=== PATIENT | male | born 1960 | race Caucasian/White ===

== ENCOUNTER 2018-06-18 23:26 | Inpatient (IN) ==
[2018-06-19] MEDS ORDERED: Naloxone 0.4 MG/ML INJ IVP PRN ×2 (02:25→03:54)
[2018-06-19] MEDS ORDERED: traZODone 50 MG TABLET PO PRN (02:30)
--- NOTE | 2018-06-19 02:48 | Internal Med History&Physical ---
Date of Encounter: 06/19/18 Time of Encounter: 01:46 Internal Medicine - H&P: HPI Admitted From: Emergency Dept ([facility]) Plans for Post Hospital Care: Home History of present illness: Mr. Cruz is a 58 year old male who was initially seen at [facility] ED after becoming lightheaded and falling off a stool while drinking at a bar. Patient admits he was diaphoretic before and after falling; he reports nausea and one episode of non-bloody emesis after falling. He denies associated headache, chest pain, palpitations, dyspnea, loss of speech, slurred speech, confusion, extremity weakness. He also denies fevers, chills, night sweats. Patient denies any recent med changes or h/o OK. Admits to having a heart cath 5 years ago ([place]) while being worked up for TIA, work up also included carotid ultrasound and cardiac echo. States his heart cath showed 50% blockage of the small arteries and we was placed on aspirin and hypertension medications. During transfer to [facility], EMS noted pt was significantly hypotensive at 62/ 43 and his BP improved slightly (80's systolic) in [facility] ED. Imaging done in [facility] included a CT head which was negative for acute intracranial hemorrhage, but showed an area suggestive of an acute infarct. Per ED report, Dr. Coon of neurology was consulted regarding possible acute infarct on CT and feels it is most likely due to artifact. Lab work obtained in [facility] showed leukocytosis, negative troponin, and grossly normal metabolic panel. Urine drug screen was negative and alcohol level was <10. Patient transferred to [facility] for further care and workup of his hypotensive episode. Past Med Surg Social Fam HX - Past Medical History Medical history: arthritis, COPD, coronary artery disease, hypertension Psychiatric history: anxiety, depression - Past Surgical History Surgical History: hip replacement, knee replacement, orthopedic, other Additional surgical history: back surgery, colonoscopy - Social History Smoking Status: Current every day smoker Packs per day: .5 Smokeless Tobacco Status: No Alcohol use: occasionally Drug use: none Internal Medicine - H&P: Meds Aspirin [Lo-Dose Aspirin EC] 81 mg PO DAILY 01/30/18 [History] Lisinopril-HCTZ 10-12.5 [Prinzide 10-12.5] 1 each PO DAILY 01/30/18 [History] Trazodone HCl 300 mg PO HS PRN 01/30/18 [History] Tiotropium [Spiriva] 18 mcg IH DAILY 02/06/18 [History] 3 Allergy/AdvReac Type Severity Reaction Status Date / Time No Known Allergies Allergy Verified 07/09/17 14:07 All Systems PM: A 10-system review of systems was performed and is negative for pertinent findings except as documented above in the HPI. - Constitutional Constitutional: as per HPI, no anorexia, no fatigue, no weakness - EENT Eyes: no change in vision - Cardiovascular Cardiovascular ROS IM: as per HPI, diaphoresis, lightheadedness, no chest pain, no dyspnea, no edema, no irregular heart rhythm, no palpitations - Respiratory Respiratory: cough (chronic, unchanged from baseline), no dyspnea, no wheezing - Gastrointestinal Gastrointestinal: constipation, no abdominal pain, no coffee ground emesis, no diarrhea, no hematochezia, no melena - Genitourinary Genitourinary ROS male: no difficulty urinating, no dysuria, no hematuria - Musculoskeletal Musculoskeletal ROS IM: no numbness, no tingling - Neurological Neurological ROS: no abnormal speech, no confusion, no numbness, no paresthesias - Constitutional Vitals: Temp Pulse Resp BP Pulse Ox 98.1 F 85 16 110/72 96 06/19/18 01:10 06/19/18 01:10 06/19/18 01:10 06/19/18 01:10 06/19/18 01:10 Exam: General: vitals noted, AAO x3, no acute distress, answers questions appropriately HEENT: Normocephalic, head atraumatic, EOMI, PERRL Neck: trachea midline, supple Cardiovascular: RRR, no murmurs, no peripheral edema, peripheral pulses 2+ Respiratory: No wheezes/rhonchi/rales, no respiratory distress, CTAB Abdomen: Soft, nontender, normal bowel sounds present, non-distended, no rebound /rigidity/guarding MSK: RLE ROM limited by pain, all other extremities show good ROM Ext: no edema, no cyanosis, no clubbing Neuro: Alert, oriented x3, no focal deficits, no speech deficits, no facial droop, mentation intact, spontaneously moves all four extremities (RLE movement limited d/t pain), motor strength 5/5 all extremities, sensation grossly intact Psych: normal mood, normal affect, cooperative with exam Internal Med - H&P Results - Labs CBC & Chem 7: 06/19/18 03:44 06/19/18 03:44 - Assessment and plan (1) Episode of syncope Current Visit: Yes Status: Acute Assessment and plan: Etiology unclear--cannot exclude ACS Electrolytes grossly normal Hypovolemia less likely--denies diarrhea, bloody bowel movements, hematemesis, eating and drinking normally Anemia less likely given appropriate hgb and hct Cardiac monitoring Trend troponins Repeat EKG Echocardiogram Cardiology consult Carotid duplex bilateral Neurology consult Qualifiers: Syncope type: unspecified Qualified Code(s): R55 - Syncope and collapse (2) TIA (transient ischemic attack) Current Visit: Yes Status: Suspected Assessment and plan: Head CT negative for intracranial hemorrhage, but possible acute infarct in posterior left temporal lobe Pt reports h/o mini-strokes One-time dose 80 mg atorvastatin Neurology consulted (3) Hypotension Current Visit: No Status: Resolved Assessment and plan: On scene, EMS measured BP 62/43--SBP improved to 80 on arrival to [facility] Currently stable at 116/76 Hold home lisinopril-HCTZ IV NS @ 100 cc/hr Qualifiers: Hypotension type: unspecified hypotension type Qualified Code(s): I95.9 - Hypotension, unspecified (4) CAD (coronary artery disease) Current Visit: Yes Status: Chronic Assessment and plan: Pt reports h/o LHC in [place] 5 years ago that showed 50% blockage of small arteries Not currently on statin therapy Continue ASA 81 mg Check lipid panel Qualifiers: Coronary Disease-Associated Artery/Lesion type: unspecified vessel or lesion type [place] vs. transplanted heart: [place] heart Associated angina: angina presence unspecified Qualified Code(s): I25.10 - Atherosclerotic heart disease of [place] coronary artery without angina pectoris (5) Leukocytosis Current Visit: Yes Status: Acute Assessment and plan: WBC 15 Etiology unclear--possibly acute stress reaction; pt afebrile and no infectious source identified Recheck CBC Qualifiers: Leukocytosis type: unspecified Qualified Code(s): D72.829 - Elevated white blood cell count, unspecified (6) Hypertension Current Visit: No Status: Chronic Assessment and plan: Hold home med for now, last BP 110/72 Qualifiers: Hypertension type: unspecified Qualified Code(s): I10 - Essential (primary ) hypertension (7) COPD (chronic obstructive pulmonary disease) Current Visit: Yes Status: Chronic Assessment and plan: Continue Spiriva inhaler Albuterol neb PRN Qualifiers: COPD type: unspecified COPD Qualified Code(s): J44.9 - Chronic obstructive pulmonary disease, unspecified (8) DVT prophylaxis Current Visit: Yes Status: Acute Assessment and plan: 5,000 units SQ Heparin Q12H - Time Spent With Patient Total time spent is greater than 50% in coordination of care (as documented) at patient's floor/unit and/or counseling patient:
[2018-06-19] MEDS ORDERED: 0.9 % Sodium Chloride 1,000 ML IVC SCH (03:45)
[2018-06-19] MEDS ORDERED: Albuterol 2.5 MG/3 ML NEBULIZER IH PRN (03:48)
[2018-06-19 04:12] LABS: Basophils # 0.1 K/mcL (0.0-0.2); Basophils % 0.4 %; Eosinophils # 0.2 K/mcL (0.0-0.6); Eosinophils % 1.1 %; Hematocrit 37.9 % (37.5-50.1); Hemoglobin 12.9 g/dL (12.9-16.9); Immature Granulocytes % 0.7 % (0-4); Lymphocytes # 3.7 K/mcL (0.6-4.6); Lymphocytes % 20.9 %; Mean Corpuscular Hemoglobin 29.9 pg (28.0-33.3); Mean Corpuscular Volume 87.7 fL (83.0-100.0); Mean Platelet Volume 9.6 fL (9.4-12.4); Monocytes % 5.3 %; Neutrophils # 12.7 K/mcL (1.6-8.9); Platelet Count 257 K/mcL (140-400); Red Blood Count 4.32 M/mcL (4.19-5.50); Red Cell Distribution Width 14.3 % (11.5-14.5); Segmented Neutrophils % 71.6 %
[2018-06-19 04:35] LABS: Chol/HDL Ratio 3.1 (0-4.9); Cholesterol 127 mg/dL (< 200); HDL Cholesterol 41 mg/dL (40-59); LDL Cholesterol,Calculated 73 mg/dL (0-99); Triglycerides 66 mg/dL (< 150)
[2018-06-19 04:36] LABS: Troponin I < 0.03 ng/mL (< 0.04)
[2018-06-19 04:37] LABS: Alanine Aminotransferase 13 Units/L (7-52); Albumin 3.7 g/dL (3.5-5.7); Albumin/Globulin Ratio 2.2 (1.1-2.2); Alkaline Phosphatase 79 Units/L (34-104); Aspartate Amino Transferase 13 Units/L (13-39); BUN/Creatinine Ratio 22 (6-26); Bilirubin,Total 0.6 mg/dL (0.3-1.0); Blood Urea Nitrogen 16 mg/dL (8-23); Calcium 8.8 mg/dL (8.6-10.3); Carbon Dioxide 21 mEq/L (23-29); Chloride 104 mEq/L (98-107); Globulin 1.7 g/dL (2.4-3.5); Glucose 101 mg/dL (70-105); Osmolality,Calculated 275 (280-300); Potassium 3.5 mEq/L (3.5-5.1); Sodium 132 mEq/L (136-145); Total Protein 5.4 g/dL (6.4-8.9); eGFR For Non-African Americans > 60 (> 60)
[2018-06-19 04:50] LABS: Thyroid Stimulating Hormone 0.458 mcIU/mL (0.340-5.600)
[2018-06-19] MEDS: *HR* Heparin 5,000 UNIT/ML VIAL SQ SCH ×2 (05:45→20:43)
--- NOTE | 2018-06-19 07:35 | Event Note ---
Date of Encounter: 06/19/18 Time of Encounter: 03:00 Patient seen and examined. Case discussed with resident. Please see H&P for further details. In short, Patient is a 58-year-old male with a past medical history of COPD and reported TIAs in the past who initially presented to [facility] after patient had fallen from a bar stool earlier that evening. EMS arrived and found patient to be hypotensive with a blood pressure of 60/40. Patient responded to fluid resuscitation. CT of the head revealed what appeared to be an acute infarct in the left posterior temporal lobe. Neurology was consulted who looked at the CAT scan and felt findings to be an artifact. Patient was subsequently transferred to [place] for further evaluation of presyncopal episode associated with hypotension. Laboratory results notable for only for a mild leukocytosis of 15. EKG was unremarkable. Negative troponins. Toxicology screen unremarkable. No focal findings on physical examination or evidence of infection. Leukocytosis possibly stress-induced. Patient does have a history of ulcerative colitis but reports no recent diarrhea , in fact patient states he has been constipated. Patient currently hemodynamically stable status post 2 L of fluid boluses. Patient received loading dose of aspirin. We will continue maintenance fluids; telemetry. Trend troponin. Presyncope/TIA workup: Echocardiogram and bilateral carotid duplex. Neuro checks. Neurology and cardiology consult.
--- NOTE | 2018-06-19 10:14 | Internal Med Progress Note ---
<VicentematiasNilay - Last Filed: 06/19/18 11:40> Hospitalist Progress Note - Encounter Date of Encounter: 06/19/18 Time of Encounter: 10:10 - Subjective Interval History: Patient reports doing well this morning. Reviewed through hpi with patient and patient did not pass out, had no symptoms prior to knee giving way and falling, did not hit head. Patient has history of htn, but no history of arrhythmias or low bp in the past. Reports having some right sided groin pain after the fall yesterday. Denies fevers, chills, sweats, nausea, vomiting, headaches, lightheadedness, dizziness, changes in vision or hearing, chest pain, palpitations, shortness of breath, cough, abdominal pain, changes in bowels or bladder, weakness, loss of sensation, or rash. - Exam Vitals: Temp Pulse Resp BP Pulse Ox 98.6 F 70 18 108/70 98 06/19/18 07:04 06/19/18 07:04 06/19/18 07:04 06/19/18 07:04 06/19/18 07:04 Exam: General: Awake, alert and oriented x 4, no acute distress, answer questions appropriately HEENT: moist mucus membranes, EOMI, PERRLA, no carotid bruits Neck: no adenopathy CV: RRR, no murmurs, no carotid bruit Lungs: CTAB, no wheezes, rhonchi, or rales Abd: Soft, nontender, normal bowels sounds MSK: 5/5 strenght bilaterally Ext: no edema, cyanosis, or clubbing Neuro: CN 2-12 grossly intact, no focal deficits, moves all extremities spontaneously, limited RLE due to pain, 5/5 strenght bilaterally, sensation intact. - Assessment and Plan (1) Pre-syncope Current Visit: Yes Status: Acute Assessment and Plan: Etiology unclear, but most likely related to hypotension of uncertain etiology. No loss of consciousness, no head injury. Due to abnormal CT Head considering neuro vs cardiac Troponin 0.03, 0.03, 0.03 Carotid duplex with critical Left proximal carotid disease EKG with normal sinus rhythm Echo completed: EF 60-65%, normal LV function and structure, normal RV function and structure, no PFO, no valvular dysfunction. Orthostatic vitals unremarkable UDS negative -Cardiology consulted -Neurology consulted -Continue monitoring vitals. -Fall precautions (2) Abnormal CT of the head Current Visit: Yes Status: Acute Assessment and Plan: CT Head revealed no acute intracranial hemorrhage, mild cerebral atrophy, and small focal area of cortical effacement in left lob posterior temporal lobe suggestive of possible acute infarct. Patient has otherwise not had any neurological deficits on history of clinically. Neurology reviewed images and findings likely artifact. Neurology note reviewed, will order MRI without contrast to confirm diagnosis as patient had hypotension, elevated WBC, and newly found left carotid arter stenosis. -Continue with statin, aspirin at this time. Cholesterol levels no significantly elevated. -MRI ordered per Neuro, will likely not be completed today unless ordered stat as MRI is down. (3) Hypotension Current Visit: No Status: Resolved Assessment and Plan: Upon EMS arrival, patient had bp in 60/40s, continued low bp in [facility] ED which responded to 2L normal saline. Bp otherwise stable during and upon hospital arrival. -Cardiology consulted (4) Hypertension Current Visit: No Status: Chronic Assessment and Plan: Known history of htn on lisinopril-hctz at home for > 6 months without recent changes in dose. Holding home med at this time due to hypotensive on presentation to [facility] ED. (5) Carotid stenosis, left Current Visit: Yes Status: Acute Assessment and Plan: Prelim Cartoid duplex: Left proximal ICA critical stenosis 80-99%, Right proximal ICA nonstenotic plaque. -CT angio neck -Consult Vascular surgery. (6) CAD (coronary artery disease) Current Visit: No Status: Chronic Assessment and Plan: History of CAD per patient, cath revealed 50% blockages, no PCI or stents. (7) Leukocytosis Current Visit: Yes Status: Acute Assessment and Plan: Elevated WBC on repeat. 15.0 and 17.8, historically was normal. CXR unremarkable UA negative Patient otherwise asymptomatic. Likely reactive. Uncertain etiology, may consider blood smear if still unable to determine a source. Continue monitoring. (8) DVT prophylaxis Current Visit: Yes Status: Acute Assessment and Plan: heparin sq DVT Prophylaxis: heparin sq - Time Spent with Patient Total time spent is greater than 50% in coordination of care (as documented) at patient's floor/unit and/or counseling patient: Internal Medicine: Result - Labs CBC & Chem 7: 06/19/18 03:44 06/19/18 03:44 Labs: Short CBC 06/19/18 Range/Units 03:44 WBC 17.8 H (4.3-11.1) K/mcL Hgb 12.9 (12.9-16.9) g/dL Hct 37.9 (37.5-50.1) % Plt Count 257 (140-400) K/mcL Neutrophils # 12.7 H (1.6-8.9) K/mcL BMP 06/19/18 03:44 Sodium 132 L Potassium 3.5 Chloride 104 Carbon Dioxide 21 L BUN 16 Creatinine 0.73 Glucose 101 Calcium 8.8 Cardiac Enzymes 06/19/18 Range/Units 03:44 Troponin I < 0.03 (< 0.04) ng/mL Liver Function 06/19/18 Range/Units 03:44 Total Bilirubin 0.6 (0.3-1.0) mg/dL AST 13 (13-39) Units/L ALT 13 (7-52) Units/L Alkaline Phosphatase 79 (34-104) Units/L Albumin 3.7 (3.5-5.7) g/dL Consult Discharge Plan - Plan Referrals: [facility] [Primary Care Provider] - (Your appointment has been webrequested. Our offices will contact you with an appointment time and date. If you do not hear from us, feel free to call and schedule an appointment.) <Alla Haley - Last Filed: 06/19/18 13:12> Hospitalist Progress Note - Encounter Date of Encounter: 06/19/18 - Exam Vitals: Temp Pulse Resp BP Pulse Ox 98.1 F 73 18 107/70 97 06/19/18 10:22 06/19/18 10:22 06/19/18 10:22 06/19/18 10:22 06/19/18 10:22 - Assessment and Plan (1) Hypotension Current Visit: No Status: Resolved (2) Episode of syncope Current Visit: Yes Status: Acute (3) TIA (transient ischemic attack) Current Visit: Yes Status: Suspected (4) Hypertension Current Visit: No Status: Chronic (5) COPD (chronic obstructive pulmonary disease) Current Visit: Yes Status: Chronic (6) CAD (coronary artery disease) Current Visit: No Status: Chronic (7) DVT prophylaxis Current Visit: Yes Status: Acute (8) Leukocytosis Current Visit: Yes Status: Acute - Time Spent with Patient Total time spent is greater than 50% in coordination of care (as documented) at patient's floor/unit and/or counseling patient: Internal Medicine: Result - Labs CBC & Chem 7: 06/19/18 03:44 06/19/18 03:44 Labs: Short CBC 06/19/18 Range/Units 03:44 WBC 17.8 H (4.3-11.1) K/mcL Hgb 12.9 (12.9-16.9) g/dL Hct 37.9 (37.5-50.1) % Plt Count 257 (140-400) K/mcL Neutrophils # 12.7 H (1.6-8.9) K/mcL BMP 06/19/18 03:44 Sodium 132 L Potassium 3.5 Chloride 104 Carbon Dioxide 21 L BUN 16 Creatinine 0.73 Glucose 101 Calcium 8.8 Cardiac Enzymes 06/19/18 06/19/18 Range/Units 03:44 09:51 Troponin I < 0.03 < 0.03 (< 0.04) ng/mL Liver Function 06/19/18 Range/Units 03:44 Total Bilirubin 0.6 (0.3-1.0) mg/dL AST 13 (13-39) Units/L ALT 13 (7-52) Units/L Alkaline Phosphatase 79 (34-104) Units/L Albumin 3.7 (3.5-5.7) g/dL - Impressions Impressions Echocardiogram 06/19/18 02:43 Impressions: LVEF 60-65%. Normal LV chamber size, wall thickness and function. Normal left ventricular diastolic function. Normal right ventricular structure and function. No evidence of PFO by color Doppler. No significant valvular dysfunction. Unable to estimate RVSP due to lack of TR jet. Left Ventricular Wall Motion: Rest Echo Findings All wall segments showed normal motion. Findings: Study Quality * Technically adequate exam. ECG Findings * Normal sinus rhythm. Left Ventricle * LVEF 60-65%. * Normal LV chamber size, wall thickness and function. * Normal left ventricular diastolic function. Right Ventricle * Normal right ventricular structure and function. Left Atrium * Normal left atrial size. Right Atrium * Normal right atrial size. Interatrial Septum * No evidence of PFO by color Doppler. Aortic Valve * Trileaflet aortic valve. * Normal aortic valve structure. * No aortic regurgitation. * No aortic stenosis. Mitral Valve * Normal mitral valve structure. * No mitral regurgitation. * No mitral stenosis. Tricuspid Valve * Normal tricuspid valve structure. * No tricuspid regurgitation. * No tricuspid stenosis. * Unable to estimate RVSP due to lack of TR jet. Pulmonic Valve * Normal pulmonic valve structure. * No pulmonic regurgitation. Aorta * Normally sized aortic root. Pericardium * The pericardium appears normal. IVC * Normal IVC dimensions and inspiratory collapse. Pulmonary Artery * Normal visualized portions of the main pulmonary artery. Neck CTA 06/19/18 10:23 IMPRESSION: Critical stenosis at the proximal aspect of the left internal carotid artery (95% stenosis) secondary to heavy soft plaques. The remainder of the major arteries of the neck are within normal limits. D/ / Rubens Mcqueen MD / Rubens Mcqueen MD Interpreting Provider: Rubens Mcqueen MD - Attending Attestation I have seen and examined this pt independently. I have discussed with resident physician Dr Root regarding the management plan. Agree with the documentation. <Nilay Root - Last Filed: 06/19/18 11:40> (3) Hypotension Qualifiers: Hypotension type: unspecified hypotension type Qualified Code(s): I95.9 - Hypotension, unspecified (4) Hypertension Qualifiers: Hypertension type: essential hypertension Qualified Code(s): I10 - Essential (primary) hypertension (6) CAD (coronary artery disease) Qualifiers: Coronary Disease-Associated Artery/Lesion type: unspecified vessel or lesion type [place] vs. transplanted heart: [place] heart Associated angina: angina presence unspecified Qualified Code(s): I25.10 - Atherosclerotic heart disease of [place] coronary artery without angina pectoris (7) Leukocytosis Qualifiers: Leukocytosis type: unspecified Qualified Code(s): D72.829 - Elevated white blood cell count, unspecified <Alla Haley - Last Filed: 06/19/18 13:12> (1) Hypotension Qualifiers: Hypotension type: unspecified hypotension type Qualified Code(s): I95.9 - Hypotension, unspecified (2) Episode of syncope Qualifiers: Syncope type: unspecified Qualified Code(s): R55 - Syncope and collapse (4) Hypertension Qualifiers: Hypertension type: essential hypertension Qualified Code(s): I10 - Essential (primary) hypertension (5) COPD (chronic obstructive pulmonary disease) Qualifiers: COPD type: unspecified COPD Qualified Code(s): J44.9 - Chronic obstructive pulmonary disease, unspecified (6) CAD (coronary artery disease) Qualifiers: Coronary Disease-Associated Artery/Lesion type: unspecified vessel or lesion type [place] vs. transplanted heart: [place] heart Associated angina: angina presence unspecified Qualified Code(s): I25.10 - Atherosclerotic heart disease of [place] coronary artery without angina pectoris (8) Leukocytosis Qualifiers: Leukocytosis type: unspecified Qualified Code(s): D72.829 - Elevated white blood cell count, unspecified
[2018-06-19] MEDS ORDERED: Isovue-370 500 ML INFUS..BTL IV ONE (10:23)
--- NOTE | 2018-06-19 10:28 | Neurology - Consult Note ---
Date of Encounter: 06/19/18 Time of Encounter: 10:19 Assessment and Plan (1) Abnormal CT of the head Current Visit: Yes Status: Acute As mentioned above, the CT of head findings of focal hypointensity at the left parietal region is likely an artefact. It is on on one slice and there is no clinical correlate. However, He does have clinical symptoms of hypotension, elevated WBC and now left carotid artery stenosis so do need MRI of brain without contrast to confirm the diagnosis. WIll also obtain CTA of neck and brain to evaluate left ICA stenosis. Please continue medical and supportive care History of Present Illness Chief complaint: Fall, weakness, nausea and abnormal CT of head HPI: Mr. Cruz is a 58 year old male with PMH significant for HTN, depression, insomnia, chronic back pain, right hip replacement who developed fall, weakness and nausea. Patient was drinking in a bar and he developed weakness, diaphoresis , and fall after going to bathroom. After the fall he developed nausea and vomiting. He was brought to ER at [facility] where CT of head showed acute to subacute infarct at the left parietal region. He was given IV fluid and his BP improved and he has no focal neurological deficits. No headaches and no speech difficulty. He drinks three beers every other day he says. Currently he feels much better back to his baseline. CT of head was reviewed and not convinced that this was an acute infarct. However, recommended MRI of brain without contrast to confirm the diagnosis. Carotid artery duplex also shows left ICA stenosis therefore will obtain CTA of neck and brain Past Med Surg Social Fam HX - Past Medical History Medical history: arthritis, COPD, coronary artery disease, hypertension Psychiatric history: anxiety, depression - Past Surgical History Surgical History: hip replacement, knee replacement, orthopedic, other Additional surgical history: back surgery, colonoscopy - Social History Smoking Status: Current every day smoker Packs per day: .5 Smokeless Tobacco Status: No Alcohol use: occasionally Drug use: none Medications and Allergies Aspirin [Lo-Dose Aspirin EC] 81 mg PO DAILY 01/30/18 [History] Lisinopril-HCTZ 10-12.5 [Prinzide 10-12.5] 1 each PO DAILY 01/30/18 [History] Trazodone HCl 300 mg PO HS PRN 01/30/18 [History] Fluticasone Propionate Nasal [Flonase] 2 spr NS DAILY 06/19/18 [History] Mesalamine [Lialda] 1.2 gm PO Q8H 06/19/18 [History] Sertraline [Zoloft] 100 mg PO DAILY 06/19/18 [History] 3 Allergy/AdvReac Type Severity Reaction Status Date / Time No Known Allergies Allergy Verified 07/09/17 14:07 All Systems: The remainder of the systems were reviewed and are negative Physical Examination - Vital Signs Vital Signs: Initial Vital Signs Temp Pulse Resp BP Pulse Ox 98.1 F 85 16 110/72 96 06/19/18 01:10 06/19/18 01:10 06/19/18 01:10 06/19/18 01:10 06/19/18 01:10 - Constitutional General appearance: comfortable - Neurologic Detailed motor examination: full strength in all major muscle groups Motor examination - right side: 5/5: deltoids, biceps, triceps, wrist flexion, wrist extension, loader malt house, hip flexors, tibialis Anterior, quadriceps, toe extension (EHL), plantarflexion Motor examination - left side: 5/5: deltoids, biceps, triceps, wrist flexion, wrist extension, hip flexors, loader malt house, quadriceps, tibialis Anterior, toe extension (EHL), plantarflexion Detailed sensory examination: intact Posture: other (Nne) Reflex and gait examination: intact Reflexes: Biceps: 2+, Triceps: 2+, Brachioradialis: 2+, Patella: 2+, Achilles: 2 + Mental Status Examination: awake, alert, oriented to person, oriented to place, oriented to time, follows commands appropriately, answers questions appropriately, no agnosia, no aphasia, no aproxia Cranial nerve examination: PERRL, EOMI, visual dover intact, corneal reflexes brisk symmetrically, sensory to face intact, mastication intact, no facial asymmetry is present, no dysarthria, hearing is intact symmetrically, soft palate elevates bilaterally upon phonation, gag reflex intact, flexes SCM and trapezius muscles symmetrically with full power, tongue protrudes midline, no atrophy or facial fasiculations present Cerebellar examination: no dysmetria, performs finger to nose and heel to allen symmetrically without ataxia, no gait ataxia, no truncal ataxia, no difficulty with rapid alternating movements Results - Laboratory Findings CBC and BMP: 06/19/18 03:44 06/19/18 03:44 Abnormal lab findings: Abnormal lab results WBC 17.8 K/mcL (4.3-11.1) H 06/19/18 03:44 Neutrophils # 12.7 K/mcL (1.6-8.9) H 06/19/18 03:44 Sodium 132 mEq/L (136-145) L 06/19/18 03:44 Carbon Dioxide 21 mEq/L (23-29) L 06/19/18 03:44 Calculated Osmolality 275 (280-300) L 06/19/18 03:44 Serum Total Protein 5.4 g/dL (6.4-8.9) L 06/19/18 03:44 Globulin 1.7 g/dL (2.4-3.5) L 06/19/18 03:44 Consult Discharge Plan - Plan Referrals: Naomi Lay, HOT BILLET SHEAR OPERATOR [Primary Care Provider] - (Your appointment has been webrequested. Our offices will contact you with an appointment time and date. If you do not hear from us, feel free to call and schedule an appointment.)
[2018-06-19] MEDS: Aspirin Enteric Coated 81 MG Tablet PO SCH (11:00)
[2018-06-19] MEDS: Tiotropium 18 MCG inhalation IH SCH (11:02)
--- NOTE | 2018-06-19 11:09 | Cardiology Consult Note ---
<Emelia Blake - Last Filed: 06/19/18 13:15> Date of Encounter: 06/19/18 Time of Encounter: 10:00 Assessment and Plan (1) Fall Current Visit: Yes Status: Chronic Patient presented to the ED yesterday via EMS after fall at local bar. He reports his right leg gave out while standing. No loss of consciousness reported. Patient reports may have felt dizzy; however felt to happen often. Hypotension upon arrival to ED, improved with IVF resuscitation. Found to have critical LICA stenosis on neck CTA--Vascular surgery consulted. TTE showed normal LVEF, normal wall motion, no significant valvular dysfunction. No further recommendations as inpatient from Cardiology. Recommend close outpatient follow-up with PCP. Qualifiers: Encounter type: initial encounter Qualified Code(s): W19.XXXA - Unspecified fall, initial encounter (2) Carotid stenosis, left Current Visit: Yes Status: Acute Critical LICA stenosis, 95% Vascular surgery consulted Discussion w patient/family: The assessment and plan as outlined above was discussed with the patient and/or family members who expressed understanding and agreement. All questions were answered. Thank you for involving us in the care of your patient. Please call with any questions. The patient will be discussed and reviewed with Dr. Mary; changes to be made accordingly. History of Present Illness Consult date: 06/19/18 Requesting physician: Nilay Root Consult reason: Syncope Chief complaint: Fall History of present illness: Mr. Cruz is a 58 year old male with PMHx significant of HTN, prior TIA's who presented as a transfer from [place] ED d/t reported syncopal episode with fall off a barstool yesterday. he was found to be hypotensive upon arrival to [place] and then transferred to [facility] for further evaluation. Patient reports sitting at bar yesterday, had 2 beers when he went to stand up and his right leg suddenly gave out and he fell to the ground, the senior water/wastewater engineer then called EMS. Patient denies loss of consciousness or any other pre-syncopal symptoms. No chest pain or shortness of breath. He reports drinks at least 3 beers every other day. Past Med Surg Social Fam HX - Past Medical History Attestation: Yes The following information was validated with the patient. Medical history: arthritis, COPD, hypertension Psychiatric history: anxiety, depression - Past Surgical History Surgical History: hip replacement, knee replacement, orthopedic, other Additional surgical history: back surgery, colonoscopy - Social History Smoking Status: Current some day smoker Packs per day: .5 Smokeless Tobacco Status: No Alcohol use: occasionally Drug use: none - Family History Mother Living Status: Still Living Hx Family Cardiac Disorders: Yes (HTN) Father History Unknown: Yes Living Status: Medications and Allergies Aspirin [Lo-Dose Aspirin EC] 81 mg PO DAILY 01/30/18 [History] Lisinopril-HCTZ 10-12.5 [Prinzide 10-12.5] 1 each PO DAILY 01/30/18 [History] Trazodone HCl 300 mg PO HS PRN 01/30/18 [History] Fluticasone Propionate Nasal [Flonase] 2 spr NS DAILY 06/19/18 [History] Mesalamine [Lialda] 1.2 gm PO Q8H 06/19/18 [History] Sertraline [Zoloft] 100 mg PO DAILY 06/19/18 [History] 3 Allergy/AdvReac Type Severity Reaction Status Date / Time No Known Allergies Allergy Verified 07/09/17 14:07 All Systems Review: The remainder of the systems were reviewed and are negative - Cardiovascular Cardiovascular: as per HPI Physical Examination Vital Signs, Last 4 Hours Temp Pulse Pulse Pulse Pulse Resp BP 06/19/18 10:22 98.1 F 73 73 74 89 18 107/70 BP BP BP Pulse Ox 06/19/18 10:22 107/70 104/49 106/78 97 General: Conversant HEENT: Atraumatic, Normocephaly Cardiac: Reg Rate and Rhythm, Normal S1 and S2 Lungs: Normal Breath Sounds Neuro: Alert and responsive Abdomen: Soft Skin: No rashes noted on visualized skin Musculoskeletal: No Chest Wall Tenderness Extremities: No Edema, Normal Pulses Results 06/19/18 03:44 06/19/18 03:44 Lab Results 06/19/18 06/19/18 06/19/18 03:44 03:44 03:44 WBC 17.8 H Hgb 12.9 Hct 37.9 Plt Count 257 Sodium 132 L Potassium 3.5 Chloride 104 Carbon Dioxide 21 L BUN 16 Creatinine 0.73 Glucose 101 Calcium 8.8 Total Bilirubin 0.6 AST 13 ALT 13 Alkaline Phosphatase 79 Troponin I < 0.03 TSH 0.458 06/19/18 09:51 WBC Hgb Hct Plt Count Sodium Potassium Chloride Carbon Dioxide BUN Creatinine Glucose Calcium Total Bilirubin AST ALT Alkaline Phosphatase Troponin I < 0.03 TSH Active Medications Albuterol Sulfate (Proventil Neb) 2.5 mg IH [id number] PRN; Protocol PRN Reason: Shortness Of Breath/Wheezing Stop: 12/19/18 03:49 Aspirin (Aspirin Ec) 81 mg PO DAILY MICHAEL Stop: 12/19/18 09:01 Last Admin: 06/19/18 11:00 Dose: 81 mg Atorvastatin Calcium (Lipitor) 80 mg PO HS MICHAEL Stop: 12/19/18 21:01 Heparin Sodium (Porcine) (Heparin) 5,000 unit SQ Q12HCO MICHAEL Stop: 12/19/18 06:01 Last Admin: 06/19/18 05:45 Dose: Not Given Sodium Chloride (0.9 % Sodium Chloride) 1,000 mls @ 100 mls/hr IVC .Q10H [facility] Stop: 06/19/18 13:44 Last Admin: 06/19/18 04:33 Dose: 100 mls/hr Naloxone HCl (Narcan) 0.4 mg IVP Q2MIN PRN PRN Reason: SEE COMMENTS Stop: 12/19/18 02:26 Naloxone HCl (Narcan) 0.4 mg IVP Q2MIN PRN PRN Reason: SEE COMMENTS Stop: 12/19/18 03:55 Tiotropium Fonda (Spiriva) 18 mcg IH DAILY [facility] Stop: 12/19/18 09:01 Last Admin: 06/19/18 11:02 Dose: 18 mcg Trazodone HCl (Trazodone) 300 mg PO HS PRN PRN Reason: Sleep - Imaging and Cardiology Echo: report reviewed Other Results: 12 hour tele: avg HR=68 SR. No events noted. - EKG Interpretation EKG results cardiology: personally reviewed Consult Discharge Plan - Plan Referrals: Naomi Lay, MICROSOFT EXCHANGE ARCHITECT [Primary Care Provider] - (Your appointment has been webrequested. Our offices will contact you with an appointment time and date. If you do not hear from us, feel free to call and schedule an appointment.) <Zandra Mary - Last Filed: 06/19/18 17:11> Date of Encounter: 06/19/18 - Attending Attestation Patient was seen and evaluated independently by me. Findings, assessment and plan were discussed at length with patient, questions answered. Agree with nurse practitioner's documentation. Addition as follows, 58 yoCM ho TIA HTN, LBP. P/w a fall from leg weakness and dizziness on standing after EtOH. Short-lived hypotension. Found to have severe L-ICA stenosis. Asymptomatic from CV stand of point and no ho of syncope, arrhythmia, CHF or CAD. VSS, physical exam unrevealing. ECG/Tele and Echo unremarkable. A: mechanical fall w/o LOC, possible orthostatic episode on EtOH; critical L- ICA stenosis. P: avoid dehydration and risk drinking f/u vascular surgery f/u PCP Zandra Mary MD, PhD Assessment and Plan Discussion w patient/family: The assessment and plan as outlined above was discussed with the patient and/or family members who expressed understanding and agreement. All questions were answered. Thank you for involving us in the care of your patient. Please call with any questions. History of Present Illness History of present illness: Mr. Cruz is a 58 year old male All Systems Review: The remainder of the systems were reviewed and are negative Physical Examination Vital Signs, Last 4 Hours Temp Pulse Resp BP Pulse Ox 06/19/18 16:20 97.7 F 71 18 105/72 98 Results 06/19/18 03:44 06/19/18 03:44 Lab Results 06/19/18 06/19/18 06/19/18 03:44 03:44 03:44 WBC 17.8 H Hgb 12.9 Hct 37.9 Plt Count 257 Sodium 132 L Potassium 3.5 Chloride 104 Carbon Dioxide 21 L BUN 16 Creatinine 0.73 Glucose 101 Calcium 8.8 Total Bilirubin 0.6 AST 13 ALT 13 Alkaline Phosphatase 79 Troponin I < 0.03 TSH 0.458 06/19/18 09:51 WBC Hgb Hct Plt Count Sodium Potassium Chloride Carbon Dioxide BUN Creatinine Glucose Calcium Total Bilirubin AST ALT Alkaline Phosphatase Troponin I < 0.03 TSH
--- NOTE | 2018-06-19 18:25 | Vascular/Endovasc Consult Note ---
Date of Encounter: 06/19/18 Time of Encounter: 17:45 Assessment and Plan (1) COPD (chronic obstructive pulmonary disease) Current Visit: Yes Status: Chronic Patient has history of chronic tobacco use and he has been smoking since age 16. Qualifiers: COPD type: unspecified COPD Qualified Code(s): J44.9 - Chronic obstructive pulmonary disease, unspecified (2) CAD (coronary artery disease) Current Visit: No Status: Chronic Patient is status post a previous cardiac catheterization performed in [place]. Qualifiers: Coronary Disease-Associated Artery/Lesion type: unspecified vessel or lesion type [place] vs. transplanted heart: [place] heart Associated angina: angina presence unspecified Qualified Code(s): I25.10 - Atherosclerotic heart disease of [place] coronary artery without angina pectoris (3) Carotid stenosis, left Current Visit: Yes Status: Acute Duplex scan and CT angiogram of the neck are consistent with a critical high- grade lesion. Due to the severity of the stenosis I recommended that the patient undergo urgent left carotid endarterectomy. The patient has already eaten today. Therefore I recommended that he be made nothing by mouth and we performed a left carotid surgery tomorrow. The potential risks and benefits as well as complications and alternatives were reviewed with the patient. The potential risk of stroke was also highlighted. I did call the patient's mother by telephone as well and discussed these issues. The patient wishes to proceed. We will make the necessary arrangements for surgery for tomorrow. (4) Fall Current Visit: Yes Status: Chronic Patient had fall yesterday while sitting on a stool at a tavern in [place]. Qualifiers: Encounter type: initial encounter Qualified Code(s): W19.XXXA - Unspecified fall, initial encounter - History of Present Illness Consult date: 06/19/18 Consult reason: Carotid artery stenosis Chief complaint: Patient fell yesterday History of present illness: Mr. Cruz is a 58 year old male Who states he was at a tavern drinking beer yesterday sitting on a stool when his right leg gave out and he fell onto the floor. He injured his right knee and back. He denies loss of consciousness or seizures. He has not had any previous symptoms of this nature. He denies any neurologic symptoms now or right lower extremity weakness. He has not had any previous strokes that he is aware of and there is no family history of strokes. The patient does have a history of tobacco abuse. He also has a history of alcohol abuse. The patient was originally taken to [facility] and then was transferred to [facility] for further evaluation as he did have an episode of hypotension. A number of examinations were performed including a carotid duplex scan, CT angiogram of the neck, CT scan of the brain, and MRI of the brain. I reviewed these images. They demonstrated an 80-99% left internal carotid artery stenosis. CTA shows a 95 or greater percent stenosis of the proximal left internal carotid artery. MRI demonstrates multiple previous old strokes. The patient lives with his mother in [place]. The mother has power of ip technology transactions attorney for financial and medical affairs. The patient is no longer employed and is on disability due to spine issues. Past Med Surg Social Fam HX - Past Medical History Medical history: arthritis, COPD, hypertension Psychiatric history: anxiety, depression - Past Surgical History Surgical History: hip replacement, knee replacement, orthopedic, other Additional surgical history: back surgery, colonoscopy - Social History Smoking Status: Current some day smoker Packs per day: .5 Smokeless Tobacco Status: No Alcohol use: occasionally Drug use: none - Family History Mother Living Status: Still Living Hx Family Cardiac Disorders: Yes (HTN) Father History Unknown: Yes Living Status: Medications and Allergies Aspirin [Lo-Dose Aspirin EC] 81 mg PO DAILY 01/30/18 [History] Lisinopril-HCTZ 10-12.5 [Prinzide 10-12.5] 1 each PO DAILY 01/30/18 [History] Trazodone HCl 300 mg PO HS PRN 01/30/18 [History] Fluticasone Propionate Nasal [Flonase] 2 spr NS DAILY 06/19/18 [History] Mesalamine [Lialda] 1.2 gm PO Q8H 06/19/18 [History] Sertraline [Zoloft] 100 mg PO DAILY 06/19/18 [History] 3 Allergy/AdvReac Type Severity Reaction Status Date / Time No Known Allergies Allergy Verified 07/09/17 14:07 All Systems Review: The remainder of the systems were reviewed and are negative Exam Vital Signs, Last 4 Hours Temp Pulse Resp BP Pulse Ox 06/19/18 16:20 97.7 F 71 18 105/72 98 General: Present: Conversant, No Apparent Distress, Well developed, Well nourished HEENT: Present: Atraumatic, Normocephaly, Trachea midline Neck: Absent: JVD, Left Carotid bruit, Right Carotid bruit, Midline deformity, Tracheal deviation Cardiac: Present: Reg Rate and Rhythm, Normal S1 and S2, No Murmur Lungs: Present: Normal Breath Sounds, No Wheeze, Rales, Rhonchi Neuro: Present: Alert and responsive, No focal deficits noted, Cranial nerves grossly intact Abdomen: Present: Soft, Non-tender, Other (No abdominal bruits. Patient has a tattoo across the epigastrium) Skin: Present: No rashes noted on visualized skin Consult Discharge Plan - Plan Referrals: Naoim Lay, PETROGRAPHER [Primary Care Provider] - (Your appointment has been webrequested. Our offices will contact you with an appointment time and date. If you do not hear from us, feel free to call and schedule an appointment.)
--- NOTE | 2018-06-20 01:18 | Anesthesia Evaluation PreOp ---
<Julissa Burgos - Last Filed: 06/20/18 01:16> Date of Encounter: 06/20/18 Time of Encounter: 01:16 - Past History Planned Operation: L-CEA Cardiac History: HTN, Other (CAD) Pulmonary History: Former smoker (quit 09/2016), Smoker (<1ppd), COPD ROLL CONTOUR GRINDER History: Syncope (evaluated for TIA/CVA after sustaining fall while drinking EtOH at bar), Other (Anxiety/Depression) Anesthesia History: Past Anesthesia (Hip replacement, Knee replacement,) Alcohol Use: occasionally Drug use: none Medications and Allergies Aspirin [Lo-Dose Aspirin EC] 81 mg PO DAILY 01/30/18 [History] Lisinopril-HCTZ 10-12.5 [Prinzide 10-12.5] 1 each PO DAILY 01/30/18 [History] Trazodone HCl 300 mg PO HS PRN 01/30/18 [History] Fluticasone Propionate Nasal [Flonase] 2 spr NS DAILY 06/19/18 [History] Mesalamine [Lialda] 1.2 gm PO Q8H 06/19/18 [History] Sertraline [Zoloft] 100 mg PO DAILY 06/19/18 [History] 3 Allergy/AdvReac Type Severity Reaction Status Date / Time No Known Allergies Allergy Verified 07/09/17 14:07 - Meds/Allergy Pre-op Review Medications Reviewed: Yes Allergies Reviewed: Yes Beta Blockers on Current Med List: No Anesthesia Results - Labs 06/19/18 03:44 06/19/18 03:44 Laboratory Results Impressions ADDENDUM: 06/19/18 1804 Impressions: LVEF 60-65%. Normal LV chamber size, wall thickness and function. Normal left ventricular diastolic function. Normal right ventricular structure and function. No evidence of PFO by color Doppler. No significant valvular dysfunction. Unable to estimate RVSP due to lack of TR jet. Left Ventricular Wall Motion: Rest Echo Findings All wall segments showed normal motion. Brain MRI 06/19/18 08:38 IMPRESSION: Multiple old infarcts with associated gliosis Patchy small vessel ischemic changes bilaterally No acute infarct. D/ / Abhi Gaytan / Abhi Gaytan Interpreting Provider: Abhi Gaytan Neck CTA 06/19/18 10:23 IMPRESSION: Critical stenosis at the proximal aspect of the left internal carotid artery (95% stenosis) secondary to heavy soft plaques. The remainder of the major arteries of the neck are within normal limits. D/ / Rubens Mcqueen MD / Rubens Mcqueen MD Interpreting Provider: Rubens Mcqueen MD Anesthesia Exam Vital Signs Temp Pulse Pulse Pulse Pulse Resp BP 06/19/18 22:55 97.9 F 47 16 92/60 06/19/18 18:55 98.5 F 71 17 108/73 06/19/18 16:20 97.7 F 71 18 105/72 06/19/18 11:02 18 06/19/18 10:22 98.1 F 73 73 74 89 18 107/70 06/19/18 07:04 98.6 F 70 18 108/70 06/19/18 03:47 98.1 F 71 16 116/76 BP BP BP Pulse Ox 06/19/18 22:55 95 06/19/18 18:55 97 06/19/18 16:20 98 06/19/18 11:02 100 06/19/18 10:22 107/70 104/49 106/78 97 06/19/18 07:04 98 06/19/18 03:47 99 Height: 6' Weight: 219# BMI = 27 NPO (# of Hours): MNoc - HEENT Pupil (Motor): Pupils equal, EOMI Mallampati: II Teeth: Normal Oral Opening: Greater than 3 - ROLL CONTOUR GRINDER LOC: Oriented ROLL CONTOUR GRINDER Motor: Normal RUE, Normal LUE, Normal RLE, Normal LLE, Normal Face - Cardiac Rhythm: Regular Murmur: None - Pulmonary Breath Sounds: bilateral Clear Respiratory Effort: Symmetrical Anesthesia Assess/Plan ASA Score: 3 Modified [place] Scale for Level of Consciousness: Cooperative, oriented, and tranquil Anesthetic Plan: General Monitoring Plan: Standard Monitors Recovery Plan: PACU <Curt Cloud - Last Filed: 06/20/18 15:30> Date of Encounter: 06/20/18 - Past History Cardiac History: HTN, Other Pulmonary History: Former smoker, Smoker, COPD ROLL CONTOUR GRINDER History: Syncope, Other Other Medical History: Denies Any Significant HX Anesthesia History: Past Anesthesia Alcohol Use: occasionally Drug use: none - Meds/Allergy Pre-op Review Medications Reviewed: Yes Allergies Reviewed: Yes Beta Blockers on Current Med List: No Anesthesia Results - Labs 06/20/18 03:17 06/20/18 03:17 - Imaging EKG: report reviewed (SR) Anesthesia Exam - HEENT Pupil (Motor): Pupils equal, EOMI Mallampati: II Teeth: Normal Oral Opening: Less than or equal to 3 - ROLL CONTOUR GRINDER LOC: Oriented ROLL CONTOUR GRINDER Motor: Normal RUE, Normal LUE, Normal RLE, Normal LLE, Normal Face ROLL CONTOUR GRINDER Sensory: Normal: RUE, LUE, RLE, LLE, Face - Cardiac Rhythm: Regular Murmur: None JVD: No Carotid Bruit: No - Pulmonary Breath Sounds: bilateral Clear Respiratory Effort: Symmetrical Anesthesia Assess/Plan ASA Score: 3 Modified [place] Scale for Level of Consciousness: Cooperative, oriented, and tranquil Anesthetic Plan: General Monitoring Plan: Standard Monitors, A-Line Recovery Plan: PACU (Discussed GA, A-line, agrees to proceed)
[2018-06-20 04:26] LABS: Basophils # 0.1 K/mcL (0.0-0.2); Basophils % 0.5 %; Eosinophils # 0.4 K/mcL (0.0-0.6); Eosinophils % 3.2 %; Hemoglobin 13.6 g/dL (12.9-16.9); Immature Granulocytes % 0.4 % (0-4); Lymphocytes # 3.8 K/mcL (0.6-4.6); Lymphocytes % 32.9 %; Mean Corpuscular HGB Conc 33.2 g/dL (31.6-35.5); Mean Corpuscular Hemoglobin 29.6 pg (28.0-33.3); Mean Corpuscular Volume 89.1 fL (83.0-100.0); Mean Platelet Volume 10.1 fL (9.4-12.4); Monocytes # 0.6 K/mcL (0.0-1.3); Monocytes % 5.4 %; Neutrophils # 6.6 K/mcL (1.6-8.9); Platelet Count 250 K/mcL (140-400); Red Cell Distribution Width 14.5 % (11.5-14.5); Segmented Neutrophils % 57.6 %
[2018-06-20 04:47] LABS: BUN/Creatinine Ratio 14 (6-26); Blood Urea Nitrogen 9 mg/dL (8-23); Calcium 9.2 mg/dL (8.6-10.3); Carbon Dioxide 26 mEq/L (23-29); Chloride 106 mEq/L (98-107); Glucose 99 mg/dL (70-105); Osmolality,Calculated 283 (280-300); Potassium 3.9 mEq/L (3.5-5.1); Sodium 137 mEq/L (136-145); eGFR For Non-African Americans > 60 (> 60)
[2018-06-20] MEDS: *HR* Heparin 5,000 UNIT/ML VIAL SQ SCH (05:56)
[2018-06-20] MEDS: Tiotropium 18 MCG inhalation IH SCH (08:24)
[2018-06-20] MEDS: Aspirin Enteric Coated 81 MG Tablet PO SCH (08:29)
[2018-06-20] MEDS ORDERED: traMADol 50 MG TABLET PO PRN ×2 (08:35→21:28)
--- NOTE | 2018-06-20 08:35 | Internal Med Progress Note ---
<IvettAriannaNilay Pj - Last Filed: 06/20/18 11:14> Hospitalist Progress Note - Encounter Date of Encounter: 06/20/18 Time of Encounter: 08:35 - Subjective Interval History: Patient reports doing well this morning. Discussed results of testing and answered all questions with patient this morning. Patient has some right knee pain and chronic low back pain this morning. Patient has no pain meds scheduled and reports being on tramadol at home prn. Patient denies symptoms overnight. Denies fevers, chills, sweats, nausea, vomiting, changes in vision or hearing, dizziness, lightheadedness, neck pain, chest pain, palpitations, shortness of breath, cough, abdominal pain, changes in bowels or bladder, weakness, loss of sensation, or rash. - Exam Vitals: Temp Pulse Resp BP Pulse Ox 97.9 F 55 17 113/76 98 06/20/18 07:58 06/20/18 07:58 06/20/18 07:58 06/20/18 07:58 06/20/18 07:58 Exam: General: Awake, alert and oriented x 4, no acute distress, answer questions appropriately HEENT: moist mucus membranes, EOMI, PERRLA, no carotid bruits Neck: no adenopathy CV: RRR, no murmurs, no carotid bruit Lungs: CTAB, no wheezes, rhonchi, or rales Abd: Soft, nontender, normal bowels sounds MSK: 5/5 strength bilaterally Ext: no edema, cyanosis, or clubbing, right knee pain Spine: mild low spinal tenderness Neuro: CN 2-12 grossly intact, no focal deficits, moves all extremities spontaneously, limited RLE due to pain, 5/5 strenght bilaterally, sensation intact. - Assessment and Plan (1) Pre-syncope Current Visit: Yes Status: Acute Assessment and Plan: Etiology unclear, but most likely related to hypotension of uncertain etiology. No loss of consciousness, no head injury. Bp has been stable since admission, Cardio evaluated patient and note reviewed. Troponin 0.03, 0.03, 0.03 Carotid duplex with critical Left proximal carotid disease CT angio Neck revealed 95% stenosis L ICA. EKG with normal sinus rhythm Echo completed: EF 60-65%, normal LV function and structure, normal RV function and structure, no PFO, no valvular dysfunction. Orthostatic vitals unremarkable UDS negative -Neurology on board -Continue monitoring vitals. -Fall precautions (2) Abnormal CT of the head Current Visit: Yes Status: Acute Assessment and Plan: CT Head revealed no acute intracranial hemorrhage, mild cerebral atrophy, and small focal area of cortical effacement in left lob posterior temporal lobe suggestive of possible acute infarct. Patient has otherwise not had any neurological deficits on history of clinically. Neurology reviewed images and findings likely artifact. Neurology note reviewed, will order MRI without contrast to confirm diagnosis as patient had hypotension, elevated WBC, and newly found left carotid arter stenosis. MRI Brain revealed multiple old infarcts withh associated gliosis, patchy small vessel ischemic changes, no acute infarct. -Due to hx of infarcts and carotid artery disease, will continue daily statin and aspirin. No need for DAPT as no acute infarct, not technically a TIA without neurological symptoms. -Neurology on board. (3) Hypotension Current Visit: No Status: Inactive Assessment and Plan: Upon EMS arrival, patient had bp in 60/40s, continued low bp in [facility] [facility] which responded to 2L normal saline. Bp otherwise continues to be stable during hospitalization and upon arrival. Echo as noted in assessment above. Cardio note reviewed, no additional workup. Continue to monitor. (4) Hypertension Current Visit: No Status: Chronic Assessment and Plan: Known history of htn on lisinopril-hctz at home for > 6 months without recent changes in dose. Holding home med at this time due to hypotensive on presentation to [facility] ED. However, bp stable on own without home bp med since admission. -Continue monitoring (5) Carotid stenosis, left Current Visit: Yes Status: Acute Assessment and Plan: Cartoid duplex: Left proximal ICA critical stenosis 80-99%, Right proximal ICA nonstenotic plaque. CT angio neck revealed 95% stenosis of Left ICA -Vascular on board, interventional surgery later today. -Continue with daily statin and aspirin. (6) CAD (coronary artery disease) Current Visit: No Status: Chronic Assessment and Plan: History of CAD per patient, cath revealed 50% blockages, no PCI or stents. (7) Leukocytosis Current Visit: Yes Status: Acute Assessment and Plan: Elevated WBCon admission. 17.8, 15.0, this morning 11.4. CXR unremarkable UA negative Patient otherwise asymptomatic. Likely reactive. Continue monitoring. (8) Right knee pain Current Visit: Yes Status: Acute Assessment and Plan: History of R knee arthroplasty and chronic back and knee pain. Acute on chronic R knee pain. XR knee without acute findings. -Continue home med, Tramadol q6h prn for pain. (9) DVT prophylaxis Current Visit: Yes Status: Acute Assessment and Plan: heparin sq DVT Prophylaxis: heparin sq - Time Spent with Patient Total time spent is greater than 50% in coordination of care (as documented) at patient's floor/unit and/or counseling patient: Internal Medicine: Result - Labs CBC & Chem 7: 06/20/18 03:17 06/20/18 03:17 Labs: Short CBC 06/20/18 Range/Units 03:17 WBC 11.4 H (4.3-11.1) K/mcL Hgb 13.6 (12.9-16.9) g/dL Hct 41.0 (37.5-50.1) % Plt Count 250 (140-400) K/mcL Neutrophils # 6.6 (1.6-8.9) K/mcL BMP 06/20/18 03:17 Sodium 137 Potassium 3.9 Chloride 106 Carbon Dioxide 26 BUN 9 Creatinine 0.66 L Glucose 99 Calcium 9.2 Cardiac Enzymes 06/19/18 Range/Units 09:51 Troponin I < 0.03 (< 0.04) ng/mL - Impressions Impressions Echocardiogram 06/19/18 02:43 Impressions: LVEF 60-65%. Normal LV chamber size, wall thickness and function. Normal left ventricular diastolic function. Normal right ventricular structure and function. No evidence of PFO by color Doppler. No significant valvular dysfunction. Unable to estimate RVSP due to lack of TR jet. Left Ventricular Wall Motion: Rest Echo Findings All wall segments showed normal motion. Findings: Study Quality * Technically adequate exam. ECG Findings * Normal sinus rhythm. Left Ventricle * LVEF 60-65%. * Normal LV chamber size, wall thickness and function. * Normal left ventricular diastolic function. Right Ventricle * Normal right ventricular structure and function. Left Atrium * Normal left atrial size. Right Atrium * Normal right atrial size. Interatrial Septum * No evidence of PFO by color Doppler. Aortic Valve * Trileaflet aortic valve. * Normal aortic valve structure. * No aortic regurgitation. * No aortic stenosis. Mitral Valve * Normal mitral valve structure. * No mitral regurgitation. * No mitral stenosis. Tricuspid Valve * Normal tricuspid valve structure. * No tricuspid regurgitation. * No tricuspid stenosis. * Unable to estimate RVSP due to lack of TR jet. Pulmonic Valve * Normal pulmonic valve structure. * No pulmonic regurgitation. Aorta * Normally sized aortic root. Pericardium * The pericardium appears normal. IVC * Normal IVC dimensions and inspiratory collapse. Pulmonary Artery * Normal visualized portions of the main pulmonary artery. ADDENDUM: 06/19/18 1804 Impressions: LVEF 60-65%. Normal LV chamber size, wall thickness and function. Normal left ventricular diastolic function. Normal right ventricular structure and function. No evidence of PFO by color Doppler. No significant valvular dysfunction. Unable to estimate RVSP due to lack of TR jet. Left Ventricular Wall Motion: Rest Echo Findings All wall segments showed normal motion. Findings: Study Quality * Technically adequate exam. ECG Findings * Normal sinus rhythm. Left Ventricle * LVEF 60-65%. * Normal LV chamber size, wall thickness and function. * Normal left ventricular diastolic function. Right Ventricle * Normal right ventricular structure and function. Left Atrium * Normal left atrial size. Right Atrium * Normal right atrial size. Interatrial Septum * No evidence of PFO by color Doppler. Aortic Valve * Trileaflet aortic valve. * Normal aortic valve structure. * No aortic regurgitation. * No aortic stenosis. Mitral Valve * Normal mitral valve structure. * No mitral regurgitation. * No mitral stenosis. Tricuspid Valve * Normal tricuspid valve structure. * No tricuspid regurgitation. * No tricuspid stenosis. * Unable to estimate RVSP due to lack of TR jet. Pulmonic Valve * Normal pulmonic valve structure. * No pulmonic regurgitation. Aorta * Normally sized aortic root. Pericardium * The pericardium appears normal. IVC * Normal IVC dimensions and inspiratory collapse. Pulmonary Artery * Normal visualized portions of the main pulmonary artery. Brain MRI 06/19/18 08:38 IMPRESSION: Multiple old infarcts with associated gliosis Patchy small vessel ischemic changes bilaterally No acute infarct. D/ / Abhi Gaytan / Abhi Gaytan Interpreting Provider: Abhi Gaytan Neck CTA 06/19/18 10:23 IMPRESSION: Critical stenosis at the proximal aspect of the left internal carotid artery (95% stenosis) secondary to heavy soft plaques. The remainder of the major arteries of the neck are within normal limits. D/ / Rubens Mcqueen MD / Rubens Mcqueen MD Interpreting Provider: Rubens Mcqueen MD Consult Discharge Plan - Plan Referrals: Naomi Lay CNP [Primary Care Provider] - 06/25/18 3:00 pm () Blane Garrido MD [Partnered Physician] - 07/07/18 10:30 am (This appointment is in [facility]) <Alla Haley - Last Filed: 06/20/18 14:15> Hospitalist Progress Note - Encounter Date of Encounter: 06/20/18 - Exam Vitals: Temp Pulse Resp BP Pulse Ox 98.5 F 58 14 122/82 98 06/20/18 11:58 06/20/18 11:58 06/20/18 11:58 06/20/18 11:58 06/20/18 11:58 - Assessment and Plan (1) Hypotension Current Visit: No Status: Inactive (2) Episode of syncope Current Visit: Yes Status: Acute (3) TIA (transient ischemic attack) Current Visit: Yes Status: Suspected (4) Hypertension Current Visit: No Status: Chronic (5) COPD (chronic obstructive pulmonary disease) Current Visit: Yes Status: Chronic (6) CAD (coronary artery disease) Current Visit: No Status: Chronic (7) DVT prophylaxis Current Visit: Yes Status: Acute (8) Leukocytosis Current Visit: Yes Status: Acute - Time Spent with Patient Total time spent is greater than 50% in coordination of care (as documented) at patient's floor/unit and/or counseling patient: Internal Medicine: Result - Labs CBC & Chem 7: 06/20/18 03:17 06/20/18 03:17 Labs: Short CBC 06/20/18 Range/Units 03:17 WBC 11.4 H (4.3-11.1) K/mcL Hgb 13.6 (12.9-16.9) g/dL Hct 41.0 (37.5-50.1) % Plt Count 250 (140-400) K/mcL Neutrophils # 6.6 (1.6-8.9) K/mcL BMP 06/20/18 03:17 Sodium 137 Potassium 3.9 Chloride 106 Carbon Dioxide 26 BUN 9 Creatinine 0.66 L Glucose 99 Calcium 9.2 - Impressions Impressions Echocardiogram 06/19/18 02:43 Impressions: LVEF 60-65%. Normal LV chamber size, wall thickness and function. Normal left ventricular diastolic function. Normal right ventricular structure and function. No evidence of PFO by color Doppler. No significant valvular dysfunction. Unable to estimate RVSP due to lack of TR jet. Left Ventricular Wall Motion: Rest Echo Findings All wall segments showed normal motion. Findings: Study Quality * Technically adequate exam. ECG Findings * Normal sinus rhythm. Left Ventricle * LVEF 60-65%. * Normal LV chamber size, wall thickness and function. * Normal left ventricular diastolic function. Right Ventricle * Normal right ventricular structure and function. Left Atrium * Normal left atrial size. Right Atrium * Normal right atrial size. Interatrial Septum * No evidence of PFO by color Doppler. Aortic Valve * Trileaflet aortic valve. * Normal aortic valve structure. * No aortic regurgitation. * No aortic stenosis. Mitral Valve * Normal mitral valve structure. * No mitral regurgitation. * No mitral stenosis. Tricuspid Valve * Normal tricuspid valve structure. * No tricuspid regurgitation. * No tricuspid stenosis. * Unable to estimate RVSP due to lack of TR jet. Pulmonic Valve * Normal pulmonic valve structure. * No pulmonic regurgitation. Aorta * Normally sized aortic root. Pericardium * The pericardium appears normal. IVC * Normal IVC dimensions and inspiratory collapse. Pulmonary Artery * Normal visualized portions of the main pulmonary artery. ADDENDUM: 06/19/18 1804 Impressions: LVEF 60-65%. Normal LV chamber size, wall thickness and function. Normal left ventricular diastolic function. Normal right ventricular structure and function. No evidence of PFO by color Doppler. No significant valvular dysfunction. Unable to estimate RVSP due to lack of TR jet. Left Ventricular Wall Motion: Rest Echo Findings All wall segments showed normal motion. Findings: Study Quality * Technically adequate exam. ECG Findings * Normal sinus rhythm. Left Ventricle * LVEF 60-65%. * Normal LV chamber size, wall thickness and function. * Normal left ventricular diastolic function. Right Ventricle * Normal right ventricular structure and function. Left Atrium * Normal left atrial size. Right Atrium * Normal right atrial size. Interatrial Septum * No evidence of PFO by color Doppler. Aortic Valve * Trileaflet aortic valve. * Normal aortic valve structure. * No aortic regurgitation. * No aortic stenosis. Mitral Valve * Normal mitral valve structure. * No mitral regurgitation. * No mitral stenosis. Tricuspid Valve * Normal tricuspid valve structure. * No tricuspid regurgitation. * No tricuspid stenosis. * Unable to estimate RVSP due to lack of TR jet. Pulmonic Valve * Normal pulmonic valve structure. * No pulmonic regurgitation. Aorta * Normally sized aortic root. Pericardium * The pericardium appears normal. IVC * Normal IVC dimensions and inspiratory collapse. Pulmonary Artery * Normal visualized portions of the main pulmonary artery. Brain MRI 06/19/18 08:38 IMPRESSION: Multiple old infarcts with associated gliosis Patchy small vessel ischemic changes bilaterally No acute infarct. D/ / Abhi Gaytan / Abhi Gaytan Interpreting Provider: Abhi Gaytan - Attending Attestation I have seen and examined this pt independently. I have discussed with resident physician Dr Root regarding the management plan. Agree with the documentation. <Nilay Root - Last Filed: 06/20/18 11:14> (3) Hypotension Qualifiers: Hypotension type: unspecified hypotension type Qualified Code(s): I95.9 - Hypotension, unspecified (4) Hypertension Qualifiers: Hypertension type: essential hypertension Qualified Code(s): I10 - Essential (primary) hypertension (6) CAD (coronary artery disease) Qualifiers: Coronary Disease-Associated Artery/Lesion type: unspecified vessel or lesion type [place] vs. transplanted heart: [place] heart Associated angina: angina presence unspecified Qualified Code(s): I25.10 - Atherosclerotic heart disease of [place] coronary artery without angina pectoris (7) Leukocytosis Qualifiers: Leukocytosis type: unspecified Qualified Code(s): D72.829 - Elevated white blood cell count, unspecified (8) Right knee pain Qualifiers: Chronicity: chronic Qualified Code(s): M25.561 - Pain in right knee; G89.29 - Other chronic pain <Alla Haley - Last Filed: 06/20/18 14:15> (1) Hypotension Qualifiers: Hypotension type: unspecified hypotension type Qualified Code(s): I95.9 - Hypotension, unspecified (2) Episode of syncope Qualifiers: Syncope type: unspecified Qualified Code(s): R55 - Syncope and collapse (4) Hypertension Qualifiers: Hypertension type: essential hypertension Qualified Code(s): I10 - Essential (primary) hypertension (5) COPD (chronic obstructive pulmonary disease) Qualifiers: COPD type: unspecified COPD Qualified Code(s): J44.9 - Chronic obstructive pulmonary disease, unspecified (6) CAD (coronary artery disease) Qualifiers: Coronary Disease-Associated Artery/Lesion type: unspecified vessel or lesion type [place] vs. transplanted heart: [place] heart Associated angina: angina presence unspecified Qualified Code(s): I25.10 - Atherosclerotic heart disease of [place] coronary artery without angina pectoris (8) Leukocytosis Qualifiers: Leukocytosis type: unspecified Qualified Code(s): D72.829 - Elevated white blood cell count, unspecified
--- NOTE | 2018-06-20 12:42 | Neurology Progress Note ---
Date of Encounter: 06/20/18 Time of Encounter: 12:40 Assessment and Plan (1) Abnormal CT of the head Current Visit: Yes Status: Acute This turned out to be artefactual as MRI of brain showed no evidence of acute infarct. The fall and weakness likely related to hypotension and his neurological status is intact. He was found to have critical left ICA stenosis and i agree with surgical intervention in the form of carotid endarterectomy recommended by vascular surgery. Will sign off at this time. Please call if any questions Subjective Principal diagnosis: Abnormal CT of head, carotid artery stenosis Interval history: Patient seen and examined. He feels fine and denies significant discomforts. MRI of brain as expected showed no acute intracranial abnormality. However, CT angio of neck showed 90% ICA stenosis on the left side. Vascular surgery is recommending carotid endarterectomy. I agree with the plan Objective - Constitutional Vitals: Temp Pulse Resp BP Pulse Ox 98.5 F 58 14 122/82 98 06/20/18 11:58 06/20/18 11:58 06/20/18 11:58 06/20/18 11:58 06/20/18 11:58 - Neurological Exam Sensorimotor examination: Present: intact Motor Examination: Present: full strength in all major muscle groups Motor examination - right side: 5/5: deltoids, biceps, triceps, wrist flexion, wrist extension, ramp agent, hip flexors, tibialis Anterior, quadriceps, toe extension (EHL), plantarflexion Motor examination - left side: 5/5: deltoids, biceps, triceps, wrist flexion, wrist extension, hip flexors, ramp agent, quadriceps, tibialis Anterior, toe extension (EHL), plantarflexion Sensation intact: Present: intact Posture: Present: other (N[place]) Reflex and gait examination: intact Reflexes: Biceps: 2+, Triceps: 2+, Brachioradialis: 2+, Patella: 2+, Achilles: 2 + Mental Status Examination: Present: awake, alert, oriented to person, oriented to place, oriented to time, follows commands appropriately, answers questions appropriately, no agnosia, no aphasia, no aproxia Cranial nerve examination: Present: PERRL, EOMI, visual dover intact, corneal reflexes brisk symmetrically, sensory to face intact, mastication intact, no facial asymmetry is present, no dysarthria, hearing is intact symmetrically, soft palate elevates bilaterally upon phonation, gag reflex intact, flexes SCM and trapezius muscles symmetrically with full power, tongue protrudes midline, no atrophy or facial fasiculations present Cerebellar examination: Present: no dysmetria, performs finger to nose and heel to allen symmetrically without ataxia, no gait ataxia, no truncal ataxia, no difficulty with rapid alternating movements Results - Laboratory Findings CBC and BMP: 06/20/18 03:17 06/20/18 03:17 Abnormal lab findings: Abnormal lab results WBC 11.4 K/mcL (4.3-11.1) H 06/20/18 03:17 Creatinine 0.66 mg/dL (0.70-1.30) L 06/20/18 03:17 Serum Total Protein 5.4 g/dL (6.4-8.9) L 06/19/18 03:44 Globulin 1.7 g/dL (2.4-3.5) L 06/19/18 03:44 Consult Discharge Plan - Plan Referrals: Naomi Lay CNP [Primary Care Provider] - 06/25/18 3:00 pm () Blane Garrido MD [Partnered Physician] - 07/07/18 10:30 am (This appointment is in [place])
[2018-06-20] MEDS ORDERED: Heparin 1,000 UNITS/500 mL 500 ML ONE (14:42)
[2018-06-20] MEDS ORDERED: Albuterol 2.5 MG/3 ML NEBULIZER IH ONE (15:25)
[2018-06-20] MEDS ORDERED: Ringers Solution, Lactated 1,000 ML IVC SCH (15:30)
[2018-06-20] MEDS ORDERED: Acetaminophen IV 1,000 MG/100 ML INFUS..BTL ONE ×2 (15:37→16:02)
[2018-06-20] MEDS ORDERED: Famotidine 20 MG/2 ML VIAL ONE (15:37)
[2018-06-20] MEDS ORDERED: *HR* Propofol 200 MG/20 ML VIAL IVP ONE (15:47)
[2018-06-20] MEDS ORDERED: *HR* Remifentanil 1 MG VIAL IVP ONE ×2 (15:47→15:48)
[2018-06-20] MEDS ORDERED: *HR* FentaNYL (PF) 100 MCG/2 ML VIAL ONE (15:47)
[2018-06-20] MEDS ORDERED: *HR* Succinylcholine 200 MG/10 ML VIAL IVP ONE (15:50)
[2018-06-20] MEDS ORDERED: *HR* Rocuronium Bromide 50 MG/5 ML VIAL ONE (15:50)
[2018-06-20] MEDS ORDERED: Lidocaine -MPF 4% 5 ML AMPUL ONE (15:50)
[2018-06-20] MEDS ORDERED: Lidocaine -MPF 2% 2 ML VIAL ONE ×2 (15:50→16:00)
[2018-06-20] MEDS ORDERED: *HR* Midazolam HCl 2 MG/2 ML VIAL ONE (15:56)
[2018-06-20] MEDS ORDERED: Heparin 1,000 UNITS/500 mL 1,000 ML ONE (16:02)
[2018-06-20] MEDS ORDERED: Ondansetron 4 MG/2 ML VIAL ONE (16:41)
[2018-06-20] MEDS ORDERED: Dexamethasone 4 MG/ML VIAL ONE (16:41)
--- NOTE | 2018-06-20 16:50 | Operative Note ---
Date of procedure: 06/20/18 Pre-op diagnosis: carotid stenosis-left Procedure: left carotid endarterectomy with 8Fr shunt and bovine patch angioplasty Anesthesia: GETA Surgeon: Blane Garrido Was there an assistant designer present: No Estimated blood loss (cc): 250 Specimen: 0 Condition: stable Disposition: PACU
[2018-06-20] MEDS ORDERED: *HR* Phenylephrine 10 MG/ML VIAL ONE (16:53)
[2018-06-20] MEDS ORDERED: *HR* HYDROmorphone (PF) 1 MG/ML SYRINGE IVP PRN (17:18)
[2018-06-20] MEDS ORDERED: *HR* OxyCODONE Immed Rel 5 MG TABLET PO PRN (17:18)
[2018-06-20] MEDS ORDERED: *HR* Promethazine 25 MG/ML VIAL IVP PRN (17:18)
[2018-06-20] MEDS ORDERED: ceFAZolin 2,000 MG in Water for inj. (sterile) 20 ML 10 ML IVP ONE (17:20)
[2018-06-20] MEDS ORDERED: CeFAZolin Syr 2,000MG/20 ML 2,000 MG/20 ML SYRINGE IVPB ONE (17:45)
--- NOTE | 2018-06-20 19:17 | Anesthesia Procedures ---
Date of Encounter: 06/20/18 Time of Encounter: 16:00 Procedures: Anesthesia - Arterial Line Consent obtained: written consent Time out performed: Yes Sedation: Versed (mg): 2 Supplemental Oxygen via Nasal Cannula (L/min): 2 Local Anesthetic: Lidocaine 1% Size (Gauge): 20 Length (inches): 1 3/4 Technique Used: sterile prep, guide wire technique, direct puncture technique Post-Procedure: line taped into place Patient tolerated procedure: no complications Complications: none Site: Radial R
[2018-06-20] MEDS ORDERED: Bupivacaine-MPF 0.25% 10 ML VIAL ONE (19:33)
[2018-06-20] MEDS ORDERED: Neostigmine Methylsulfate 3 MG/3 ML SYRINGE ONE (20:00)
[2018-06-20] MEDS: *HR* Labetalol 20 MG/4 ML SYRINGE IVP PRN ×2 (20:24→20:41)
--- NOTE | 2018-06-20 20:46 | Operative Note ---
Date of procedure: 06/20/18 Pre-op diagnosis: Left carotid stenosis with history of old strokes Post-op diagnosis: same Procedure: Left carotid endarterectomy with 8 [place] shunt and bovine patch angioplasty Complications: None Anesthesia: GETA Surgeon: Blane Garrido Was there an molding line assistant present: No Estimated blood loss (cc): 250 Specimen: None Condition: stable Disposition: PACU Procedure in Detail: History Jose Cruz is a 58-year-old white female who was admitted via the emergency room because of a neurologic event. Workup ensued that included a CT angiogram of the neck as well as ultrasound. These tests demonstrated a high- grade lesion of greater than 95% of the left internal carotid artery. MRI demonstrated old strokes. Patient was recommended to undergo urgent surgery now comes to the operating room. Procedure After informed consent was obtained the patient was taken the operating room. General endotracheal anesthesia was established under arterial line pressure monitoring. The left neck was sterilely prepped and draped. A timeout protocol was observed. An oblique incision was made parallel to the anterior border of the sternocleidomastoid muscle. Dissection was carried down to reveal the carotid sheath. Upon dissection of the carotid artery there was marked inflammation surrounding the internal carotid artery and bulbar area. This led to a more tedious and meticulous dissection. Also the bifurcation was high in the neck limiting distal exposure. The nervous structures were identified and preserved. Control was ultimately obtained. 5000 units of heparin were administered intravenously. After 3 minutes later the vessels were clamped with heel internal carotid artery clamped first. Using an 11 blade knife and Levine scissors the artery was opened. An 8 [place] shunt was inserted atraumatically. Patency of the shunt was confirmed by the use of intraoperative Doppler. Evaluation of the plaque revealed a very critical and heterogeneous plaque in the proximal aspect of the internal carotid artery. The degree of stenosis was greater than 95%. The endarterectomy was then begun at the distal common carotid artery. After a dissection plane was established the plaque was divided. The external carotid and superior thyroid artery were endarterectomized. The endpoint on the internal carotid artery was smooth. No tacking sutures were necessary though the plaque did extend high into the neck. The bed of the vessels and inspected for any residual debris. A bovine pericardial patch was then sewn into position using 2 6-0 Prolene sutures. Leaving a small space open on the suture line the shunt was clamped divided and removed. The final few sutures were placed. The internal was allowed to back flushed and reclamped. Then the external and common were opened and then finally the internal was reopened. The patient tolerated this well and had no hemodynamic distress. The wound was then irrigated and hemostasis achieved. A superficial cervical block using quarter percent Marcaine was performed. The wound was then closed in layers using absorbable suture. A dry sterile dressing was applied. No drains were placed. There were no intraoperative complications. The patient awoke from anesthesia and was neurologically intact. He was then transported from the operating room to the recovery room in stable condition.
[2018-06-20] MEDS ORDERED: Albuterol 2.5 MG/3 ML NEBULIZER IH PRN (21:28)
[2018-06-20] MEDS ORDERED: *HR* Labetalol 20 MG/4 ML SYRINGE IVP PRN (21:28)
[2018-06-20] MEDS ORDERED: Naloxone 0.4 MG/ML INJ IVP PRN ×3 (21:28)
[2018-06-20] MEDS ORDERED: Ondansetron 4 MG/2 ML VIAL IVP PRN (21:28)
[2018-06-20] MEDS: traZODone 50 MG TABLET PO PRN (22:12)
[2018-06-20] MEDS: Ringers Solution, Lactated 1,000 ML IVC SCH (22:18)
[2018-06-20] MEDS ORDERED: Acetaminophen 325 MG TABLET PO PRN (23:08)
[2018-06-20] MEDS: *HR* OxyCODONE Immed Rel 5 MG TABLET PO PRN (23:22)
--- NOTE | 2018-06-20 23:33 | Anesthesia Evaluation Post Op ---
Date of Encounter: 06/20/18 Time of Encounter: 21:00 - Vital Signs Vital Signs: Vital Signs Temp Pulse Resp BP Pulse Ox 06/20/18 20:53 98.2 F 60 14 157/96 99 06/20/18 20:43 98.2 F 63 12 162/100 99 06/20/18 20:33 61 12 165/97 99 06/20/18 20:23 63 14 159/105 100 06/20/18 20:13 99 F 80 16 173/108 100 06/20/18 11:58 98.5 F 58 14 122/82 98 06/20/18 08:24 16 97 06/20/18 07:58 97.9 F 55 17 113/76 98 06/20/18 05:04 97.8 F 55 17 110/74 97 06/20/18 02:52 98.1 F 54 18 102/70 98 Intake and Output Patient Weight 06/20/18 23:59 Weight 87.2 kg - Lungs Lungs: Clear Ascult./Percussion - Airway Airway: Non-obstructed - Cardiovascular Regular Rate - Mental Status Mental Status: Alert & Oriented, Answers Appropriately - Pain Pain Scale: 0 Pain Scale used: Numeric (1 - 10) - Nausea Vomiting Nausea Vomiting: Not Present - Hydration Hydration: Ice chips, Rosales catheter - Discharge PostOp Status: Transfer Patient to floor Anes Supervising Prov Stmt: Pt seen/evaluated, VSS and has met criteria for discharge to floor. - MD Nereyda
[2018-06-21 05:03] LABS: Basophils % 0.1 %; Eosinophils % 0.1 %; Hematocrit 36.4 % (37.5-50.1); Hemoglobin 12.4 g/dL (12.9-16.9); Immature Granulocytes % 0.5 % (0-4); Lymphocytes # 1.3 K/mcL (0.6-4.6); Lymphocytes % 8.7 %; Mean Corpuscular HGB Conc 34.1 g/dL (31.6-35.5); Mean Corpuscular Hemoglobin 29.7 pg (28.0-33.3); Mean Corpuscular Volume 87.3 fL (83.0-100.0); Mean Platelet Volume 9.6 fL (9.4-12.4); Monocytes # 0.5 K/mcL (0.0-1.3); Neutrophils # 13.2 K/mcL (1.6-8.9); Platelet Count 246 K/mcL (140-400); Red Blood Count 4.17 M/mcL (4.19-5.50); Red Cell Distribution Width 14.3 % (11.5-14.5); Segmented Neutrophils % 87.6 %
[2018-06-21 05:26] LABS: BUN/Creatinine Ratio 13 (6-26); Blood Urea Nitrogen 9 mg/dL (8-23); Calcium 8.9 mg/dL (8.6-10.3); Carbon Dioxide 24 mEq/L (23-29); Chloride 106 mEq/L (98-107); Glucose 124 mg/dL (70-105); Osmolality,Calculated 284 (280-300); Potassium 4.2 mEq/L (3.5-5.1); Sodium 137 mEq/L (136-145); eGFR For Non-African Americans > 60 (> 60)
[2018-06-21] MEDS: *HR* Heparin 5,000 UNIT/ML VIAL SQ SCH ×2 (06:01→15:55)
--- NOTE | 2018-06-21 07:19 | Discharge Summary ---
<Nilay Root - Last Filed: 06/23/18 16:33> - NOTES TO OUTPATIENT PROVIDER Notes to Outpatient Provider: Patient is a 58 year old male who presented via transfer from [place] [facility] after falling off a bar stool prior to arrival and determined to have bp in 60/40s and abnormal CT Head concerning for possible infarct. Bp responded well to fluids and patient's bp has been stable throughout admission, but has been off of his home lisinopril-hctz. Echo normal. CT Head with small focal area of cortical effacement in left lobe posterior temporal lobe concerning for infarct. Orthostatics normal. 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 U/s and neck CT angio revealed critical stenosis of L ICA and therefore patient underwent L endarterectomy 06/20/18. Due to patient's hx of infarcts, patient discharged with daily lipitor and to continue daily asa. Follow up with PCP in 3-5 days. Orders not resulted at time of discharge: Pending orders 06/19/18 03:29 EKG [ECG 12 lead ECG] [ECG] Routine Date of Encounter: 06/23/18 Time of Encounter: 07:19 - Discharge Diagnosis (1) Pre-syncope Priority: Primary Status: Acute (2) Abnormal CT of the head Priority: Primary Status: Acute (3) Hypertension Priority: Secondary Status: Chronic Qualifiers: Hypertension type: essential hypertension Qualified Code(s): I10 - Essential (primary) hypertension (4) Carotid stenosis, left Priority: Primary Status: Chronic (5) CAD (coronary artery disease) Priority: Secondary Status: Chronic Qualifiers: Coronary Disease-Associated Artery/Lesion type: unspecified vessel or lesion type [place] vs. transplanted heart: [place] heart Associated angina: angina presence unspecified Qualified Code(s): I25.10 - Atherosclerotic heart disease of [place] coronary artery without angina pectoris (6) Leukocytosis Priority: Primary Status: Acute Qualifiers: Leukocytosis type: unspecified Qualified Code(s): D72.829 - Elevated white blood cell count, unspecified (7) Right knee pain Priority: Secondary Status: Acute Qualifiers: Chronicity: chronic Qualified Code(s): M25.561 - Pain in right knee; G89.29 - Other chronic pain Hospital course: Mr. Cruz is a 58 year old male with history of CAD, htn, COPD, and arthritis who presented to [place] ED on 06/19/18 via EMS after falling off a bar stool while drinking. [facility] arrival patient was noted to be hypotensive at 62/43 which responded to fluids. Patient did not lose consciousness and had no additional symptoms. CT Head was completed and revealed no acute intracranial hemorrhage, mild cerebral atrophy, and small focal area of cortical effacement in left lobe posterior temporal lobe concerning for possible infarct. UDS negative. Labs with elevated WBC at 17.8. CXR negative. Troponin negative and EKG nsr. U/S neck revealed a critical stenosis of L ICA and CT angio neck confirmed. MRI revealed no acute infarct, multiple old infarcts. Neuro evaluated and Cardio evaluated. Vascular consuled. Echo normal. Patient underwent L carotid endarterectomy successfully. Patient had normal vitals during hospitalization, no additional hypotensive episodes. Discharged with daily 80mg atorvastatin given history of multiple old infarcts, continue aspirin, and discontinued lisinopril- hctz as patient's bp was well controlled off medication during hospitalization. Discharge home, PCP follow up in 3-5 days. Denies fevers, chills, sweats, headache, changs in vision or hearing, nausea, vomiting, chest pain, shortness of breath, abdominal pain, changes in bowels or bladder, weakness, loss of sensation, or rash. Discharge discussed with: patient - Time Spent with Patient Total time spent providing and/or coordinating discharge services: - Discharge Medications Prescriptions: Atorvastatin [Lipitor] 80 mg PO HS #30 tablet Home Medications: Aspirin [Lo-Dose Aspirin EC] 81 mg PO DAILY 01/30/18 [History] Trazodone HCl 300 mg PO HS PRN 01/30/18 [History] Fluticasone Propionate Nasal [Flonase] 2 spr NS DAILY 06/19/18 [History] Mesalamine [Lialda] 1.2 gm PO Q8H 06/19/18 [History] Sertraline [Zoloft] 100 mg PO DAILY 06/19/18 [History] Atorvastatin [Lipitor] 80 mg PO HS #30 tablet 06/21/18 [Rx] Allergies/Adverse Reactions: 3 Allergy/AdvReac Type Severity Reaction Status Date / Time No Known Allergies Allergy Verified 07/09/17 14:07 Date of admission: 06/20/18 07:56 Primary care physician: Naomi Lay CNP Consults: 06/19/18 03:35 Consult to Cardiology [CONS] Routine Comment: Consulting Provider: [facility] [place] Reason for Consult: possible TIA Call Completed: No Consult to Neurology [CONS] Routine Consulting Provider: [facility] Reason for Consult: possible infarct on head CT Call Completed: No [facility] [place] Anticipated date of discharge: 06/23/18 - Constitutional Vitals: Temp Pulse Resp BP Pulse Ox 97.7 F 55 18 108/70 97 06/21/18 03:14 06/21/18 05:00 06/21/18 03:14 06/21/18 05:00 06/21/18 03:14 General appearance: Present: cooperative, A&O X 3, pleasant, no acute distress, answers questions appropriately Exam: General: Awake, alert and oriented x 4, no acute distress, answer questions appropriately HEENT: moist mucus membranes, EOMI, PERRLA, Left clean dry intact dressing over neck CV: RRR, no murmurs Lungs: CTAB, no wheezes, rhonchi, or rales Abd: Soft, nontender, normal bowels sounds MSK: 5/5 strength bilaterally Ext: no edema, cyanosis, or clubbing, right knee pain Spine: mild low spinal tenderness Neuro: CN 2-12 grossly intact, no focal deficits, moves all extremities spontaneously, 5/5 strength bilaterally, sensation intact. Psych: alert and oriented x 4, no acute distress, answers questions appropriately, normal mood and affect congruent, no si/hi, no delusions, no hallucinations. - Patient Status Disposition: Home, Self-Care Condition: Good Functional capacity at discharge: independent ambulation Overall status at discharge: patient is progressing back to baseline - Discharge Instructions Instructions: Atorvastatin (By mouth), Carotid Endarterectomy (DC) Follow Up With: Naomi Lay CNP [Primary Care Provider] - 06/25/18 3:00 pm () Blane Garrido MD [Partnered Physician] - 07/07/18 10:30 am (This appointment is in [place]) Additional Instructions: May shower 06/22/2018. Wash wound gently and pat to dry. No driving for 7 days. - Diet and Activity Activity: as per physical therapy, increase activity as tolerated Diet: low fat, low cholesterol, low salt diet <Alla Haley - Last Filed: 06/23/18 16:44> Date of Encounter: 06/21/18 - Discharge Diagnosis (1) Hypotension Status: Inactive Qualifiers: Hypotension type: unspecified hypotension type Qualified Code(s): I95.9 - Hypotension, unspecified (2) Episode of syncope Status: Acute Qualifiers: Syncope type: unspecified Qualified Code(s): R55 - Syncope and collapse (3) TIA (transient ischemic attack) Status: Suspected (4) Hypertension Status: Chronic Qualifiers: Hypertension type: essential hypertension Qualified Code(s): I10 - Essential (primary) hypertension (5) COPD (chronic obstructive pulmonary disease) Status: Chronic Qualifiers: COPD type: unspecified COPD Qualified Code(s): J44.9 - Chronic obstructive pulmonary disease, unspecified (6) CAD (coronary artery disease) Status: Chronic Qualifiers: Coronary Disease-Associated Artery/Lesion type: unspecified vessel or lesion type [place] vs. transplanted heart: [place] heart Associated angina: angina presence unspecified Qualified Code(s): I25.10 - Atherosclerotic heart disease of [place] coronary artery without angina pectoris (7) DVT prophylaxis Status: Acute (8) Leukocytosis Status: Acute Qualifiers: Leukocytosis type: unspecified Qualified Code(s): D72.829 - Elevated white blood cell count, unspecified Hospital course: Mr. Cruz is a 58 year old male - Time Spent with Patient Total time spent providing and/or coordinating discharge services: Date of admission: 06/20/18 07:56 Primary care physician: Naomi Lay CNP Consults: 06/19/18 03:35 Consult to Cardiology [CONS] Routine Comment: Consulting Provider: Card[facility] Reason for Consult: possible TIA Call Completed: No Consult to Neurology [CONS] Routine Consulting Provider: [facility] Reason for Consult: possible infarct on head CT Call Completed: No 06/21/18 08:41 Consult to Retail Sales Specialist [CONS] Routine Reason for SW Consult: Mother doesn't want patient to return home, determine placement? patient may be service connected. - Constitutional Vitals: Temp Pulse Resp BP Pulse Ox 97.8 F 52 16 119/83 94 06/22/18 06:55 06/22/18 06:55 06/22/18 07:49 06/22/18 07:49 06/22/18 07:49 - Attending Attestation I have seen and examined this pt independently. I have discussed with resident physician Dr Root regarding the management plan. Agree with the documentation.
[2018-06-21] MEDS: Aspirin Enteric Coated 81 MG Tablet PO SCH (07:36)
[2018-06-21] MEDS: Tiotropium 18 MCG inhalation IH SCH (07:40)
--- NOTE | 2018-06-21 07:49 | Internal Med Progress Note ---
<VicentematiasNilay - Last Filed: 06/21/18 08:42> Hospitalist Progress Note - Encounter Date of Encounter: 06/21/18 Time of Encounter: 07:48 - Subjective Interval History: Patient reports doing well this morning. Discussed results of testing and answered all questions with patient this morning. Patient has some right knee pain and chronic low back pain this morning. Patient has no pain meds scheduled and reports being on tramadol at home prn. Patient denies symptoms overnight. Denies fevers, chills, sweats, nausea, vomiting, changes in vision or hearing, dizziness, lightheadedness, neck pain, chest pain, palpitations, shortness of breath, cough, abdominal pain, changes in bowels or bladder, weakness, loss of sensation, or rash. - Exam Vitals: Temp Pulse Resp BP Pulse Ox 98.4 F 57 18 123/72 97 06/21/18 07:17 06/21/18 07:17 06/21/18 07:17 06/21/18 07:17 06/21/18 07:17 Exam: General: Awake, alert and oriented x 4, no acute distress, answer questions appropriately HEENT: moist mucus membranes, EOMI, PERRLA, Left clean dry intact dressing over neck CV: RRR, no murmurs Lungs: CTAB, no wheezes, rhonchi, or rales Abd: Soft, nontender, normal bowels sounds MSK: 5/5 strength bilaterally Ext: no edema, cyanosis, or clubbing, right knee pain Spine: mild low spinal tenderness Neuro: CN 2-12 grossly intact, no focal deficits, moves all extremities spontaneously, limited RLE due to pain, 5/5 strength bilaterally, sensation intact. Psych: alert and oriented x 4, no acute distress, answers questions appropriately, normal mood and affect congruent, no si/hi, no delusions, no hallucinations. - Assessment and Plan (1) Pre-syncope Current Visit: Yes Status: Acute Assessment and Plan: Etiology unclear, but most likely related to hypotension of uncertain etiology. No loss of consciousness, no head injury. Bp has been stable since admission, Cardio evaluated patient and note reviewed. Troponin 0.03, 0.03, 0.03 Carotid duplex with critical Left proximal carotid disease CT angio Neck revealed 95% stenosis L ICA, s/p Left carotid endarterectomy. EKG with normal sinus rhythm Echo completed: EF 60-65%, normal LV function and structure, normal RV function and structure, no PFO, no valvular dysfunction. Orthostatic vitals unremarkable UDS negative -Continue monitoring vitals. -Fall precautions -Social work consulted for placement, patient may be service connected. Mother refuses patient to go back home, unable to take care of patient, but patient seems to be medically appropriate and able to take care of self. No Psych consult during visit as not appropriate, patient seems to have appropriate medical decision making capacity throughout this visit. (2) Abnormal CT of the head Current Visit: Yes Status: Acute Assessment and Plan: CT Head revealed no acute intracranial hemorrhage, mild cerebral atrophy, and small focal area of cortical effacement in left lob posterior temporal lobe suggestive of possible acute infarct. Patient has otherwise not had any neurological deficits on history of clinically. Neurology reviewed images and findings likely artifact. Neurology note reviewed, will order MRI without contrast to confirm diagnosis as patient had hypotension, elevated WBC, and newly found left carotid arter stenosis. MRI Brain revealed multiple old infarcts withh associated gliosis, patchy small vessel ischemic changes, no acute infarct. -Due to hx of infarcts and carotid artery disease, will continue daily statin and aspirin. No need for DAPT as no acute infarct, not technically a TIA without neurological symptoms. (3) Hypertension Current Visit: No Status: Chronic Assessment and Plan: Upon EMS arrival, patient had bp in 60/40s, continued low bp in [place] ED which responded to 2L normal saline. Bp otherwise continues to be stable during hospitalization and upon arrival. Echo as noted in assessment above. Cardio note reviewed, no additional workup. Continue to monitor. (4) Carotid stenosis, left Current Visit: Yes Status: Acute Assessment and Plan: Cartoid duplex: Left proximal ICA critical stenosis 80-99%, Right proximal ICA nonstenotic plaque. POD 1 s/p L carotid endarterectomy CT angio neck revealed 95% stenosis of Left ICA -pending final recommendations -Continue with daily statin and aspirin. (5) CAD (coronary artery disease) Current Visit: No Status: Chronic Assessment and Plan: History of CAD per patient, cath revealed 50% blockages, no PCI or stents. (6) Leukocytosis Current Visit: Yes Status: Acute Assessment and Plan: Elevated WBCon admission. 17.8, 15.0, 11.4, 15.1 this morning CXR unremarkable UA negative Patient otherwise asymptomatic. Likely reactive. Continue monitoring. (7) Right knee pain Current Visit: Yes Status: Acute Assessment and Plan: History of R knee arthroplasty and chronic back and knee pain. Acute on chronic R knee pain. XR knee without acute findings. -Continue home med, Tramadol q6h prn for pain. (8) DVT prophylaxis Current Visit: Yes Status: Acute Assessment and Plan: heparin sq DVT Prophylaxis: heparin sq - Time Spent with Patient Total time spent is greater than 50% in coordination of care (as documented) at patient's floor/unit and/or counseling patient: Internal Medicine: Result - Labs CBC & Chem 7: 06/21/18 04:45 06/21/18 04:45 Labs: Short CBC 06/21/18 Range/Units 04:45 WBC 15.1 H (4.3-11.1) K/mcL Hgb 12.4 L (12.9-16.9) g/dL Hct 36.4 L (37.5-50.1) % Plt Count 246 (140-400) K/mcL Neutrophils # 13.2 H (1.6-8.9) K/mcL BMP 06/21/18 04:45 Sodium 137 Potassium 4.2 Chloride 106 Carbon Dioxide 24 BUN 9 Creatinine 0.67 L Glucose 124 H Calcium 8.9 Consult Discharge Plan - Plan Referrals: Naomi Lay CNP [Primary Care Provider] - 06/25/18 3:00 pm () Blane Garrido MD [Partnered Physician] - 07/07/18 10:30 am (This appointment is in [place]) Prescriptions: Atorvastatin [Lipitor] 80 mg PO HS #30 tablet <Alla Haley - Last Filed: 06/21/18 13:22> Hospitalist Progress Note - Encounter Date of Encounter: 06/21/18 - Exam Vitals: Temp Pulse Resp BP Pulse Ox 98.1 F 59 16 99/73 96 06/21/18 11:47 06/21/18 11:47 06/21/18 11:47 06/21/18 11:47 06/21/18 11:47 - Assessment and Plan (1) Hypotension Current Visit: No Status: Inactive (2) Episode of syncope Current Visit: Yes Status: Acute (3) TIA (transient ischemic attack) Current Visit: Yes Status: Suspected (4) Hypertension Current Visit: No Status: Chronic (5) COPD (chronic obstructive pulmonary disease) Current Visit: Yes Status: Chronic (6) CAD (coronary artery disease) Current Visit: No Status: Chronic (7) DVT prophylaxis Current Visit: Yes Status: Acute (8) Leukocytosis Current Visit: Yes Status: Acute - Time Spent with Patient Total time spent is greater than 50% in coordination of care (as documented) at patient's floor/unit and/or counseling patient: Internal Medicine: Result - Labs CBC & Chem 7: 06/21/18 04:45 06/21/18 04:45 Labs: Short CBC 06/21/18 Range/Units 04:45 WBC 15.1 H (4.3-11.1) K/mcL Hgb 12.4 L (12.9-16.9) g/dL Hct 36.4 L (37.5-50.1) % Plt Count 246 (140-400) K/mcL Neutrophils # 13.2 H (1.6-8.9) K/mcL BMP 06/21/18 04:45 Sodium 137 Potassium 4.2 Chloride 106 Carbon Dioxide 24 BUN 9 Creatinine 0.67 L Glucose 124 H Calcium 8.9 - Attending Attestation I have seen and examined this pt. I have discussed with resident physician Ivett Mendoza regarding the management plan. Agree with the documentation. <Nilay Root - Last Filed: 06/21/18 08:42> (3) Hypertension Qualifiers: Hypertension type: essential hypertension Qualified Code(s): I10 - Essential (primary) hypertension (5) CAD (coronary artery disease) Qualifiers: Coronary Disease-Associated Artery/Lesion type: unspecified vessel or lesion type [place] vs. transplanted heart: [place] heart Associated angina: angina presence unspecified Qualified Code(s): I25.10 - Atherosclerotic heart disease of [place] coronary artery without angina pectoris (6) Leukocytosis Qualifiers: Leukocytosis type: unspecified Qualified Code(s): D72.829 - Elevated white blood cell count, unspecified (7) Right knee pain Qualifiers: Chronicity: chronic Qualified Code(s): M25.561 - Pain in right knee; G89.29 - Other chronic pain <Alla Haley - Last Filed: 06/21/18 13:22> (1) Hypotension Qualifiers: Hypotension type: unspecified hypotension type Qualified Code(s): I95.9 - Hypotension, unspecified (2) Episode of syncope Qualifiers: Syncope type: unspecified Qualified Code(s): R55 - Syncope and collapse (4) Hypertension Qualifiers: Hypertension type: essential hypertension Qualified Code(s): I10 - Essential (primary) hypertension (5) COPD (chronic obstructive pulmonary disease) Qualifiers: COPD type: unspecified COPD Qualified Code(s): J44.9 - Chronic obstructive pulmonary disease, unspecified (6) CAD (coronary artery disease) Qualifiers: Coronary Disease-Associated Artery/Lesion type: unspecified vessel or lesion type [place] vs. transplanted heart: [place] heart Associated angina: angina presence unspecified Qualified Code(s): I25.10 - Atherosclerotic heart disease of [place] coronary artery without angina pectoris (8) Leukocytosis Qualifiers: Leukocytosis type: unspecified Qualified Code(s): D72.829 - Elevated white blood cell count, unspecified
--- NOTE | 2018-06-21 16:47 | Vascular/[facility] Progress Note ---
Date of Encounter: 06/21/18 Time of Encounter: 15:35 - Assessment and plan (1) Carotid stenosis, left Current Visit: Yes Status: Chronic The patient is postoperative day #1 after a left carotid endarterectomy. He appears to be healing well. He has no focal neurologic deficits. He may be discharged from a vascular perspective. He will follow-up in vascular clinic with Dr. Garrido on 07/07/2018 at 10:30 AM. - Subjective Interval history: The patient is alert and oriented. He reports that he is comfortable. He denies any significant pain. He denies any chest pain or shortness of breath. Vital Signs, Last 4 Hours Temp Pulse Resp BP Pulse Ox 06/21/18 15:43 98.1 F 65 18 102/68 97 - Physical Examination General: Present: Conversant, No Apparent Distress Neck: Present: Other (Incision clean, dry and intact without erythema or drainage, no pulsatile mass, no fluctuance, expected postoperative ecchymosis at the incision) Cardiac: Present: Reg Rate and Rhythm Lungs: Present: Normal Breath Sounds Neuro: Present: Alert and responsive, Motor nerves grossly intact, Sensory nerves grossly intact Vascular: Present: Normal capillary refill. Absent: Cyanosis, Edema Abdomen: Present: Soft Skin: Present: No rashes noted on visualized skin Results 06/21/18 04:45 06/21/18 04:45 Lab Results, Last 24 hours 06/21/18 06/21/18 04:45 04:45 WBC 15.1 H Hgb 12.4 L Hct 36.4 L Plt Count 246 Sodium 137 Potassium 4.2 Chloride 106 Carbon Dioxide 24 BUN 9 Creatinine 0.67 L Glucose 124 H Calcium 8.9 Consult Discharge Plan - Plan Additional Instructions: May shower 06/22/2018. Wash wound gently and pat to dry. No driving for 7 days. Referrals: Naomi Lay CNP [Primary Care Provider] - 06/25/18 3:00 pm () Blane Garrido MD [Partnered Physician] - 07/07/18 10:30 am (This appointment is in [place]) Prescriptions: Atorvastatin [Lipitor] 80 mg PO HS #30 tablet
[2018-06-21] MEDS: traZODone 50 MG TABLET PO PRN (20:37)
[2018-06-21] MEDS: Ringers Solution, Lactated 1,000 ML IVC SCH (20:38)
[2018-06-21] MEDS: *HR* OxyCODONE Immed Rel 5 MG TABLET PO PRN (23:21)
[2018-06-22] MEDS: *HR* Heparin 5,000 UNIT/ML VIAL SQ SCH (05:35)
[2018-06-22 06:58] VITALS: BP 119/83
[2018-06-22] MEDS: Tiotropium 18 MCG inhalation IH SCH (07:49)
[2018-06-22] MEDS: Aspirin Enteric Coated 81 MG Tablet PO SCH (08:19)
--- NOTE | 2018-06-22 10:28 | Discharge Summary ---
<Nilay Root - Last Filed: 06/22/18 10:36> - NOTES TO OUTPATIENT PROVIDER Notes to Outpatient Provider: Mr. Cruz is a 58 year old male with history of htn who was transferred to [facility] with fall and abnormal CT Head findings. 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 Patient was determined on workup to have a critical L ICA stenosis on ultrasound and CTA neck. Underwent Left carotid endarterectomy on 06/20/18 successfully. Patient ready for discharge home with follow up with PCP within 7 days and follow up with Vascular surgery as scheduled. Will contiue to hold home bp meds as bp has been stable during this admission. Continue with daily statin as has history and findings of old infarcts. ELevated WBC during admission, likely reactive. Repeat CBC in 5-7 days. Orders not resulted at time of discharge: Pending orders 06/19/18 03:29 EKG [ECG 12 lead ECG] [ECG] Routine Date of Encounter: 06/22/18 Time of Encounter: 10:24 - Discharge Diagnosis (1) Pre-syncope Priority: Primary Status: Acute Assessment and Plan: Etiology unclear, but most likely related to hypotension of uncertain etiology. No loss of consciousness, no head injury. Bp has been stable since admission, Cardio evaluated patient and note reviewed. Troponin 0.03, 0.03, 0.03 Carotid duplex with critical Left proximal carotid disease CT angio Neck revealed 95% stenosis L ICA, s/p Left carotid endarterectomy. EKG with normal sinus rhythm Echo completed: EF 60-65%, normal LV function and structure, normal RV function and structure, no PFO, no valvular dysfunction. Orthostatic vitals unremarkable UDS negative -Continue monitoring vitals. -Fall precautions (2) Abnormal CT of the head Priority: Primary Status: Acute Assessment and Plan: CT Head revealed no acute intracranial hemorrhage, mild cerebral atrophy, and small focal area of cortical effacement in left lob posterior temporal lobe suggestive of possible acute infarct. Patient has otherwise not had any neurological deficits on history of clinically. Neurology reviewed images and findings likely artifact. Neurology note reviewed, will order MRI without contrast to confirm diagnosis as patient had hypotension, elevated WBC, and newly found left carotid arter stenosis. MRI Brain revealed multiple old infarcts withh associated gliosis, patchy small vessel ischemic changes, no acute infarct. -Due to hx of infarcts and carotid artery disease, will continue daily statin and aspirin. No need for DAPT as no acute infarct, not technically a TIA without neurological symptoms. (3) Hypertension Priority: Secondary Status: Chronic Assessment and Plan: Upon EMS arrival, patient had bp in 60/40s, continued low bp in [place] ED which responded to 2L normal saline. Bp otherwise continues to be stable during hospitalization and upon arrival. Echo as noted in assessment above. Cardio note reviewed, no additional workup. Continue to monitor. Qualifiers: Hypertension type: essential hypertension Qualified Code(s): I10 - Essential (primary) hypertension (4) Carotid stenosis, left Priority: Primary Status: Chronic Assessment and Plan: Cartoid duplex: Left proximal ICA critical stenosis 80-99%, Right proximal ICA nonstenotic plaque. POD 2 s/p L carotid endarterectomy CT angio neck revealed 95% stenosis of Left ICA -Continue with daily statin and aspirin. (5) CAD (coronary artery disease) Priority: Secondary Status: Chronic Assessment and Plan: History of CAD per patient, cath revealed 50% blockages, no PCI or stents. Qualifiers: Coronary Disease-Associated Artery/Lesion type: unspecified vessel or lesion type [place] vs. transplanted heart: [place] heart Associated angina: angina presence unspecified Qualified Code(s): I25.10 - Atherosclerotic heart disease of [place] coronary artery without angina pectoris (6) Leukocytosis Priority: Primary Status: Acute Assessment and Plan: Elevated WBC on admission. 17.8, 15.0, 11.4, 15.1 CXR unremarkable UA negative Patient otherwise asymptomatic. Likely reactive. Continue monitoring. Qualifiers: Leukocytosis type: unspecified Qualified Code(s): D72.829 - Elevated white blood cell count, unspecified (7) Right knee pain Priority: Primary Status: Acute Assessment and Plan: History of R knee arthroplasty and chronic back and knee pain. Acute on chronic R knee pain. XR knee without acute findings. -Continue home med, Tramadol q6h prn for pain. Qualifiers: Chronicity: chronic Qualified Code(s): M25.561 - Pain in right knee; G89.29 - Other chronic pain Hospital course: Mr. Cruz is a 58 year old male with history of htn who was transferred to [facility] with fall and abnormal CT Head findings. 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 Patient was determined on workup to have a critical L ICA stenosis on ultrasound and CTA neck. Underwent Left carotid endarterectomy on 06/20/18 successfully. Patient ready for discharge home with follow up with PCP within 7 days and follow up with Vascular surgery as scheduled. Will contiue to hold home bp meds as bp has been stable during this admission. Continue with daily statin as has history and findings of old infarcts. On day of discharge patient was doing well with no new complaints. Denies fevers, chills, sweats, nausea, vomiting, chest pain, shortness of breath, abdomianl pain, changes in bowels or bladder, weakness, loss of sensation, or rash. Reports some pain of left neck where surgery. Spoke with patient's mother in the room. No medical indication for needing home health based on PT/OT notes and we do not feel Psych consult necessary at this time as we believe patient has medical decision capacity. Follow up with PCP in 7 days. Repeat CBC 5-7 days due to elevated WBC. Discharge discussed with: patient, family - Time Spent with Patient Total time spent providing and/or coordinating discharge services: - Discharge Medications Prescriptions: Atorvastatin [Lipitor] 80 mg PO HS #30 tablet Home Medications: Aspirin [Lo-Dose Aspirin EC] 81 mg PO DAILY 01/30/18 [History] Trazodone HCl 300 mg PO HS PRN 01/30/18 [History] Fluticasone Propionate Nasal [Flonase] 2 spr NS DAILY 06/19/18 [History] Mesalamine [Lialda] 1.2 gm PO Q8H 06/19/18 [History] Sertraline [Zoloft] 100 mg PO DAILY 06/19/18 [History] Atorvastatin [Lipitor] 80 mg PO HS #30 tablet 06/21/18 [Rx] Allergies/Adverse Reactions: 3 Allergy/AdvReac Type Severity Reaction Status Date / Time No Known Allergies Allergy Verified 07/09/17 14:07 Date of admission: 06/20/18 07:56 Primary care physician: Naomi Lay CNP Consults: 06/19/18 03:35 Consult to Cardiology [CONS] Routine Comment: Consulting Provider: [facility] [place] Reason for Consult: possible TIA Call Completed: No Consult to Neurology [CONS] Routine Consulting Provider: [facility] Reason for Consult: possible infarct on head CT Call Completed: No 06/21/18 08:41 Consult to Quality Control Scientist [CONS] Routine Reason for SW Consult: Mother doesn't want patient to return home, determine placement? patient may be service connected. - Constitutional Vitals: Temp Pulse Resp BP Pulse Ox 97.8 F 52 16 119/83 94 06/22/18 06:55 06/22/18 06:55 06/22/18 07:49 06/22/18 07:49 06/22/18 07:49 General appearance: Present: cooperative, A&O X 3, pleasant, no acute distress, answers questions appropriately Exam: General: Awake, alert and oriented x 4, no acute distress, answer questions appropriately HEENT: moist mucus membranes, EOMI, PERRLA, Left neck surgical wound healing and dry non erythematous CV: RRR, no murmurs Lungs: CTAB, no wheezes, rhonchi, or rales Abd: Soft, nontender, normal bowels sounds MSK: 5/5 strength bilaterally Ext: no edema, cyanosis, or clubbing, right knee pain Spine: mild low spinal tenderness Neuro: CN 2-12 grossly intact, no focal deficits, moves all extremities spontaneously, 5/5 strength bilaterally, sensation intact. Psych: alert and oriented x 4, no acute distress, answers questions appropriately, normal mood and affect congruent, no si/hi, no delusions, no hallucinations. - Patient Status Disposition: Home, Self-Care Condition: Good Functional capacity at discharge: independent ambulation Overall status at discharge: patient is back to baseline - Discharge Instructions Instructions: Atorvastatin (By mouth), Carotid Endarterectomy (DC) Follow Up With: Naomi Lay CNP [Primary Care Provider] - 06/25/18 3:00 pm () Blane Garrido MD [Partnered Physician] - 07/07/18 10:30 am (This appointment is in [place]) Additional Instructions: May shower 06/22/2018. Wash wound gently and pat to dry. No driving for 7 days. - Diet and Activity Activity: increase activity as tolerated Diet: low fat, low cholesterol <Alla Haley - Last Filed: 06/22/18 11:39> - NOTES TO OUTPATIENT PROVIDER Notes to Outpatient Provider: Pt present with presycope and BP low at ER (60/40) . His HTN meds is on hold. Plz f/u BP as OP and adjust meds accordingly. Orders not resulted at time of discharge: Pending orders 06/19/18 03:29 EKG [ECG 12 lead ECG] [ECG] Routine Date of Encounter: 06/22/18 - Discharge Diagnosis (1) Hypotension Status: Inactive Qualifiers: Hypotension type: unspecified hypotension type Qualified Code(s): I95.9 - Hypotension, unspecified (2) Episode of syncope Status: Acute Qualifiers: Syncope type: unspecified Qualified Code(s): R55 - Syncope and collapse (3) TIA (transient ischemic attack) Status: Suspected (4) Hypertension Status: Chronic Qualifiers: Hypertension type: essential hypertension Qualified Code(s): I10 - Essential (primary) hypertension (5) COPD (chronic obstructive pulmonary disease) Status: Chronic Qualifiers: COPD type: unspecified COPD Qualified Code(s): J44.9 - Chronic obstructive pulmonary disease, unspecified (6) CAD (coronary artery disease) Status: Chronic Qualifiers: Coronary Disease-Associated Artery/Lesion type: unspecified vessel or lesion type [place] vs. transplanted heart: [place] heart Associated angina: angina presence unspecified Qualified Code(s): I25.10 - Atherosclerotic heart disease of [place] coronary artery without angina pectoris (7) DVT prophylaxis Status: Acute (8) Leukocytosis Status: Acute Qualifiers: Leukocytosis type: unspecified Qualified Code(s): D72.829 - Elevated white blood cell count, unspecified Hospital course: Mr. Cruz is a 58 year old male - Time Spent with Patient Total time spent providing and/or coordinating discharge services: Date of admission: 06/20/18 07:56 Primary care physician: Naomi Lay CNP Consults: 06/19/18 03:35 Consult to Cardiology [CONS] Routine Comment: Consulting Provider: [facility] Reason for Consult: possible TIA Call Completed: No Consult to Neurology [CONS] Routine Consulting Provider: [facility] Reason for Consult: possible infarct on head CT Call Completed: No 06/21/18 08:41 Consult to Quality Control Scientist [CONS] Routine Reason for SW Consult: Mother doesn't want patient to return home, determine placement? patient may be service connected. Discharging clinician: Alla Haley Anticipated date of discharge: 06/22/18 - Constitutional Vitals: Temp Pulse Resp BP Pulse Ox 97.8 F 52 16 119/83 94 06/22/18 06:55 06/22/18 06:55 06/22/18 07:49 06/22/18 07:49 06/22/18 07:49 - Patient Status Functional capacity at discharge: independent ambulation Overall status at discharge: patient is back to baseline - Diet and Activity Activity: increase activity as tolerated Diet: low fat, low cholesterol - Attending Attestation I have seen and examined this pt independently. I have discussed with resident physician Dr Root regarding the discharge and follow up plan. Agree with the documentation.
== END 2018-06-22 11:35 | disposition home or self-care (01) | DRG 39 ==
LOC: 3BNU → SUATTDRO 06-19 00:56 → 2NNU 06-20 15:08
PROVIDERS: ADMIT Internal Medicine; ATTEND Internal Medicine

== ENCOUNTER 2018-10-29 06:04 | Inpatient (IN) ==
[2018-10-29] MEDS ORDERED: CeFAZolin Syr 2,000MG/20 ML 2,000 MG/20 ML SYRINGE IVPB ONE (06:23)
[2018-10-29] MEDS ORDERED: Albuterol 2.5 MG/3 ML NEBULIZER IH ONE (06:23)
[2018-10-29] MEDS ORDERED: Ringers Solution, Lactated 1,000 ML IVC SCH (06:30)
[2018-10-29] MEDS ORDERED: Lidocaine -MPF 2% 2 ML VIAL ONE (06:58)
[2018-10-29] MEDS ORDERED: Ondansetron 4 MG/2 ML VIAL ONE (06:58)
[2018-10-29] MEDS ORDERED: *HR* Succinylcholine 200 MG/10 ML VIAL IVP ONE (06:58)
[2018-10-29] MEDS ORDERED: Lidocaine -MPF 4% 5 ML AMPUL ONE (06:58)
[2018-10-29] MEDS ORDERED: Dexamethasone 4 MG/ML VIAL ONE (06:58)
[2018-10-29] MEDS ORDERED: *HR* Propofol 200 MG/20 ML VIAL IVP ONE (07:00)
[2018-10-29] MEDS ORDERED: *HR* Midazolam HCl 2 MG/2 ML VIAL ONE (07:00)
[2018-10-29] MEDS ORDERED: *HR* FentaNYL (PF) 100 MCG/2 ML VIAL ONE ×2 (07:00→11:42)
[2018-10-29] MEDS ORDERED: KETAMINE HCL 50 MG/ML SYRINGE IV ONE (07:06)
[2018-10-29] MEDS ORDERED: *HR* Phenylephrine 10 MG/ML VIAL ONE ×2 (07:07→10:25)
[2018-10-29] MEDS ORDERED: Famotidine 20 MG/2 ML VIAL IVP ONE (07:08)
[2018-10-29] MEDS ORDERED: Acetaminophen IV 1,000 MG/100 ML INFUS..BTL IVPB ONE (07:09)
[2018-10-29] MEDS ORDERED: Pregabalin 75 MG CAPSULE PO ONE (07:09)
--- NOTE | 2018-10-29 07:12 | Anesthesia Evaluation PreOp ---
Date of Encounter: 10/29/18 Time of Encounter: 07:10 - Past History Planned Operation: L2 Kyphoplasty, L3-5 PLIF Cardiac History: HTN, Hyperlipidemia Pulmonary History: Former smoker (2019), COPD WINDOW GLAZIER History: Other (Anxiety/depression) Other Medical History: Denies Any Significant HX Anesthesia History: No Prior Anesthetic Complications, Past Anesthesia (oBack surgery 4 2009, B-TKR, R-THR, L-CEA 05/2018) Alcohol Use: heavy Drug use: none Medications and Allergies Aspirin [Lo-Dose Aspirin EC] 81 mg PO DAILY 01/30/18 [History] Trazodone HCl 300 mg PO HS PRN 01/30/18 [History] Fluticasone Propionate Nasal [Flonase] 2 spr NS DAILY 06/19/18 [History] Mesalamine [Lialda] 1.2 gm PO Q8H 06/19/18 [History] Sertraline [Zoloft] 100 mg PO DAILY 06/19/18 [History] Atorvastatin [Lipitor] 80 mg PO HS #30 tablet 06/21/18 [Rx] Allergy/AdvReac Type Severity Reaction Status Date / Time No Known Allergies Allergy Verified 10/21/18 13:13 - Meds/Allergy Pre-op Review Medications Reviewed: Yes Allergies Reviewed: Yes Beta Blockers on Current Med List: No Anesthesia Results - Labs Laboratory Tests 10/21/18 10/21/18 10/21/18 13:58 13:58 13:58 WBC 13.2 H Hgb 14.2 Hct 44.0 Plt Count 268 PT 11.2 APTT 30.1 Sodium 139 Potassium 3.8 Chloride 106 Carbon Dioxide 26 BUN 12 Creatinine 0.80 Est GFR (Non-Af Amer) > 60 - Imaging Additional studies: ECHO 05/2018 EV/EV echo with saline Impressions: LVEF 60-65%. Normal LV chamber size, wall thickness and function. Normal left ventricular diastolic function. Normal right ventricular structure and function. No evidence of PFO by color Doppler. No significant valvular dysfunction. Unable to estimate RVSP due to lack of TR jet. Left Ventricular Wall Motion: Rest Echo Findings All wall segments showed normal motion. Anesthesia Exam O2 Sat Height 1.83 m Weight 88.451 kg O2 Sat by Pulse Oximetry 94 O2 Sat by Pulse Oximetry 94 Vital Signs Temp Pulse Resp BP Pulse Ox 98.6 F 76 18 128/80 94 10/29/18 06:44 10/29/18 06:44 10/29/18 06:44 10/29/18 06:44 10/29/18 06:44 - HEENT Pupil (Motor): Pupils equal, EOMI Mallampati: II Teeth: Normal Oral Opening: Greater than 3 - W[place]OW G[place]ZIER LOC: Oriented [place]OW [place] Motor: Normal RUE, Normal LUE, Normal RLE, Normal LLE, Normal Face [place] Sensory: Normal: RUE, LUE, RLE, LLE, Face - Cardiac Rhythm: Regular Murmur: None - Pulmonary Breath Sounds: bilateral Clear Respiratory Effort: Symmetrical Anesthesia Assess/Plan ASA Score: 3 (cAD, COPD, HTN, Chol, recently quit smoking) Level of consciousness: Cooperative, Oriented, Tranquil Anesthetic Plan: General Monitoring Plan: Standard Monitors Recovery Plan: PACU Anes Supervising Prov Stmt: PT seen/evaluated, R&B Discussed,questions answered and consent obtained. Andrés jacob MD
[2018-10-29] MEDS ORDERED: *HR* Remifentanil 1 MG VIAL IVP ONE (07:14)
--- NOTE | 2018-10-29 07:40 | History & Physical Report ---
Date of Encounter: 10/29/18 Time of Encounter: 07:39 24 Hour HP Update - Instructions Instructions: If the History and Physical is less than 30 days old and was completed prior to A.M. admission and or procedure and has NOT been updated on calendar day of procedure please complete this update prior to performing procedure. - Update Patient reports changes in Medical Condition: No Changes in examination, assessment, or condition: No Changes in Medication: No Preop tests/diagnostics Reviewed: Yes Pre-Op MRSA Screen: Negative Surgery Remains Indicated: Yes Consent for Planned Operative Procedure(s) Verified: Yes - Pre-Operative Checklist Preoperative Checklist Indicated: No Prophylactic Antibiotic Ordered: Yes Home Medications Include Beta Desiree: No Beta Desiree Taken Today (Day of Surgery): No Beta Desiree Taken Yesterday (Day Prior to Surgery): No Is VTE Prophylaxis Indicated?: Yes
[2018-10-29] MEDS ORDERED: Bacitracin 50,000 UNIT, Polymyxin B Sulfate 500,000 UNIT, Sodium Chloride IRRigation 1,... IR ONE (07:45)
[2018-10-29] MEDS ORDERED: *HR* Rocuronium Bromide 50 MG/5 ML VIAL ONE (08:13)
[2018-10-29] MEDS ORDERED: Isovue-M 200 10 ML VIAL ONE (08:43)
[2018-10-29] MEDS ORDERED: Isovue-300 50 ML VIAL ONE (08:44)
[2018-10-29] MEDS ORDERED: *HR* Vasopressin 20 UNIT/ML VIAL ONE (10:05)
[2018-10-29] MEDS ORDERED: Albumin Human 5% 25.0 GM/500 ML VIAL ONE (10:05)
[2018-10-29] MEDS ORDERED: *HR* HYDROMORPHONE 2 MG/ML VIAL ONE (11:54)
--- NOTE | 2018-10-29 12:33 | Orthopedic Operative Note ---
Date of procedure: 10/29/18 Pre-op diagnosis: Vertebral fracture, retrolisthesis, lumbar stenosis, lumbar radiculopathy Post-op diagnosis: same Operation/Findings: Exploration of fusion, removal of hardware, posterior lumbar interbody fusion L3-L5, kyphoplasty L2: The patient was brought to the operative theater where successful endotracheal anesthesia was performed. The patient was given antibiotics prior to the start of the procedure. . Compression boots and stockings were used for deep vein thrombosis prophylaxis. A Rosales catheter was placed. Leads for neuro monitoring were placed on the upper and lower extremities. This included the cranium. The neuro monitoring personnel confirmed there were satisfactory readings prior to the start of the procedure. Patient was then turned prone on a well-padded Brigido table. The back was prepped and draped in the usual sterile fashion. 2 C-arm fluorographic devices were brought into position such that simultaneous AP and lateral views centered over the involved L2 vertebral body could be performed. A stab incision was made over the superior-lateral aspect of the left L2 pedicle. We introduced a Jamshidi needle into the L2 vertebral body via a transpedicular route. We took biplanar images of the L2 vertebral body using fluorography. The needle was found to be in appropriate position and within the confines of the L2 vertebral body. We then introduced a biopsy trocar and obtained a biopsy specimen of the L2 vertebral body. This was sent for pathologic evaluation. We then removed the biopsy trocar and introduced a Kyphon balloon. The balloon was insufflated to approximately 5 mL volume and subsequently deflated. The balloon was seen to expand within the confines of the L2 vertebral body on biplanar fluorographic views. The balloon was then removed. We then inserted cement trochars and sequ entially placed bone cement within the confines of the L2 vertebral body. We took intermittent fluorographic views which confirmed satisfactory placement of the cement. After completion of the cementation process, the trocar was removed. We took final AP and lateral fluorographic views. We then closed the stab incision with 2-0 nylon suture. An additional incision was was marked and centered over the involved L3-L5 levels in the mid line. The incision was deepened through the lumbar fascia. Bovie cautery and [place] elevators were used to reflect the paraspinal musculature at the lateral extent of the L3, L4, and L5 transverse processes of the involved L3-L5 levels. We exposed the hardware at L4 and L5. There was some looseningnoted of the pedicle screws consistent with pseudoarthrosis. A broken pedicle screw at L5 was previously noted on radiographic evaluation. We removed the hardware at L4 and L5 using standard instruments. We then placed pedicle screws in standard fashion with the aid of fluoroscopy and anatomic landmarks. Briefly a starter awl was used. A gearshift was subsequently used to enter the mapping pilot hole via a transpedicular route into the vertebral body. The mapping pilot hole was tapped with an undersized instrument, and subsequently four 6.5 x 40 mm pedicle screws were placed bilaterally at the indicated L3 and L4 levels. The screws were tested with the aid of the neurologic monitoring staff via pedicle screw stimulation. All reading suggested there was no significant cortical wall breech. The screws were also evaluated fluoro- graphically and appeared to be in satisfactory position. We then turned our attention to the decompression portion of the procedure. We removed the supraspinous and interspinous ligaments and subsequently the insertion of the ligamentum flavum on the undersurface of the proximal L3 lamina was dislodged with a curette. We then removed the ligamentum flavum as well as undercut the L3-4 facets at this L3-4 level to decompress the lateral recesses. We also performed a L3 laminectomy. After the decompression, which was over and above that which was required to place the interbody graft, the foramen and traversing roots at this L3-4 level were found to be free and patent. We also took part of the medial facets at L3-4 in order to aid in the decompression. We then protected the neural elements including the thecal sac and traversing nerve root on the right with a dural retractor. We made an annulotomy into the L3-4 disc space and then removed entire disc material using Pituitary instruments. We trialed various size grafts after the endplates were prepared for graft insertion. A 10 x 26 enter body graft fit well within the L3-4 disc space. We obtained some bone from the right posterior superior iliac spine through us a separate incision and combined with this with the bone which we had saved from the laminectomy portion of the procedure. This autograft bone was first placed in the anterior portion of the L3-4 disc space and additional bone was placed within the interbody graft spacer. We then placed the interbody graft spacer obliquely across the L3-4 disc space towards the midline while pr otecting the neural elements with a root retractor. When the graft was found to be in satisfactory position the stripping cutter and winder was removed. We then copiously irrigated the wound. We then decorticated the L3, L4, and L5 transverse processes as well as the L3-4 and L4-5 facet joints of the involved L3, L4, and L5 levels to aid in the posterolateral fusion. We placed autograft bone in the lateral gutters over these L3-L5 regions. We then placed rods within the screw heads of the L3 and L4 levels and first locked the distal screws and then subsequently locked the proximal screws so as to improve and reduce the retrolisthesis previously seen. We then closed the wound in layers with 1 Vicryl for the fascia, 2-0 Vicryl. Subcutaneous tissue, and Dermabond was used for skin closure. Sterile dressings were placed over the wound. The patient was turned supine on a hospital bed and extubated. All sponge instruments and needle counts were correct at the end of the procedure. The patient tolerated the procedure well without complications. Anesthesia: GETA Surgeon: Abhi Alvarez Jr Was there an bookkeeping assistant present: No Estimated blood loss (cc): 200 Specimen: L2 vertebral biopsy, broken hardware Condition: stable Disposition: PACU
--- NOTE | 2018-10-29 13:18 | Anesthesia Evaluation Post Op ---
Date of Encounter: 10/29/18 Time of Encounter: 13:16 - Vital Signs Vital Signs: Vital Signs Temp Pulse Resp BP Pulse Ox 10/29/18 13:04 98.3 F 93 18 103/70 96 10/29/18 12:54 98.3 F 89 20 105/72 95 10/29/18 12:44 90 19 106/67 95 10/29/18 12:34 91 15 107/71 96 10/29/18 12:24 98.8 F 102 26 116/73 99 10/29/18 06:48 18 128/80 94 10/29/18 06:44 98.6 F 76 18 128/80 94 Intake and Output 10/28/18 10/29/18 10/29/18 23:59 07:59 15:59 Output Total 680 / 680 Balance -680 / -680 Output: Estimated Blood Loss 200 / 200 Urine Amount (Catheter) 480 / 480 Other: Weight 88.451 kg Patient Weight 10/29/18 23:59 Weight 88.451 kg - Lungs Lungs: Clear Ascult./Percussion - Airway Airway: Non-obstructed - Cardiovascular Regular Rate - Mental Status Mental Status: Asleep with brisk response to light stimulation - Pain Pain Scale: 0 Pain Scale used: Numeric (1 - 10) - Nausea Vomiting Nausea Vomiting: Not Present - Hydration Hydration: Tolerates oral liquids, Rosales catheter - Discharge PostOp Status: Transfer Patient to floor Anes Supervising Prov Stmt: Pt seen/evaluated, VSS And has met criteria for discharge to floor. -MD Nereyda
[2018-10-29] MEDS ORDERED: Naloxone 0.4 MG/ML INJ IVP PRN (13:30)
[2018-10-29] MEDS ORDERED: *HR* HYDROcodone/Acet 5/325 mg TABLET PO PRN (13:30)
[2018-10-29] MEDS ORDERED: Acetaminophen 325 MG TABLET PO PRN (13:30)
[2018-10-29] MEDS ORDERED: Ondansetron 4 MG/2 ML VIAL IVP PRN (13:30)
[2018-10-29] MEDS: Ringers Solution, Lactated 1,000 ML IVC SCH (14:16)
[2018-10-29] MEDS: *HR* OxyCODONE Immed Rel 5 MG TABLET PO PRN ×2 (17:50→21:33)
[2018-10-29] MEDS: traZODone 50 MG TABLET PO PRN (21:34)
[2018-10-30] MEDS: Ringers Solution, Lactated 1,000 ML IVC SCH (00:31)
[2018-10-30] MEDS: *HR* OxyCODONE Immed Rel 5 MG TABLET PO PRN ×2 (04:11→09:12)
[2018-10-30 06:09] LABS: Basophils # 0.1 K/mcL (0.0-0.2); Basophils % 0.3 %; Eosinophils # 0.1 K/mcL (0.0-0.6); Eosinophils % 0.4 %; Hematocrit 38.4 % (37.5-50.1); Hemoglobin 12.6 g/dL (12.9-16.9); Immature Granulocytes % 0.5 % (0-4); Lymphocytes # 3.2 K/mcL (0.6-4.6); Lymphocytes % 16.9 %; Mean Corpuscular HGB Conc 32.8 g/dL (31.6-35.5); Mean Corpuscular Hemoglobin 28.1 pg (28.0-33.3); Mean Corpuscular Volume 85.7 fL (83.0-100.0); Mean Platelet Volume 10.5 fL (9.4-12.4); Monocytes # 1.4 K/mcL (0.0-1.3); Monocytes % 7.3 %; Platelet Count 234 K/mcL (140-400); Red Blood Count 4.48 M/mcL (4.19-5.50); Red Cell Distribution Width 15.2 % (11.5-14.5); Segmented Neutrophils % 74.6 %
[2018-10-30 06:30] LABS: BUN/Creatinine Ratio 17 (6-26); Blood Urea Nitrogen 10 mg/dL (8-23); Calcium 9.2 mg/dL (8.6-10.3); Carbon Dioxide 26 mEq/L (23-29); Chloride 105 mEq/L (98-107); Glucose 107 mg/dL (70-105); Osmolality,Calculated 288 (280-300); Potassium 3.7 mEq/L (3.5-5.1); Sodium 139 mEq/L (136-145); eGFR For Non-African Americans > 60 (> 60)
[2018-10-30] MEDS: Aspirin Enteric Coated 81 MG Tablet PO SCH (09:12)
[2018-10-30] MEDS: Fluticasone Propionate Nasal 50 MCG/SPRAY BOTTLE NS SCH (10:11)
[2018-10-30] MEDS ORDERED: *HR* HYDROcodone/Acet 5/325 mg TABLET PO PRN (13:32)
[2018-10-30] MEDS: *HR* HYDROcodone/Acet 10/325 mg TABLET PO PRN ×2 (15:45→20:08)
[2018-10-30] MEDS: traZODone 50 MG TABLET PO PRN (20:28)
[2018-10-31] MEDS: *HR* HYDROcodone/Acet 10/325 mg TABLET PO PRN ×4 (00:07→20:50)
--- NOTE | 2018-10-31 08:08 | Spine Progress Note ---
Date of Encounter: 10/30/18 Time of Encounter: 14:10 Subjective Principal diagnosis: Retrolisthesis, lumbar stenosis, status post lumbar fusion Interval history: The patient is without complaints. Afebrile vital signs are stable. Incision is clean dry and intact. Neurovascularly intact with regard to bilateral lower extremities. Fires all upper and lower extremity motor groups. Assessment :stable. Plan mobilize ,continue analgesics, discharge planning. Objective Vital signs: Vital Signs Temp Pulse Resp BP Pulse Ox 10/31/18 06:59 97.7 F 78 16 119/78 90 10/31/18 03:36 98.9 F 74 16 100/66 92 10/31/18 00:35 98.7 F 68 16 107/70 93 10/30/18 20:16 98.0 F 69 16 111/62 95 10/30/18 14:11 98.3 F 84 16 124/86 99 10/30/18 12:00 98 F 74 16 120/80 98 Intake and Output 10/30/18 10/31/18 10/31/18 23:59 07:59 15:59 Intake Total 850 / 850 240 / 240 Balance 850 / 850 240 / 240 Intake: Oral 850 / 850 240 / 240 Other: # Voids 1 Weight 87.3 kg Patient Weight 10/31/18 23:59 Weight 87.3 kg - Labs CBC & BMP: 10/30/18 05:41 10/30/18 05:41 Labs: Abnormal lab results WBC 18.7 K/mcL (4.3-11.1) H 10/30/18 05:41 Hgb 12.6 g/dL (12.9-16.9) L 10/30/18 05:41 RDW 15.2 % (11.5-14.5) H 10/30/18 05:41 Neutrophils # 14.0 K/mcL (1.6-8.9) H 10/30/18 05:41 Monocytes # 1.4 K/mcL (0.0-1.3) H 10/30/18 05:41 Creatinine 0.59 mg/dL (0.70-1.30) L 10/30/18 05:41 Glucose 107 mg/dL (70-105) H 10/30/18 05:41 Consult Discharge Plan - Plan Referrals: Naomi Lay, REMOTE SENSING ADVISOR [Primary Care Provider] -
[2018-10-31] MEDS: Aspirin Enteric Coated 81 MG Tablet PO SCH (09:36)
[2018-10-31] MEDS: Fluticasone Propionate Nasal 50 MCG/SPRAY BOTTLE NS SCH (09:39)
--- NOTE | 2018-10-31 15:47 | Discharge Summary ---
- NOTES TO OUTPATIENT PROVIDER Notes to Outpatient Provider: Follow-up in [facility] in 2 weeks Orders not resulted at time of discharge: Pending orders 10/29/18 XR fluoroscopy <1 hr [XR] Routine 10/29/18 10:01 Surgical Pathology [PTH] Routine Date of Encounter: 10/31/18 Time of Encounter: 15:45 - Discharge Diagnosis (1) Retrolisthesis of vertebrae Priority: Primary Status: Chronic (2) Vertebral compression fracture Priority: Secondary Status: Chronic (3) Lumbar stenosis with neurogenic claudication Priority: Secondary Status: Chronic (4) Lumbar radiculopathy Priority: Secondary Status: Chronic - Hospital Course Hospital course: Mr. Cruz is a 58 year old male The patient had an uneventful postoperative course. Progressed from intravenous analgesic needs to oral analgesic needs only. Remained neurovascularly intact and mobilized satisfactorily. All intraoperative and/or postoperative radiographic studies were satisfactory. Patient is discharged with plan for rehabilitation and follow-up in 2 weeks post discharge on analgesic medication and patient's home medications. - Time Spent with Patient Total time spent providing and/or coordinating discharge services: - Discharge Medications Home Medications: Aspirin [Lo-Dose Aspirin EC] 81 mg PO DAILY 01/30/18 [History] Trazodone HCl 300 mg PO HS PRN 01/30/18 [History] Fluticasone Propionate Nasal [Flonase] 2 spr NS DAILY 06/19/18 [History] Mesalamine [Lialda] 1.2 gm PO Q8H 06/19/18 [History] Sertraline [Zoloft] 100 mg PO DAILY 06/19/18 [History] Lisinopril-HCTZ 10-12.5 [Prinzide 10-12.5] 1 tab PO DAILY 10/29/18 [History] Meloxicam 15 mg PO BID 10/29/18 [History] Sulindac 200 mg PO BID 10/29/18 [History] Tramadol HCl [Ultram] 50 mg PO DAILY PRN 10/29/18 [History] Allergies/Adverse Reactions: Allergy/AdvReac Type Severity Reaction Status Date / Time No Known Allergies Allergy Verified 10/21/18 13:13 Date of admission: 10/29/18 13:29 Primary care physician: Naomi Lay CNP Consults: 10/29/18 13:30 Consult to Occupational Therapy [CONS] Routine Comment: Evaluate, develop and implement POC Reason for Consult: Postoperative rehabilitation Does patient have active BEDREST order?: No Is patient medically & hemodynamically stable?: Yes Patient assessed for mobility or mobilized this visit?: No Consult to Physical Therapy [CONS] Routine Comment: Evaluate, develop and implement POC Reason for Consult: Postoperative rehabilitation Does patient have active BEDREST order?: No Is patient medically & hemodynamically stable?: Yes Patient assessed for mobility or mobilized this visit?: No Consult to Spine Navigator [CONS] [CONS] Routine 10/29/18 14:07 Consult to Applications Sales Representative [CONS] Routine Reason for SW Consult: potential need for home health/ecf rehab after discharge - Impressions ITS Impressions Fluoroscopy 10/29/18 00:00 IMPRESSION: Fluoroscopy was utilized for the purposes of L2 kyphoplasty. D/ / 10/29/2018 09:43:17 Poncho Eaton MD / ariana Interpreting Provider: Poncho Eaton MD Lumbar Spine X-Ray 10/29/18 00:00 IMPRESSION: Fluoroscopy was utilized for the purposes of L2 kyphoplasty. D/ / 10/29/2018 09:43:17 Poncho Eaton MD / ariana Interpreting Provider: Poncho Eaton MD Lumbar Spine X-Ray 10/29/18 00:00 IMPRESSION: 1. Status post L2 vertebroplasty. 2. Status post L3-L5 transpedicular spinal fixation and L3-4 and L4-5 discectomy with spacer placement. 3. Limited single lateral radiograph. D/ / Simeon Espitia / Simeon Espitia Interpreting Provider: Simeon Espitia Xray Preliminary Report 10/29/18 00:00 IMPRESSION: Fluoroscopy was utilized for the purposes of L2 kyphoplasty. D/ / 10/29/2018 09:43:17 Poncho Eaton MD / ariana Interpreting Provider: Poncho Eaton MD Lumbar Spine X-Ray 10/31/18 12:34 IMPRESSION: Postsurgical changes as above. No acute fracture. D/ / Nicci Pierre MD / Nicci Pierre MD Interpreting Provider: Nicci Pierre MD - Patient Status Disposition: Home Health Service Condition: Good Functional capacity at discharge: uses cane/walker Overall status at discharge: patient is progressing back to baseline - Discharge Instructions Follow Up With: Naomi Lay, SURVIVAL EQUIPMENT REPAIRER [Primary Care Provider] - - Diet and Activity Activity: as per physical therapy Diet: advance to your usual diet
[2018-10-31] MEDS: traZODone 50 MG TABLET PO PRN (20:49)
[2018-11-01] MEDS: *HR* HYDROcodone/Acet 10/325 mg TABLET PO PRN ×2 (04:37→10:50)
--- NOTE | 2018-11-01 06:51 | Orthopedics Progress Note ---
Date of Encounter: 11/01/18 Time of Encounter: 06:51 Subjective Principal diagnosis: Retrolisthesis, lumbar stenosis, status post lumbar fusion Interval history: Patient doing well minimal complaints bilateral lower extremity neurovascularly intact stable for discharge Objective Vital signs: Vital Signs Temp Pulse Resp BP Pulse Ox 11/01/18 04:17 98.9 F 77 16 104/70 93 10/31/18 22:06 98.4 F 87 16 113/74 93 10/31/18 20:03 98.2 F 85 18 122/77 95 10/31/18 16:50 98.1 F 81 17 117/75 93 10/31/18 06:59 97.7 F 78 16 119/78 90 Intake and Output 10/31/18 10/31/18 11/01/18 15:59 23:59 07:59 Intake Total 240 / 240 750 / 750 350 / 350 Output Total 300 / 300 0 / 0 Balance -60 / -60 750 / 750 350 / 350 Intake: Oral 240 / 240 750 / 750 350 / 350 Output: Urine 300 / 300 0 / 0 Other: Meal Breakfast Percent of Meal Consumed 80% # Voids 1 1 Weight 88.36 kg Patient Weight 11/01/18 23:59 Weight 88.36 kg - Labs CBC & BMP: 10/30/18 05:41 10/30/18 05:41 Labs: Abnormal lab results WBC 18.7 K/mcL (4.3-11.1) H 10/30/18 05:41 Hgb 12.6 g/dL (12.9-16.9) L 10/30/18 05:41 RDW 15.2 % (11.5-14.5) H 10/30/18 05:41 Neutrophils # 14.0 K/mcL (1.6-8.9) H 10/30/18 05:41 Monocytes # 1.4 K/mcL (0.0-1.3) H 10/30/18 05:41 Creatinine 0.59 mg/dL (0.70-1.30) L 10/30/18 05:41 Glucose 107 mg/dL (70-105) H 10/30/18 05:41 Consult Discharge Plan - Plan Referrals: Naomi Lay, CAUSTIC LOADER [Primary Care Provider] -
[2018-11-01] MEDS: Fluticasone Propionate Nasal 50 MCG/SPRAY BOTTLE NS SCH (08:01)
[2018-11-01] MEDS: Aspirin Enteric Coated 81 MG Tablet PO SCH (08:02)
[2018-11-01 11:45] VITALS: BP 120/76
== END 2018-11-01 12:41 | disposition home health service (06) | DRG 454 ==
LOC: SAMDAY 06:04 → 3NENU 13:29
PROVIDERS: ADMIT Orthopaedic Surgery Orthopaedic Surgery of the Spine; ATTEND Orthopaedic Surgery Orthopaedic Surgery of the Spine

== ENCOUNTER 2021-09-30 17:38 | Inpatient (IN) ==
[2021-09-30] MEDS ORDERED: *HR* HYDROcodone/Acet 5/325 mg TABLET PO PRN (23:08)
[2021-09-30] MEDS ORDERED: Naloxone 0.4 MG/ML INJ IVP PRN (23:08)
[2021-09-30] MEDS ORDERED: Saliva Stimulant 44.3ml BOTTLE PO PRN (23:23)
[2021-09-30] MEDS: Ipratropium/Albuterol Neb 3 ML IH SCH (23:59)
[2021-10-01] MEDS ORDERED: Isovue-370 500 ML BOTTLE IVP ONE
[2021-10-01 00:13] LABS: ABG Base Excess 4 mEq/L (-2 to 3); ABG HCO3 29 mEq/L (21-27); ABG Oxygen Saturation 89 % (95-98); ABG PCO2 44 mmHg (35-45); ABG PH 7.43 pH Units (7.32-7.45); ABG PO2 55 mmHg (85-104); ABG TCO2 30 mEq/L (20-26)
[2021-10-01 00:49] LABS: Basophils # 0.1 K/mcL (0.0-0.2); Basophils % 0.3 %; Hematocrit 34.4 % (37.5-50.1); Hemoglobin 10.7 g/dL (12.9-16.9); Lymphocytes # 2.4 K/mcL (0.6-4.6); Lymphocytes % 11.3 %; Mean Corpuscular HGB Conc 31.1 g/dL (31.6-35.5); Mean Corpuscular Hemoglobin 27.2 pg (28.0-33.3); Mean Corpuscular Volume 87.5 fL (83.0-100.0); Mean Platelet Volume 8.9 fL (9.4-12.4); Monocytes # 0.6 K/mcL (0.0-1.3); Monocytes % 2.7 %; Platelet Count 606 K/mcL (140-400); Red Blood Count 3.93 M/mcL (4.19-5.50); Segmented Neutrophils % 83.7 %; White Blood Count 21.5 K/mcL (4.3-11.1)
[2021-10-01 00:58] LABS: INR 1.3; Prothrombin Time 14.7 Seconds (9.4-12.1)
[2021-10-01 00:59] LABS: Alanine Aminotransferase 21 Units/L (7-52); Albumin 2.9 g/dL (3.5-5.7); Albumin/Globulin Ratio 0.5 (1.1-2.2); Alkaline Phosphatase 99 Units/L (34-104); Aspartate Amino Transferase 14 Units/L (13-39); BUN/Creatinine Ratio 37 (6-26); Bilirubin,Total 0.3 mg/dL (0.3-1.0); Blood Urea Nitrogen 22 mg/dL (8-23); Calcium 9.5 mg/dL (8.6-10.3); Carbon Dioxide 27 mEq/L (23-29); Chloride 99 mEq/L (98-107); Globulin 5.3 g/dL (2.4-3.5); Glucose 113 mg/dL (70-105); Magnesium 1.7 mg/dL (1.6-2.6); Osmolality,Calculated 286 (280-300); Phosphorous 4.5 mg/dL (2.7-4.5); Potassium 4.2 mEq/L (3.5-5.1); Sodium 136 mEq/L (136-145); Total Protein 8.2 g/dL (6.4-8.9); eGFR For African Americans > 60 (> 60); eGFR For Non-African Americans > 60 (> 60)
[2021-10-01 01:00] LABS: Activated Partial Thrombo Time 34.3 Seconds (26.0-36.0)
[2021-10-01] MEDS ORDERED: traZODone 50 MG TABLET PO PRN ×2 (01:30→06:06)
[2021-10-01] MEDS ORDERED: MethylPREDNISolone 40 MG/ML VIAL IVP ONE (01:33)
[2021-10-01] MEDS ORDERED: Aspirin Enteric Coated 325 MG Tablet PO STA (01:33)
[2021-10-01] MEDS ORDERED: Perflutren Lipid Microsphere 1.3 ML in 0.9 % Sodium Chloride 8.7 ML IVP PRN (01:40)
[2021-10-01] MEDS: Piperacillin/Tazobactam 3.375 GM in 0.9 % Sodium Chloride Mini Bag 100 ML IVPB SCH ×3 (01:59→21:05)
[2021-10-01] MEDS: Nicotine 21 MG PATCH.TD24 TD SCH ×3 (02:06→08:43)
[2021-10-01 02:32] LABS: Bilirubin,Urine Negative (Negative); Blood,Urine Negative (Negative); Clarity,Urine Clear (Clear); Color,Urine Light-Yellow (Yellow); Glucose,Urine (UA) Normal (Normal); Ketones,Urine Negative (Negative); Leukocyte Esterase,Urine Negative (Negative); Nitrite,Urine Negative (Negative); PH,Urine 6.5 pH Units (5.0-8.0); Protein,Urine Negative (Neg-Trace); Specific Gravity,Urine > 1.030 (1.010-1.025); Urobilinogen,Urine Normal (Normal)
[2021-10-01] MEDS: Ipratropium/Albuterol Neb 3 ML IH SCH ×5 (03:13→19:46)
[2021-10-01 03:23] LABS: Adenovirus Not Detected (Not Detect); Coronavirus 229E Not Detected (Not Detect); Coronavirus HKU1 Not Detected (Not Detect); Coronavirus NL63 Not Detected (Not Detect); Coronavirus OC43 Not Detected (Not Detect); Human Metapneumovirus Not Detected (Not Detect); Human Rhinovirus/Enterovirus Not Detected (Not Detect); Influenza A Subtype 2009 H1 Not Detected (Not Detect); SARS-CoV-2 Not Detected (Not Detect)
[2021-10-01 03:24] LABS: Bordetella Pertussis Not Detected (Not Detect); Chlamydophila pneumoniae Not Detected (Not Detect); Influenza B Not Detected (Not Detect); Mycoplasma pneumoniae Not Detected (Not Detect); Parainfluenza Virus 1 Not Detected (Not Detect); Parainfluenza Virus 2 Not Detected (Not Detect); Parainfluenza Virus 3 Not Detected (Not Detect); Parainfluenza Virus 4 Not Detected (Not Detect); Respiratory Syncytial Virus Not Detected (Not Detect)
[2021-10-01] MEDS ORDERED: D5% in Water 1,000 ML IVC PRN (06:16)
[2021-10-01] MEDS ORDERED: *HR* Dextrose 50 % in Water (Syg) 50 ML SYRINGE IVP PRN (06:16)
[2021-10-01] MEDS ORDERED: Dextrose Gel 15 GM/37.5 ML TUBE PO PRN ×2 (06:16)
[2021-10-01] MEDS: Budesonide/Formoterol 160/4.5 1 PUFF INH IH SCH ×2 (08:11→19:46)
[2021-10-01] MEDS: Artificial Tears SOLN 15 ML BOTTLE BOTH EYES SCH ×4 (08:23→21:07)
[2021-10-01] MEDS: Multivit/Ca/Min/Fe/FA 1 TAB TABLET PO SCH (08:26)
[2021-10-01] MEDS: Gabapentin 100 MG CAPSULE PO SCH ×3 (08:26→21:06)
[2021-10-01] MEDS: Chlorhexidine Rinse 15 ML MOUTHWASH MM SCH ×2 (08:26→21:06)
[2021-10-01] MEDS: Folic Acid 1 MG TABLET PO SCH (08:26)
[2021-10-01] MEDS: Thiamine (B-1) 100 MG TABLET PO SCH (08:26)
[2021-10-01] MEDS: Divalproex (12 HR) 500 MG TABLET PO SCH (08:26)
[2021-10-01] MEDS: Lactobacillus 1 EACH CAP.SPRINK PO SCH ×2 (08:26→21:06)
[2021-10-01] MEDS: predniSONE 20 MG TABLET PO SCH (08:27)
[2021-10-01] MEDS: Cyanocobalamin (B-12) 1,000 MCG TABLET PO SCH (08:28)
[2021-10-01] MEDS: Azithromycin 250 MG TABLET PO SCH (08:29)
[2021-10-01] MEDS: Saline Nasal Spray 44 ML BOTTLE NS SCH ×4 (08:42→21:07)
[2021-10-01 11:25] LABS: Chol/HDL Ratio 3.9 (0-4.9)
[2021-10-01 11:33] LABS: Estimated Average Glucose 126 mg/dl
[2021-10-01 11:38] LABS: Thyroid Stimulating Hormone 0.997 mcIU/mL (0.340-5.600)
[2021-10-01 11:48] LABS: Vitamin B12 517 pg/mL (250-1100)
[2021-10-01 12:58] LABS: Folate > 22.3 ng/mL (3.0-16.0)
[2021-10-01] MEDS ORDERED: IVIG (wt based) Privigen 5 GM/50 ML INFUS..BTL IVC SCH (15:15)
[2021-10-01] MEDS ORDERED: 0.9 % Sodium Chloride 500 ML IVC PRN (15:17)
[2021-10-01] MEDS: Acetaminophen 325 MG TABLET PO SCH (16:44)
[2021-10-01] MEDS: Immune Glob, Gamma (Gammagard) 20 GM/200 ML INFUS..BTL IVC SCH (17:30)
[2021-10-01] MEDS: Immune Glob, Gamma (Gammagard) 5 GM/50 ML INFUS..BTL IVC SCH (20:04)
[2021-10-02] MEDS: Ipratropium/Albuterol Neb 3 ML IH SCH ×7 (00:13→23:49)
[2021-10-02 03:00] LABS: Basophils # 0.1 K/mcL (0.0-0.2); Basophils % 0.2 %; Eosinophils # 0.1 K/mcL (0.0-0.6); Eosinophils % 0.3 %; Hematocrit 28.7 % (37.5-50.1); Immature Granulocytes % 1.1 % (0-4); Lymphocytes # 2.9 K/mcL (0.6-4.6); Lymphocytes % 14.4 %; Mean Corpuscular HGB Conc 31.4 g/dL (31.6-35.5); Mean Corpuscular Hemoglobin 27.7 pg (28.0-33.3); Mean Corpuscular Volume 88.3 fL (83.0-100.0); Mean Platelet Volume 8.7 fL (9.4-12.4); Monocytes # 1.2 K/mcL (0.0-1.3); Neutrophils # 15.8 K/mcL (1.6-8.9); Platelet Count 477 K/mcL (140-400); Red Blood Count 3.25 M/mcL (4.19-5.50); White Blood Count 20.2 K/mcL (4.3-11.1)
[2021-10-02] MEDS: Piperacillin/Tazobactam 3.375 GM in 0.9 % Sodium Chloride Mini Bag 100 ML IVPB SCH ×2 (03:01→11:41)
[2021-10-02] MEDS: Acetaminophen 325 MG TABLET PO PRN (03:01)
[2021-10-02 03:20] LABS: BUN/Creatinine Ratio 48 (6-26); Blood Urea Nitrogen 29 mg/dL (8-23); Calcium 8.9 mg/dL (8.6-10.3); Carbon Dioxide 30 mEq/L (23-29); Chloride 101 mEq/L (98-107); Glucose 101 mg/dL (70-105); Osmolality,Calculated 288 (280-300); Sodium 136 mEq/L (136-145); eGFR For African Americans > 60 (> 60); eGFR For Non-African Americans > 60 (> 60)
[2021-10-02 03:21] LABS: Iron 17 mcg/dL (65-175)
[2021-10-02 03:39] LABS: Ferritin 87 ng/mL (20-250)
[2021-10-02] MEDS: Folic Acid 1 MG TABLET PO SCH (08:03)
[2021-10-02] MEDS: Multivit/Ca/Min/Fe/FA 1 TAB TABLET PO SCH (08:03)
[2021-10-02] MEDS: Cyanocobalamin (B-12) 1,000 MCG TABLET PO SCH (08:03)
[2021-10-02] MEDS: Lactobacillus 1 EACH CAP.SPRINK PO SCH ×2 (08:03→19:47)
[2021-10-02] MEDS: Thiamine (B-1) 100 MG TABLET PO SCH (08:03)
[2021-10-02] MEDS: Chlorhexidine Rinse 15 ML MOUTHWASH MM SCH (08:03)
[2021-10-02] MEDS: Azithromycin 250 MG TABLET PO SCH (08:03)
[2021-10-02] MEDS: predniSONE 20 MG TABLET PO SCH (08:03)
[2021-10-02] MEDS: Gabapentin 100 MG CAPSULE PO SCH ×3 (08:03→19:47)
[2021-10-02] MEDS: Divalproex (12 HR) 500 MG TABLET PO SCH (08:03)
[2021-10-02] MEDS: Artificial Tears SOLN 15 ML BOTTLE BOTH EYES SCH ×4 (08:04→19:48)
[2021-10-02] MEDS: Saline Nasal Spray 44 ML BOTTLE NS SCH ×4 (08:04→19:48)
[2021-10-02] MEDS: Nicotine 21 MG PATCH.TD24 TD SCH (08:11)
[2021-10-02] MEDS: Budesonide/Formoterol 160/4.5 1 PUFF INH IH SCH ×2 (08:22→19:29)
[2021-10-02 10:55] LABS: Red Blood Cell,CSF < 2000 RBC/mcL
[2021-10-02 11:00] LABS: Appearance,CSF Clear (Clear)
[2021-10-02 11:12] LABS: Glucose,CSF 71 mg/dL (40-70); Total Protein,CSF 23 mg/dL (15-45)
[2021-10-02] MEDS: Aspirin Enteric Coated 81 MG Tablet PO SCH (11:41)
[2021-10-02 15:07] LABS: Complement C3 167 mg/dL (87-200)
[2021-10-02] MEDS: Acetaminophen 325 MG TABLET PO SCH (16:41)
[2021-10-02] MEDS: Immune Glob, Gamma (Gammagard) 20 GM/200 ML INFUS..BTL IVC SCH (17:23)
[2021-10-02] MEDS: Sennosides/Docusate Sodium TABLET PO SCH (19:47)
[2021-10-02] MEDS: traZODone 50 MG TABLET PO SCH (19:47)
[2021-10-02] MEDS: Immune Glob, Gamma (Gammagard) 5 GM/50 ML INFUS..BTL IVC SCH (19:52)
[2021-10-03 01:29] LABS: Basophils % 0.3 %; Eosinophils % 0.2 %; Hematocrit 29.9 % (37.5-50.1); Hemoglobin 9.3 g/dL (12.9-16.9); Immature Granulocytes % 0.6 % (0-4); Lymphocytes # 2.9 K/mcL (0.6-4.6); Lymphocytes % 18.3 %; Mean Corpuscular HGB Conc 31.1 g/dL (31.6-35.5); Mean Corpuscular Hemoglobin 27.7 pg (28.0-33.3); Monocytes # 0.9 K/mcL (0.0-1.3); Monocytes % 5.4 %; Neutrophils # 11.9 K/mcL (1.6-8.9); Platelet Count 543 K/mcL (140-400); Red Blood Count 3.36 M/mcL (4.19-5.50); Segmented Neutrophils % 75.2 %; White Blood Count 15.8 K/mcL (4.3-11.1)
[2021-10-03 01:50] LABS: BUN/Creatinine Ratio 42 (6-26); Blood Urea Nitrogen 27 mg/dL (8-23); Calcium 8.8 mg/dL (8.6-10.3); Carbon Dioxide 30 mEq/L (23-29); Chloride 101 mEq/L (98-107); Glucose 107 mg/dL (70-105); Osmolality,Calculated 286 (280-300); Sodium 135 mEq/L (136-145); eGFR For African Americans > 60 (> 60); eGFR For Non-African Americans > 60 (> 60)
[2021-10-03] MEDS: Ipratropium/Albuterol Neb 3 ML IH SCH ×5 (03:26→21:13)
[2021-10-03] MEDS: Acetaminophen 325 MG TABLET PO PRN ×3 (03:55→20:56)
[2021-10-03] MEDS ORDERED: *HR* Enoxaparin 40 MG/0.4 ML SYRINGE SQ SCH (06:00)
[2021-10-03] MEDS: Azithromycin 250 MG TABLET PO SCH (08:02)
[2021-10-03] MEDS: predniSONE 20 MG TABLET PO SCH (08:02)
[2021-10-03] MEDS: Aspirin Enteric Coated 81 MG Tablet PO SCH (08:02)
[2021-10-03] MEDS: Lactobacillus 1 EACH CAP.SPRINK PO SCH ×2 (08:02→20:56)
[2021-10-03] MEDS: Multivit/Ca/Min/Fe/FA 1 TAB TABLET PO SCH (08:02)
[2021-10-03] MEDS: Gabapentin 100 MG CAPSULE PO SCH ×3 (08:02→20:58)
[2021-10-03] MEDS: Saline Nasal Spray 44 ML BOTTLE NS SCH ×4 (08:03→20:57)
[2021-10-03] MEDS: Nicotine 21 MG PATCH.TD24 TD SCH (08:03)
[2021-10-03] MEDS: Artificial Tears SOLN 15 ML BOTTLE BOTH EYES SCH ×4 (08:03→21:03)
[2021-10-03] MEDS: Thiamine (B-1) 100 MG TABLET PO SCH (08:03)
[2021-10-03] MEDS: Sennosides/Docusate Sodium TABLET PO SCH (08:03)
[2021-10-03] MEDS: Divalproex (12 HR) 500 MG TABLET PO SCH (08:03)
[2021-10-03] MEDS: Budesonide/Formoterol 160/4.5 1 PUFF INH IH SCH ×2 (11:34→21:13)
[2021-10-03] MEDS: Piperacillin/Tazobactam 3.375 GM in 0.9 % Sodium Chloride Mini Bag 100 ML IVPB SCH ×3 (12:51→17:40)
[2021-10-03] MEDS ORDERED: Perflutren Lipid Microsphere 1.3 ML in 0.9 % Sodium Chloride 8.7 ML IVP PRN (13:05)
[2021-10-03] MEDS ORDERED: Isovue-370 500 ML BOTTLE IVP ONE (13:11)
[2021-10-03] MEDS: Acetaminophen 325 MG TABLET PO SCH (16:11)
[2021-10-03 16:13] LABS: Hematocrit 32.3 % (37.5-50.1); Mean Corpuscular Hemoglobin 27.5 pg (28.0-33.3); Mean Platelet Volume 8.9 fL (9.4-12.4); Platelet Count 510 K/mcL (140-400); Red Blood Count 3.63 M/mcL (4.19-5.50); Red Cell Distribution Width 14.8 % (11.5-14.5); White Blood Count 13.1 K/mcL (4.3-11.1)
[2021-10-03] MEDS: Heparin 25,000UNIT/250ML 1/2NS 25,000 UNIT/250 ML IV.SOLN IVC SCH (17:47)
[2021-10-03 19:52] LABS: INR 1.1; Prothrombin Time 12.2 Seconds (9.4-12.1)
[2021-10-03] MEDS: traZODone 50 MG TABLET PO SCH (20:57)
[2021-10-04] MEDS: Ipratropium/Albuterol Neb 3 ML IH SCH ×7 (00:23→23:35)
[2021-10-04] MEDS: Piperacillin/Tazobactam 3.375 GM in 0.9 % Sodium Chloride Mini Bag 100 ML IVPB SCH ×3 (00:44→18:01)
[2021-10-04] MEDS ORDERED: *HR* Heparin 5,000 UNIT/ML VIAL IVP PRN (01:11)
[2021-10-04] MEDS: *HR* Heparin 5,000 UNIT/ML VIAL IVP PRN ×2 (01:52→22:10)
[2021-10-04] MEDS: Budesonide/Formoterol 160/4.5 1 PUFF INH IH SCH ×2 (07:23→20:13)
[2021-10-04] MEDS: Thiamine (B-1) 100 MG TABLET PO SCH (07:52)
[2021-10-04] MEDS: Gabapentin 100 MG CAPSULE PO SCH ×3 (07:52→19:59)
[2021-10-04] MEDS: predniSONE 20 MG TABLET PO SCH (07:52)
[2021-10-04] MEDS: Acetaminophen 325 MG TABLET PO PRN ×3 (07:52→19:59)
[2021-10-04] MEDS: Lactobacillus 1 EACH CAP.SPRINK PO SCH ×2 (07:52→19:59)
[2021-10-04] MEDS: Divalproex (12 HR) 500 MG TABLET PO SCH (07:53)
[2021-10-04] MEDS: Nicotine 21 MG PATCH.TD24 TD SCH (07:53)
[2021-10-04] MEDS: Azithromycin 250 MG TABLET PO SCH (07:53)
[2021-10-04] MEDS: Aspirin Enteric Coated 81 MG Tablet PO SCH (07:53)
[2021-10-04] MEDS: Sennosides/Docusate Sodium TABLET PO SCH (07:53)
[2021-10-04] MEDS: Multivit/Ca/Min/Fe/FA 1 TAB TABLET PO SCH (07:53)
[2021-10-04] MEDS: Artificial Tears SOLN 15 ML BOTTLE BOTH EYES SCH ×4 (07:54→20:00)
[2021-10-04] MEDS: Saline Nasal Spray 44 ML BOTTLE NS SCH ×4 (07:54→20:00)
[2021-10-04 09:20] LABS: Basophils # 0.1 K/mcL (0.0-0.2); Basophils % 0.5 %; Eosinophils # 0.2 K/mcL (0.0-0.6); Eosinophils % 1.4 %; Hematocrit 33.3 % (37.5-50.1); Hemoglobin 10.2 g/dL (12.9-16.9); Immature Granulocytes % 0.7 % (0-4); Lymphocytes # 4.7 K/mcL (0.6-4.6); Mean Corpuscular HGB Conc 30.6 g/dL (31.6-35.5); Mean Corpuscular Hemoglobin 26.9 pg (28.0-33.3); Mean Corpuscular Volume 87.9 fL (83.0-100.0); Mean Platelet Volume 9.3 fL (9.4-12.4); Monocytes # 1.2 K/mcL (0.0-1.3); Monocytes % 7.8 %; Neutrophils # 8.8 K/mcL (1.6-8.9); Platelet Count 552 K/mcL (140-400); Red Blood Count 3.79 M/mcL (4.19-5.50); Red Cell Distribution Width 15.1 % (11.5-14.5); Segmented Neutrophils % 58.6 %; White Blood Count 15.1 K/mcL (4.3-11.1)
[2021-10-04 09:23] LABS: BUN/Creatinine Ratio 37 (6-26); Blood Urea Nitrogen 22 mg/dL (8-23); Calcium 9.2 mg/dL (8.6-10.3); Carbon Dioxide 33 mEq/L (23-29); Chloride 98 mEq/L (98-107); Glucose 84 mg/dL (70-105); Osmolality,Calculated 285 (280-300); Potassium 3.9 mEq/L (3.5-5.1); Sodium 136 mEq/L (136-145); eGFR For African Americans > 60 (> 60); eGFR For Non-African Americans > 60 (> 60)
[2021-10-04] MEDS ORDERED: 0.9 % Sodium Chloride 500 ML IVC ONE (09:45)
[2021-10-04] MEDS ORDERED: Lidocaine Viscous Oral Soln 15 ML SOLUTION MM PRN (09:45)
[2021-10-04] MEDS: *HR* FentaNYL (PF) 100 MCG/2 ML VIAL IVP PRN ×2 (10:25→10:35)
[2021-10-04] MEDS: *HR* Midazolam HCl 5 MG/5 ML VIAL IVP PRN ×2 (10:25→10:35)
[2021-10-04] MEDS: Heparin 25,000UNIT/250ML 1/2NS 25,000 UNIT/250 ML IV.SOLN IVC SCH (16:50)
[2021-10-04] MEDS: Melatonin 3 MG TABLET PO PRN (20:00)
[2021-10-04] MEDS: traZODone 50 MG TABLET PO SCH (20:00)
[2021-10-05] MEDS: Piperacillin/Tazobactam 3.375 GM in 0.9 % Sodium Chloride Mini Bag 100 ML IVPB SCH ×3 (02:02→16:35)
[2021-10-05] MEDS: Ipratropium/Albuterol Neb 3 ML IH SCH ×3 (03:57→11:59)
[2021-10-05] MEDS: Acetaminophen 325 MG TABLET PO PRN ×3 (05:14→15:56)
[2021-10-05 05:18] LABS: Basophils # 0.1 K/mcL (0.0-0.2); Basophils % 0.7 %; Eosinophils # 0.3 K/mcL (0.0-0.6); Eosinophils % 1.7 %; Hematocrit 33.2 % (37.5-50.1); Immature Granulocytes % 0.8 % (0-4); Lymphocytes # 5.1 K/mcL (0.6-4.6); Mean Corpuscular HGB Conc 30.1 g/dL (31.6-35.5); Mean Corpuscular Hemoglobin 26.8 pg (28.0-33.3); Mean Platelet Volume 9.3 fL (9.4-12.4); Monocytes % 6.6 %; Neutrophils # 8.5 K/mcL (1.6-8.9); Platelet Count 562 K/mcL (140-400); Red Blood Count 3.73 M/mcL (4.19-5.50); Red Cell Distribution Width 15.1 % (11.5-14.5); Segmented Neutrophils % 56.2 %; White Blood Count 15.1 K/mcL (4.3-11.1)
[2021-10-05 05:36] LABS: BUN/Creatinine Ratio 37 (6-26); Blood Urea Nitrogen 23 mg/dL (8-23); Calcium 9.2 mg/dL (8.6-10.3); Carbon Dioxide 31 mEq/L (23-29); Chloride 98 mEq/L (98-107); Glucose 84 mg/dL (70-105); Osmolality,Calculated 281 (280-300); Sodium 134 mEq/L (136-145); eGFR For African Americans > 60 (> 60); eGFR For Non-African Americans > 60 (> 60)
[2021-10-05] MEDS: Budesonide/Formoterol 160/4.5 1 PUFF INH IH SCH ×2 (07:50→20:16)
[2021-10-05] MEDS: Lactobacillus 1 EACH CAP.SPRINK PO SCH ×2 (08:45→20:34)
[2021-10-05] MEDS: Divalproex (12 HR) 500 MG TABLET PO SCH (08:45)
[2021-10-05] MEDS: predniSONE 20 MG TABLET PO SCH (08:45)
[2021-10-05] MEDS: Sennosides/Docusate Sodium TABLET PO SCH (08:45)
[2021-10-05] MEDS: Multivit/Ca/Min/Fe/FA 1 TAB TABLET PO SCH (08:46)
[2021-10-05] MEDS: Aspirin Enteric Coated 81 MG Tablet PO SCH (08:46)
[2021-10-05] MEDS: Gabapentin 100 MG CAPSULE PO SCH ×3 (08:46→20:34)
[2021-10-05] MEDS: Thiamine (B-1) 100 MG TABLET PO SCH (08:46)
[2021-10-05] MEDS: Nicotine 21 MG PATCH.TD24 TD SCH (08:47)
[2021-10-05] MEDS: Saline Nasal Spray 44 ML BOTTLE NS SCH ×4 (08:48→20:35)
[2021-10-05] MEDS: Artificial Tears SOLN 15 ML BOTTLE BOTH EYES SCH ×4 (08:48→20:35)
[2021-10-05] MEDS: MOM Conc 10 ML UD.LIQ PO SCH ×2 (08:48→11:12)
[2021-10-05 09:29] LABS: % Iron Saturation 6 % (20-55); Transferrin 198 mg/dL (200-400)
[2021-10-05] MEDS ORDERED: Ipratropium/Albuterol Neb 3 ML IH PRN (13:10)
[2021-10-05] MEDS: Heparin 25,000UNIT/250ML 1/2NS 25,000 UNIT/250 ML IV.SOLN IVC SCH (13:27)
[2021-10-05 14:18] LABS: Amphetamine Screen,Urine Negative ng/mL (Cutoff=1000); Barbiturate Screen,Urine Negative ng/mL (Cutoff=200); Benzodiazepines Screen,Urine Negative ng/mL (Cutoff=200); Cannabinoid Screen,Urine Negative ng/mL (Cutoff = 50); Cocaine Screen,Urine Negative ng/mL (Cutoff= 300); Opiate Screen,Urine Negative ng/mL (Cutoff=300); Phencyclidine Screen,Urine Negative ng/mL (Cutoff=25)
[2021-10-05] MEDS: traZODone 50 MG TABLET PO SCH (20:33)
[2021-10-06 02:24] LABS: Lambda Qnt Free Light Chains 34.89 mg/L (5.71-26.30)
[2021-10-06] MEDS: Acetaminophen 325 MG TABLET PO PRN ×2 (02:33→14:48)
[2021-10-06] MEDS: Piperacillin/Tazobactam 3.375 GM in 0.9 % Sodium Chloride Mini Bag 100 ML IVPB SCH ×3 (02:34→17:28)
[2021-10-06] MEDS: Budesonide/Formoterol 160/4.5 1 PUFF INH IH SCH ×2 (07:30→20:09)
[2021-10-06 07:47] LABS: Basophils # 0.1 K/mcL (0.0-0.2); Basophils % 0.7 %; Eosinophils # 0.4 K/mcL (0.0-0.6); Eosinophils % 2.3 %; Hematocrit 36.2 % (37.5-50.1); Hemoglobin 11.2 g/dL (12.9-16.9); Immature Granulocytes % 1.2 % (0-4); Lymphocytes % 38.1 %; Mean Corpuscular HGB Conc 30.9 g/dL (31.6-35.5); Mean Corpuscular Volume 87.2 fL (83.0-100.0); Mean Platelet Volume 10.6 fL (9.4-12.4); Monocytes # 1.4 K/mcL (0.0-1.3); Monocytes % 7.6 %; Neutrophils # 9.1 K/mcL (1.6-8.9); Platelet Count 507 K/mcL (140-400); Red Blood Count 4.15 M/mcL (4.19-5.50); Red Cell Distribution Width 15.3 % (11.5-14.5); Segmented Neutrophils % 50.1 %; White Blood Count 18.2 K/mcL (4.3-11.1)
[2021-10-06] MEDS ORDERED: Ketorolac 30 MG/ML VIAL IM ONE ×2 (07:51→17:57)
[2021-10-06] MEDS: Gabapentin 100 MG CAPSULE PO SCH ×3 (08:13→21:05)
[2021-10-06] MEDS: Aspirin Enteric Coated 81 MG Tablet PO SCH (08:13)
[2021-10-06] MEDS: Lactobacillus 1 EACH CAP.SPRINK PO SCH ×2 (08:13→21:05)
[2021-10-06] MEDS: Sennosides/Docusate Sodium TABLET PO SCH (08:13)
[2021-10-06] MEDS: Divalproex (12 HR) 500 MG TABLET PO SCH (08:13)
[2021-10-06] MEDS: Multivit/Ca/Min/Fe/FA 1 TAB TABLET PO SCH (08:13)
[2021-10-06] MEDS: Thiamine (B-1) 100 MG TABLET PO SCH (08:13)
[2021-10-06] MEDS: Saline Nasal Spray 44 ML BOTTLE NS SCH ×4 (08:13→21:04)
[2021-10-06] MEDS: Artificial Tears SOLN 15 ML BOTTLE BOTH EYES SCH ×4 (08:13→21:04)
[2021-10-06] MEDS: MOM Conc 10 ML UD.LIQ PO SCH (08:14)
[2021-10-06] MEDS: Nicotine 21 MG PATCH.TD24 TD SCH (08:14)
[2021-10-06] MEDS: Heparin 25,000UNIT/250ML 1/2NS 25,000 UNIT/250 ML IV.SOLN IVC SCH (10:11)
[2021-10-06 10:18] LABS: Mycoplasma pneumoniae IgG 2.72 U/L (<=0.09)
[2021-10-06 10:42] LABS: Kappa Qnt Free Light Chains 37.17 mg/L (3.30-19.40)
[2021-10-06 10:43] LABS: Immunoglobulin A 475 mg/dL (68-408); Immunoglobulin G 3151 mg/dL (768-1632); Immunoglobulin M 168 mg/dL (35-263)
[2021-10-06 11:58] LABS: BUN/Creatinine Ratio 37 (6-26); Blood Urea Nitrogen 28 mg/dL (8-23); Calcium 9.4 mg/dL (8.6-10.3); Carbon Dioxide 31 mEq/L (23-29); Chloride 99 mEq/L (98-107); Glucose 89 mg/dL (70-105); Osmolality,Calculated 287 (280-300); Potassium 3.5 mEq/L (3.5-5.1); Sodium 136 mEq/L (136-145); eGFR For African Americans > 60 (> 60); eGFR For Non-African Americans > 60 (> 60)
[2021-10-06] MEDS: *HR* Heparin 5,000 UNIT/ML VIAL IVP PRN (12:06)
[2021-10-06 19:42] LABS: ANCA IFA Titer <1:20 (<1:20)
[2021-10-06] MEDS ORDERED: Apixaban 5 MG TABLET PO SCH (21:00)
[2021-10-06] MEDS: traZODone 50 MG TABLET PO SCH (21:04)
[2021-10-06] MEDS: Apixaban 5 MG TABLET PO SCH (21:06)
[2021-10-07 06:12] LABS: Basophils # 0.1 K/mcL (0.0-0.2); Eosinophils # 0.7 K/mcL (0.0-0.6); Eosinophils % 6.2 %; Hematocrit 33.2 % (37.5-50.1); Lymphocytes # 4.2 K/mcL (0.6-4.6); Mean Corpuscular HGB Conc 30.1 g/dL (31.6-35.5); Mean Corpuscular Hemoglobin 26.7 pg (28.0-33.3); Mean Corpuscular Volume 88.8 fL (83.0-100.0); Mean Platelet Volume 9.6 fL (9.4-12.4); Monocytes % 8.9 %; Platelet Count 553 K/mcL (140-400); Red Blood Count 3.74 M/mcL (4.19-5.50); Red Cell Distribution Width 15.4 % (11.5-14.5); Segmented Neutrophils % 44.9 %
[2021-10-07 06:28] LABS: BUN/Creatinine Ratio 52 (6-26); Blood Urea Nitrogen 38 mg/dL (8-23); Calcium 9.3 mg/dL (8.6-10.3); Carbon Dioxide 33 mEq/L (23-29); Chloride 97 mEq/L (98-107); Glucose 75 mg/dL (70-105); Osmolality,Calculated 286 (280-300); Potassium 4.6 mEq/L (3.5-5.1); Sodium 134 mEq/L (136-145); eGFR For African Americans > 60 (> 60); eGFR For Non-African Americans > 60 (> 60)
[2021-10-07] MEDS: Acetaminophen 325 MG TABLET PO PRN ×2 (07:04→15:16)
[2021-10-07] MEDS: Budesonide/Formoterol 160/4.5 1 PUFF INH IH SCH ×2 (08:05→19:43)
[2021-10-07] MEDS: Multivit/Ca/Min/Fe/FA 1 TAB TABLET PO SCH (08:37)
[2021-10-07] MEDS: Thiamine (B-1) 100 MG TABLET PO SCH (08:37)
[2021-10-07] MEDS: Gabapentin 100 MG CAPSULE PO SCH ×3 (08:37→20:15)
[2021-10-07] MEDS: Apixaban 5 MG TABLET PO SCH ×2 (08:37→20:16)
[2021-10-07] MEDS: MOM Conc 10 ML UD.LIQ PO SCH (08:38)
[2021-10-07] MEDS: Divalproex (12 HR) 500 MG TABLET PO SCH (08:38)
[2021-10-07] MEDS: Saline Nasal Spray 44 ML BOTTLE NS SCH ×4 (08:38→20:15)
[2021-10-07] MEDS: Lactobacillus 1 EACH CAP.SPRINK PO SCH ×2 (08:38→20:17)
[2021-10-07] MEDS: Artificial Tears SOLN 15 ML BOTTLE BOTH EYES SCH ×4 (08:38→20:14)
[2021-10-07] MEDS: Aspirin Enteric Coated 81 MG Tablet PO SCH (08:38)
[2021-10-07] MEDS: Sennosides/Docusate Sodium TABLET PO SCH (08:38)
[2021-10-07] MEDS: Nicotine 21 MG PATCH.TD24 TD SCH (08:39)
[2021-10-07 10:21] LABS: ANCA IFA Pattern NONE DETECTED (None Detected); Serine Protease-3 Antibody 7 AU/mL (0-19)
[2021-10-07 10:53] LABS: ANA IgG by ELISA NONE DETECTED (None Detected)
[2021-10-07] MEDS ORDERED: Ketorolac 30 MG/ML VIAL IM ONE (11:10)
[2021-10-07] MEDS: Ketorolac 30 MG/ML VIAL IM PRN (19:18)
[2021-10-07] MEDS: levoFLOXacin 750 MG TABLET PO SCH (19:18)
[2021-10-07] MEDS: Amoxicillin 500 MG CAPSULE PO SCH (20:15)
[2021-10-07] MEDS: traZODone 50 MG TABLET PO SCH (20:16)
[2021-10-08] MEDS: Ketorolac 30 MG/ML VIAL IM PRN ×3 (03:43→20:30)
[2021-10-08 06:47] LABS: Hematocrit 33.8 % (37.5-50.1); Hemoglobin 10.1 g/dL (12.9-16.9); Mean Corpuscular HGB Conc 29.9 g/dL (31.6-35.5); Mean Corpuscular Hemoglobin 26.6 pg (28.0-33.3); Mean Corpuscular Volume 89.2 fL (83.0-100.0); Mean Platelet Volume 9.3 fL (9.4-12.4); Platelet Count 528 K/mcL (140-400); Red Blood Count 3.79 M/mcL (4.19-5.50); Red Cell Distribution Width 15.6 % (11.5-14.5); White Blood Count 12.8 K/mcL (4.3-11.1)
[2021-10-08 07:07] LABS: BUN/Creatinine Ratio 51 (6-26); Blood Urea Nitrogen 47 mg/dL (8-23); Calcium 9.1 mg/dL (8.6-10.3); Carbon Dioxide 34 mEq/L (23-29); Chloride 98 mEq/L (98-107); Glucose 81 mg/dL (70-105); Magnesium 2.3 mg/dL (1.6-2.6); Osmolality,Calculated 289 (280-300); Potassium 4.9 mEq/L (3.5-5.1); Sodium 134 mEq/L (136-145); eGFR For African Americans > 60 (> 60); eGFR For Non-African Americans > 60 (> 60)
[2021-10-08] MEDS: Budesonide/Formoterol 160/4.5 1 PUFF INH IH SCH ×2 (07:58→20:25)
[2021-10-08 08:46] LABS: Alpha 2 Globulin (PEP) 1.07 g/dL (0.48-1.05); Beta Globulin (PEP) 1.13 g/dL (0.48-1.10)
[2021-10-08 09:17] LABS: IFE Reflexed NOT DONE
[2021-10-08] MEDS: Amoxicillin 500 MG CAPSULE PO SCH ×2 (09:37→20:29)
[2021-10-08] MEDS: Gabapentin 100 MG CAPSULE PO SCH ×3 (09:37→20:29)
[2021-10-08] MEDS: Lactobacillus 1 EACH CAP.SPRINK PO SCH ×2 (09:38→20:28)
[2021-10-08] MEDS: Divalproex (12 HR) 500 MG TABLET PO SCH (09:38)
[2021-10-08] MEDS: Thiamine (B-1) 100 MG TABLET PO SCH (09:38)
[2021-10-08] MEDS: levoFLOXacin 750 MG TABLET PO SCH (09:38)
[2021-10-08] MEDS: Sennosides/Docusate Sodium TABLET PO SCH (09:38)
[2021-10-08] MEDS: Aspirin Enteric Coated 81 MG Tablet PO SCH (09:38)
[2021-10-08] MEDS: MOM Conc 10 ML UD.LIQ PO SCH (09:38)
[2021-10-08] MEDS: Apixaban 5 MG TABLET PO SCH ×2 (09:38→20:29)
[2021-10-08] MEDS: Multivit/Ca/Min/Fe/FA 1 TAB TABLET PO SCH (09:38)
[2021-10-08] MEDS: Saline Nasal Spray 44 ML BOTTLE NS SCH ×4 (09:39→20:30)
[2021-10-08] MEDS: Nicotine 21 MG PATCH.TD24 TD SCH (09:39)
[2021-10-08] MEDS: Artificial Tears SOLN 15 ML BOTTLE BOTH EYES SCH ×4 (09:40→20:31)
[2021-10-08] MEDS: traZODone 50 MG TABLET PO SCH (20:28)
[2021-10-09 04:20] LABS: Alpha 2 Globulin (PEP) 1.15 g/dL (0.48-1.05); Beta Globulin (PEP) 0.99 g/dL (0.48-1.10)
[2021-10-09] MEDS: Ketorolac 30 MG/ML VIAL IM PRN ×3 (04:46→20:49)
[2021-10-09 06:44] LABS: Hemoglobin 10.3 g/dL (12.9-16.9); Mean Corpuscular HGB Conc 31.2 g/dL (31.6-35.5); Mean Corpuscular Hemoglobin 27.9 pg (28.0-33.3); Mean Corpuscular Volume 89.4 fL (83.0-100.0); Mean Platelet Volume 9.7 fL (9.4-12.4); Platelet Count 545 K/mcL (140-400); Red Blood Count 3.69 M/mcL (4.19-5.50); Red Cell Distribution Width 15.6 % (11.5-14.5); White Blood Count 12.5 K/mcL (4.3-11.1)
[2021-10-09 07:02] LABS: BUN/Creatinine Ratio 46 (6-26); Blood Urea Nitrogen 41 mg/dL (8-23); Calcium 9.6 mg/dL (8.6-10.3); Carbon Dioxide 33 mEq/L (23-29); Chloride 98 mEq/L (98-107); Glucose 84 mg/dL (70-105); Osmolality,Calculated 287 (280-300); Potassium 4.7 mEq/L (3.5-5.1); Sodium 134 mEq/L (136-145); eGFR For African Americans > 60 (> 60); eGFR For Non-African Americans > 60 (> 60)
[2021-10-09] MEDS: Budesonide/Formoterol 160/4.5 1 PUFF INH IH SCH ×2 (07:49→20:36)
[2021-10-09] MEDS: MOM Conc 10 ML UD.LIQ PO SCH (08:59)
[2021-10-09] MEDS: Lactobacillus 1 EACH CAP.SPRINK PO SCH ×2 (09:00→20:17)
[2021-10-09] MEDS: Divalproex (12 HR) 500 MG TABLET PO SCH (09:00)
[2021-10-09] MEDS: Sennosides/Docusate Sodium TABLET PO SCH (09:00)
[2021-10-09] MEDS: Thiamine (B-1) 100 MG TABLET PO SCH (09:00)
[2021-10-09] MEDS: Amoxicillin 500 MG CAPSULE PO SCH ×2 (09:00→20:17)
[2021-10-09] MEDS: Artificial Tears SOLN 15 ML BOTTLE BOTH EYES SCH ×4 (09:00→20:18)
[2021-10-09] MEDS: Saline Nasal Spray 44 ML BOTTLE NS SCH ×4 (09:00→20:18)
[2021-10-09] MEDS: Multivit/Ca/Min/Fe/FA 1 TAB TABLET PO SCH (09:00)
[2021-10-09] MEDS: Gabapentin 100 MG CAPSULE PO SCH ×3 (09:00→20:17)
[2021-10-09] MEDS: Aspirin Enteric Coated 81 MG Tablet PO SCH (09:00)
[2021-10-09] MEDS: Nicotine 21 MG PATCH.TD24 TD SCH (09:00)
[2021-10-09] MEDS: Apixaban 5 MG TABLET PO SCH ×2 (09:00→20:18)
[2021-10-09] MEDS: levoFLOXacin 750 MG TABLET PO SCH (09:00)
[2021-10-09 09:09] LABS: Immunoglobulin A 501 mg/dL (68-408); Immunoglobulin G 2555 mg/dL (768-1632); Immunoglobulin M 176 mg/dL (35-263)
[2021-10-09 09:23] LABS: IFE Reflexed IFE Done
[2021-10-09] MEDS: traZODone 50 MG TABLET PO SCH (20:17)
[2021-10-09 22:07] LABS: FACV Specimen WHOLE BLOOD
[2021-10-10 02:04] LABS: APTT (LE Anticoag) 43 sec (32-48); Diluted Russell Viper Venom 48 sec (33-44); LE Dil. Russell Viper Mix 1:1 39 sec (33-44); PT (LE-Anticoag) 11.1 sec (12.0-15.5)
[2021-10-10] MEDS: Ketorolac 30 MG/ML VIAL IM PRN ×3 (05:08→23:46)
[2021-10-10 06:47] LABS: Hemoglobin 10.6 g/dL (12.9-16.9); Mean Corpuscular HGB Conc 30.3 g/dL (31.6-35.5); Mean Corpuscular Hemoglobin 27.4 pg (28.0-33.3); Mean Corpuscular Volume 90.4 fL (83.0-100.0); Mean Platelet Volume 9.7 fL (9.4-12.4); Platelet Count 511 K/mcL (140-400); Red Blood Count 3.87 M/mcL (4.19-5.50); Red Cell Distribution Width 15.8 % (11.5-14.5); White Blood Count 13.3 K/mcL (4.3-11.1)
[2021-10-10 07:01] LABS: BUN/Creatinine Ratio 42 (6-26); Blood Urea Nitrogen 38 mg/dL (8-23); Calcium 9.6 mg/dL (8.6-10.3); Carbon Dioxide 30 mEq/L (23-29); Chloride 100 mEq/L (98-107); Glucose 81 mg/dL (70-105); Osmolality,Calculated 286 (280-300); Potassium 4.9 mEq/L (3.5-5.1); Sodium 134 mEq/L (136-145); eGFR For African Americans > 60 (> 60); eGFR For Non-African Americans > 60 (> 60)
[2021-10-10 08:13] LABS: Fac V Leiden R506Q Mut Result NEGATIVE
[2021-10-10] MEDS: Artificial Tears SOLN 15 ML BOTTLE BOTH EYES SCH ×4 (08:30→20:06)
[2021-10-10] MEDS: Saline Nasal Spray 44 ML BOTTLE NS SCH ×4 (08:30→20:06)
[2021-10-10] MEDS: MOM Conc 10 ML UD.LIQ PO SCH (08:30)
[2021-10-10] MEDS: Aspirin Enteric Coated 81 MG Tablet PO SCH (08:31)
[2021-10-10] MEDS: Gabapentin 100 MG CAPSULE PO SCH ×3 (08:31→20:06)
[2021-10-10] MEDS: Amoxicillin 500 MG CAPSULE PO SCH ×2 (08:31→20:07)
[2021-10-10] MEDS: Multivit/Ca/Min/Fe/FA 1 TAB TABLET PO SCH (08:31)
[2021-10-10] MEDS: Nicotine 21 MG PATCH.TD24 TD SCH (08:31)
[2021-10-10] MEDS: Apixaban 5 MG TABLET PO SCH ×2 (08:31→20:07)
[2021-10-10] MEDS: Sennosides/Docusate Sodium TABLET PO SCH (08:32)
[2021-10-10] MEDS: Thiamine (B-1) 100 MG TABLET PO SCH (08:32)
[2021-10-10] MEDS: Divalproex (12 HR) 500 MG TABLET PO SCH (08:32)
[2021-10-10] MEDS: Lactobacillus 1 EACH CAP.SPRINK PO SCH ×2 (08:32→20:07)
[2021-10-10] MEDS: levoFLOXacin 500 MG TABLET PO SCH (08:32)
[2021-10-10] MEDS: Budesonide/Formoterol 160/4.5 1 PUFF INH IH SCH ×2 (11:28→20:06)
[2021-10-10] MEDS: traZODone 50 MG TABLET PO SCH (20:07)
[2021-10-11 01:01] LABS: Hematocrit 33.5 % (37.5-50.1); Hemoglobin 10.1 g/dL (12.9-16.9); Mean Corpuscular HGB Conc 30.1 g/dL (31.6-35.5); Mean Corpuscular Hemoglobin 26.6 pg (28.0-33.3); Mean Corpuscular Volume 88.2 fL (83.0-100.0); Mean Platelet Volume 9.9 fL (9.4-12.4); Platelet Count 475 K/mcL (140-400); Red Cell Distribution Width 15.8 % (11.5-14.5); White Blood Count 13.3 K/mcL (4.3-11.1)
[2021-10-11 01:23] LABS: BUN/Creatinine Ratio 54 (6-26); Blood Urea Nitrogen 49 mg/dL (8-23); Calcium 9.5 mg/dL (8.6-10.3); Carbon Dioxide 29 mEq/L (23-29); Chloride 100 mEq/L (98-107); Glucose 103 mg/dL (70-105); Osmolality,Calculated 287 (280-300); Sodium 132 mEq/L (136-145); eGFR For African Americans > 60 (> 60); eGFR For Non-African Americans > 60 (> 60)
[2021-10-11] MEDS: Budesonide/Formoterol 160/4.5 1 PUFF INH IH SCH ×2 (07:47→20:16)
[2021-10-11] MEDS: Multivit/Ca/Min/Fe/FA 1 TAB TABLET PO SCH (08:00)
[2021-10-11] MEDS: Thiamine (B-1) 100 MG TABLET PO SCH (08:00)
[2021-10-11] MEDS: Amoxicillin 500 MG CAPSULE PO SCH ×2 (08:00→20:53)
[2021-10-11] MEDS: Lactobacillus 1 EACH CAP.SPRINK PO SCH ×2 (08:01→20:52)
[2021-10-11] MEDS: Apixaban 5 MG TABLET PO SCH ×2 (08:01→20:53)
[2021-10-11] MEDS: Divalproex (12 HR) 500 MG TABLET PO SCH (08:01)
[2021-10-11] MEDS: Sennosides/Docusate Sodium TABLET PO SCH (08:01)
[2021-10-11] MEDS: Gabapentin 100 MG CAPSULE PO SCH ×3 (08:01→20:52)
[2021-10-11] MEDS: Aspirin Enteric Coated 81 MG Tablet PO SCH (08:01)
[2021-10-11] MEDS: levoFLOXacin 500 MG TABLET PO SCH (08:01)
[2021-10-11] MEDS: MOM Conc 10 ML UD.LIQ PO SCH (08:02)
[2021-10-11] MEDS: Saline Nasal Spray 44 ML BOTTLE NS SCH ×4 (08:04→21:09)
[2021-10-11] MEDS: Artificial Tears SOLN 15 ML BOTTLE BOTH EYES SCH ×4 (08:04→21:09)
[2021-10-11] MEDS: Nicotine 21 MG PATCH.TD24 TD SCH (08:08)
[2021-10-11] MEDS: Ketorolac 30 MG/ML VIAL IM PRN (08:21)
[2021-10-11] MEDS: Acetaminophen 325 MG TABLET PO PRN (17:51)
[2021-10-11] MEDS: traZODone 50 MG TABLET PO SCH (20:52)
[2021-10-11] MEDS: Melatonin 3 MG TABLET PO PRN (20:52)
[2021-10-12 01:01] LABS: Hematocrit 34.2 % (37.5-50.1); Hemoglobin 10.7 g/dL (12.9-16.9); Mean Corpuscular HGB Conc 31.3 g/dL (31.6-35.5); Mean Corpuscular Hemoglobin 27.5 pg (28.0-33.3); Mean Corpuscular Volume 87.9 fL (83.0-100.0); Platelet Count 463 K/mcL (140-400); Red Blood Count 3.89 M/mcL (4.19-5.50); Red Cell Distribution Width 15.7 % (11.5-14.5); White Blood Count 12.8 K/mcL (4.3-11.1)
[2021-10-12 01:25] LABS: BUN/Creatinine Ratio 49 (6-26); Blood Urea Nitrogen 39 mg/dL (8-23); Calcium 9.4 mg/dL (8.6-10.3); Carbon Dioxide 29 mEq/L (23-29); Chloride 101 mEq/L (98-107); Glucose 108 mg/dL (70-105); Osmolality,Calculated 288 (280-300); Potassium 4.6 mEq/L (3.5-5.1); Sodium 134 mEq/L (136-145); eGFR For African Americans > 60 (> 60); eGFR For Non-African Americans > 60 (> 60)
[2021-10-12] MEDS: Budesonide/Formoterol 160/4.5 1 PUFF INH IH SCH ×2 (08:14→20:08)
[2021-10-12] MEDS: Lactobacillus 1 EACH CAP.SPRINK PO SCH ×2 (08:35→20:02)
[2021-10-12] MEDS: Aspirin Enteric Coated 81 MG Tablet PO SCH (08:35)
[2021-10-12] MEDS: Apixaban 5 MG TABLET PO SCH ×2 (08:35→20:03)
[2021-10-12] MEDS: Multivit/Ca/Min/Fe/FA 1 TAB TABLET PO SCH (08:36)
[2021-10-12] MEDS: levoFLOXacin 500 MG TABLET PO SCH (08:36)
[2021-10-12] MEDS: MOM Conc 10 ML UD.LIQ PO SCH (08:36)
[2021-10-12] MEDS: Amoxicillin 500 MG CAPSULE PO SCH ×2 (08:36→20:02)
[2021-10-12] MEDS: Gabapentin 100 MG CAPSULE PO SCH ×3 (08:36→20:02)
[2021-10-12] MEDS: Thiamine (B-1) 100 MG TABLET PO SCH (08:36)
[2021-10-12] MEDS: Divalproex (12 HR) 500 MG TABLET PO SCH (08:36)
[2021-10-12] MEDS: Sennosides/Docusate Sodium TABLET PO SCH (08:36)
[2021-10-12] MEDS: Artificial Tears SOLN 15 ML BOTTLE BOTH EYES SCH ×4 (08:39→19:31)
[2021-10-12] MEDS: Saline Nasal Spray 44 ML BOTTLE NS SCH ×4 (08:39→19:31)
[2021-10-12] MEDS: Nicotine 21 MG PATCH.TD24 TD SCH (10:05)
[2021-10-12 19:26] LABS: BCR-ABL1 Specimen Source NOT SPECIFIED
[2021-10-12] MEDS: traZODone 50 MG TABLET PO SCH (20:02)
[2021-10-13] MEDS: MOM Conc 10 ML UD.LIQ PO SCH (07:38)
[2021-10-13] MEDS: Apixaban 5 MG TABLET PO SCH ×2 (07:38→20:20)
[2021-10-13] MEDS: Acetaminophen 325 MG TABLET PO PRN ×2 (07:39→14:53)
[2021-10-13] MEDS: Thiamine (B-1) 100 MG TABLET PO SCH (07:39)
[2021-10-13] MEDS: Divalproex (12 HR) 500 MG TABLET PO SCH (07:39)
[2021-10-13] MEDS: Multivit/Ca/Min/Fe/FA 1 TAB TABLET PO SCH (07:39)
[2021-10-13] MEDS: Artificial Tears SOLN 15 ML BOTTLE BOTH EYES SCH ×4 (07:39→20:21)
[2021-10-13] MEDS: Amoxicillin 500 MG CAPSULE PO SCH ×2 (07:39→20:20)
[2021-10-13] MEDS: Aspirin Enteric Coated 81 MG Tablet PO SCH (07:39)
[2021-10-13] MEDS: Gabapentin 100 MG CAPSULE PO SCH ×3 (07:39→20:20)
[2021-10-13] MEDS: Sennosides/Docusate Sodium TABLET PO SCH (07:39)
[2021-10-13] MEDS: Lactobacillus 1 EACH CAP.SPRINK PO SCH ×2 (07:39→20:20)
[2021-10-13] MEDS: levoFLOXacin 500 MG TABLET PO SCH (07:39)
[2021-10-13] MEDS: Nicotine 21 MG PATCH.TD24 TD SCH (07:40)
[2021-10-13] MEDS: Saline Nasal Spray 44 ML BOTTLE NS SCH ×4 (07:40→20:21)
[2021-10-13] MEDS: Budesonide/Formoterol 160/4.5 1 PUFF INH IH SCH ×2 (07:41→19:58)
[2021-10-13] MEDS: traZODone 50 MG TABLET PO SCH (20:19)
[2021-10-14] MEDS: Budesonide/Formoterol 160/4.5 1 PUFF INH IH SCH ×2 (08:04→19:57)
[2021-10-14] MEDS: Saline Nasal Spray 44 ML BOTTLE NS SCH ×4 (08:22→20:24)
[2021-10-14] MEDS: Artificial Tears SOLN 15 ML BOTTLE BOTH EYES SCH ×4 (08:22→20:24)
[2021-10-14] MEDS: Sennosides/Docusate Sodium TABLET PO SCH (08:23)
[2021-10-14] MEDS: levoFLOXacin 500 MG TABLET PO SCH (08:23)
[2021-10-14] MEDS: Gabapentin 100 MG CAPSULE PO SCH ×3 (08:23→20:23)
[2021-10-14] MEDS: Lactobacillus 1 EACH CAP.SPRINK PO SCH ×2 (08:23→20:23)
[2021-10-14] MEDS: Divalproex (12 HR) 500 MG TABLET PO SCH (08:23)
[2021-10-14] MEDS: Multivit/Ca/Min/Fe/FA 1 TAB TABLET PO SCH (08:24)
[2021-10-14] MEDS: Thiamine (B-1) 100 MG TABLET PO SCH (08:24)
[2021-10-14] MEDS: Aspirin Enteric Coated 81 MG Tablet PO SCH (08:24)
[2021-10-14] MEDS: Amoxicillin 500 MG CAPSULE PO SCH ×2 (08:24→20:23)
[2021-10-14] MEDS: Nicotine 21 MG PATCH.TD24 TD SCH (08:24)
[2021-10-14] MEDS: Apixaban 5 MG TABLET PO SCH ×2 (08:24→20:23)
[2021-10-14] MEDS: MOM Conc 10 ML UD.LIQ PO SCH (08:24)
[2021-10-14] MEDS: Acetaminophen 325 MG TABLET PO PRN (08:33)
[2021-10-14] MEDS: traZODone 50 MG TABLET PO SCH (20:23)
[2021-10-15] MEDS: Sennosides/Docusate Sodium TABLET PO SCH (07:33)
[2021-10-15] MEDS: Aspirin Enteric Coated 81 MG Tablet PO SCH (07:33)
[2021-10-15] MEDS: Amoxicillin 500 MG CAPSULE PO SCH ×2 (07:33→19:29)
[2021-10-15] MEDS: Lactobacillus 1 EACH CAP.SPRINK PO SCH ×2 (07:33→19:29)
[2021-10-15] MEDS: Divalproex (12 HR) 500 MG TABLET PO SCH (07:33)
[2021-10-15] MEDS: Gabapentin 100 MG CAPSULE PO SCH ×3 (07:33→19:29)
[2021-10-15] MEDS: Thiamine (B-1) 100 MG TABLET PO SCH (07:33)
[2021-10-15] MEDS: levoFLOXacin 500 MG TABLET PO SCH (07:33)
[2021-10-15] MEDS: Apixaban 5 MG TABLET PO SCH ×2 (07:33→19:29)
[2021-10-15] MEDS: Multivit/Ca/Min/Fe/FA 1 TAB TABLET PO SCH (07:33)
[2021-10-15] MEDS: Artificial Tears SOLN 15 ML BOTTLE BOTH EYES SCH ×4 (07:34→20:55)
[2021-10-15] MEDS: Nicotine 21 MG PATCH.TD24 TD SCH (07:34)
[2021-10-15] MEDS: Saline Nasal Spray 44 ML BOTTLE NS SCH ×4 (07:34→20:55)
[2021-10-15] MEDS: MOM Conc 10 ML UD.LIQ PO SCH (07:34)
[2021-10-15] MEDS: Budesonide/Formoterol 160/4.5 1 PUFF INH IH SCH ×2 (08:12→19:24)
[2021-10-15 14:40] LABS: JAK2 (V617F) SOURCE WHOLE BLOOD
[2021-10-15] MEDS: traZODone 50 MG TABLET PO SCH (19:30)
[2021-10-16 06:59] LABS: JAK2 (V617F) Mutation by PCR NOT DETECTED
[2021-10-16] MEDS: Budesonide/Formoterol 160/4.5 1 PUFF INH IH SCH ×2 (08:17→19:49)
[2021-10-16] MEDS: Apixaban 5 MG TABLET PO SCH ×2 (08:44→20:32)
[2021-10-16] MEDS: MOM Conc 10 ML UD.LIQ PO SCH (08:44)
[2021-10-16] MEDS: Sennosides/Docusate Sodium TABLET PO SCH (08:44)
[2021-10-16] MEDS: Lactobacillus 1 EACH CAP.SPRINK PO SCH ×2 (08:46→20:32)
[2021-10-16] MEDS: Amoxicillin 500 MG CAPSULE PO SCH ×2 (08:46→20:32)
[2021-10-16] MEDS: Divalproex (12 HR) 500 MG TABLET PO SCH (08:46)
[2021-10-16] MEDS: Gabapentin 100 MG CAPSULE PO SCH ×3 (08:46→20:32)
[2021-10-16] MEDS: Aspirin Enteric Coated 81 MG Tablet PO SCH (08:46)
[2021-10-16] MEDS: Multivit/Ca/Min/Fe/FA 1 TAB TABLET PO SCH (08:46)
[2021-10-16] MEDS: Thiamine (B-1) 100 MG TABLET PO SCH (08:46)
[2021-10-16] MEDS: levoFLOXacin 500 MG TABLET PO SCH (08:46)
[2021-10-16] MEDS: Nicotine 21 MG PATCH.TD24 TD SCH (08:47)
[2021-10-16] MEDS: Artificial Tears SOLN 15 ML BOTTLE BOTH EYES SCH ×4 (08:54→20:32)
[2021-10-16] MEDS: Saline Nasal Spray 44 ML BOTTLE NS SCH ×4 (08:54→20:32)
[2021-10-16 19:39] LABS: Adenovirus Not Detected (Not Detect); Coronavirus 229E Not Detected (Not Detect); Coronavirus HKU1 Not Detected (Not Detect); Coronavirus NL63 Not Detected (Not Detect); Coronavirus OC43 Not Detected (Not Detect); Human Metapneumovirus Not Detected (Not Detect); Human Rhinovirus/Enterovirus Not Detected (Not Detect); Influenza A Subtype 2009 H1 Not Detected (Not Detect); Influenza B Not Detected (Not Detect); Parainfluenza Virus 1 Not Detected (Not Detect); Parainfluenza Virus 2 Not Detected (Not Detect); SARS-CoV-2 Not Detected (Not Detect)
[2021-10-16 19:40] LABS: Bordetella Pertussis Not Detected (Not Detect); Chlamydophila pneumoniae Not Detected (Not Detect); Mycoplasma pneumoniae Not Detected (Not Detect); Parainfluenza Virus 3 Not Detected (Not Detect); Parainfluenza Virus 4 Not Detected (Not Detect); Respiratory Syncytial Virus Not Detected (Not Detect)
[2021-10-16] MEDS: traZODone 50 MG TABLET PO SCH (20:31)
[2021-10-17 03:51] VITALS: O2SAT 92
[2021-10-17] MEDS: Budesonide/Formoterol 160/4.5 1 PUFF INH IH SCH ×2 (07:35→19:51)
[2021-10-17] MEDS: Amoxicillin 500 MG CAPSULE PO SCH (09:54)
[2021-10-17] MEDS: Gabapentin 100 MG CAPSULE PO SCH ×2 (09:55→15:44)
[2021-10-17] MEDS: MOM Conc 10 ML UD.LIQ PO SCH (09:55)
[2021-10-17] MEDS: Divalproex (12 HR) 500 MG TABLET PO SCH (09:57)
[2021-10-17] MEDS: Thiamine (B-1) 100 MG TABLET PO SCH (09:57)
[2021-10-17] MEDS: Multivit/Ca/Min/Fe/FA 1 TAB TABLET PO SCH (09:58)
[2021-10-17] MEDS: Lactobacillus 1 EACH CAP.SPRINK PO SCH (09:58)
[2021-10-17] MEDS: Saline Nasal Spray 44 ML BOTTLE NS SCH ×3 (09:58→15:43)
[2021-10-17] MEDS: Sennosides/Docusate Sodium TABLET PO SCH (09:58)
[2021-10-17] MEDS: levoFLOXacin 500 MG TABLET PO SCH (09:58)
[2021-10-17] MEDS: Artificial Tears SOLN 15 ML BOTTLE BOTH EYES SCH ×3 (09:58→15:43)
[2021-10-17] MEDS: Aspirin Enteric Coated 81 MG Tablet PO SCH (09:58)
[2021-10-17] MEDS: Apixaban 5 MG TABLET PO SCH (09:58)
[2021-10-17] MEDS: Nicotine 21 MG PATCH.TD24 TD SCH (10:18)
[2021-10-17 11:18] VITALS: BP 112/74; PULSE 66; TEMP 98.4
== END 2021-10-17 20:40 | disposition other institution (70) | DRG 871 ==
LOC: 2NENU → SUATTDRO 21:52
PROVIDERS: ADMIT Internal Medicine; ATTEND Internal Medicine

== ENCOUNTER 2021-11-21 22:38 | Inpatient (IN) ==
[2021-11-22] MEDS ORDERED: Acetaminophen 325 MG TABLET PO PRN ×2 (03:22→08:18)
[2021-11-22] MEDS ORDERED: Ondansetron ODT 4 MG TAB.RAPDIS SL PRN (03:22)
[2021-11-22] MEDS ORDERED: *HR* HYDROcodone/Acet 5/325 mg TABLET PO PRN ×2 (03:22→08:18)
[2021-11-22] MEDS ORDERED: Melatonin 3 MG TABLET PO PRN (03:22)
[2021-11-22] MEDS ORDERED: *HR* OxyCODONE Immed Rel 5 MG TABLET PO PRN (03:22)
[2021-11-22] MEDS ORDERED: Naloxone 0.4 MG/ML INJ IVP PRN (03:22)
[2021-11-22] MEDS ORDERED: 0.9 % Sodium Chloride 1,000 ML IVC SCH (03:30)
[2021-11-22] MEDS ORDERED: Azithromycin 500 MG in 0.9 % Sodium Chloride 250 ML IVPB SCH (04:00)
[2021-11-22] MEDS: Ipratropium/Albuterol Neb 3 ML IH SCH ×5 (04:49→19:53)
[2021-11-22 08:23] LABS: Platelet Count 200 K/mcL (140-400)
[2021-11-22 08:24] LABS: Hematocrit 36.4 % (37.5-50.1); Hemoglobin 11.7 g/dL (12.9-16.9); Mean Corpuscular HGB Conc 32.1 g/dL (31.6-35.5); Mean Corpuscular Hemoglobin 27.1 pg (28.0-33.3); Mean Corpuscular Volume 84.5 fL (83.0-100.0); Mean Platelet Volume 10.5 fL (9.4-12.4); Red Blood Count 4.31 M/mcL (4.19-5.50); Red Cell Distribution Width 15.9 % (11.5-14.5); White Blood Count 26.1 K/mcL (4.3-11.1)
[2021-11-22 08:37] LABS: BUN/Creatinine Ratio 29 (6-26); Blood Urea Nitrogen 17 mg/dL (8-23); Calcium 8.7 mg/dL (8.6-10.3); Carbon Dioxide 28 mEq/L (23-29); Chloride 101 mEq/L (98-107); Glucose 83 mg/dL (70-105); Osmolality,Calculated 281 (280-300); Potassium 3.4 mEq/L (3.5-5.1); Sodium 135 mEq/L (136-145); eGFR For African Americans > 60 (> 60); eGFR For Non-African Americans > 60 (> 60)
[2021-11-22] MEDS: Apixaban 5 MG TABLET PO SCH ×2 (08:52→20:55)
[2021-11-22] MEDS: Piperacillin/Tazobactam 3.375 GM in 0.9 % Sodium Chloride Mini Bag 100 ML IVPB SCH ×2 (08:53→16:23)
[2021-11-22] MEDS ORDERED: cefTRIAXone 2,000 MG in 0.9 % Sodium Chloride 10 ML IVP SCH (09:00)
[2021-11-22] MEDS ORDERED: Potassium Chloride Elixir 20 MEQ/15 ML UDC PO ONE (10:50)
[2021-11-22] MEDS ORDERED: Ipratropium Neb 0.5 MG NEBULIZER IH PRN (15:53)
[2021-11-22] MEDS ORDERED: *HR* LORazepam 2 MG/ML VIAL IVP PRN ×3 (16:00)
[2021-11-22] MEDS: predniSONE 20 MG TABLET PO SCH (16:23)
[2021-11-22] MEDS: Divalproex (12 HR) 500 MG TABLET PO SCH (17:02)
[2021-11-22] MEDS: traZODone 50 MG TABLET PO SCH (20:55)
[2021-11-22] MEDS ORDERED: traZODone 50 MG TABLET PO ONE (23:30)
[2021-11-23] MEDS: Ipratropium/Albuterol Neb 3 ML IH SCH ×7 (00:09→23:27)
[2021-11-23] MEDS: Piperacillin/Tazobactam 3.375 GM in 0.9 % Sodium Chloride Mini Bag 100 ML IVPB SCH ×4 (00:20→23:31)
[2021-11-23 01:22] LABS: Adenovirus Not Detected (Not Detect); Bordetella Pertussis Not Detected (Not Detect); Chlamydophila pneumoniae Not Detected (Not Detect); Coronavirus 229E Not Detected (Not Detect); Coronavirus HKU1 Not Detected (Not Detect); Coronavirus NL63 Not Detected (Not Detect); Coronavirus OC43 Not Detected (Not Detect); Human Metapneumovirus Not Detected (Not Detect); Human Rhinovirus/Enterovirus Not Detected (Not Detect); Influenza A Subtype 2009 H1 Not Detected (Not Detect); Influenza B Not Detected (Not Detect); Mycoplasma pneumoniae Not Detected (Not Detect); Parainfluenza Virus 1 Not Detected (Not Detect); Parainfluenza Virus 2 Not Detected (Not Detect); Parainfluenza Virus 3 Not Detected (Not Detect); Parainfluenza Virus 4 Not Detected (Not Detect); Respiratory Syncytial Virus Not Detected (Not Detect); SARS-CoV-2 Not Detected (Not Detect)
[2021-11-23 05:35] LABS: Basophils % 0.1 %; Hematocrit 36.4 % (37.5-50.1); Hemoglobin 11.6 g/dL (12.9-16.9); Immature Granulocytes % 0.4 % (0-4); Lymphocytes # 1.7 K/mcL (0.6-4.6); Lymphocytes % 9.8 %; Mean Corpuscular HGB Conc 31.9 g/dL (31.6-35.5); Mean Corpuscular Hemoglobin 27.1 pg (28.0-33.3); Monocytes # 0.3 K/mcL (0.0-1.3); Monocytes % 1.9 %; Platelet Count 181 K/mcL (140-400); Red Blood Count 4.28 M/mcL (4.19-5.50); Red Cell Distribution Width 15.6 % (11.5-14.5); Segmented Neutrophils % 87.8 %; White Blood Count 17.1 K/mcL (4.3-11.1)
[2021-11-23 06:06] LABS: BUN/Creatinine Ratio 26 (6-26); Blood Urea Nitrogen 14 mg/dL (8-23); Calcium 9.4 mg/dL (8.6-10.3); Carbon Dioxide 26 mEq/L (23-29); Chloride 101 mEq/L (98-107); Glucose 138 mg/dL (70-105); Magnesium 1.8 mg/dL (1.6-2.6); Osmolality,Calculated 285 (280-300); Potassium 3.7 mEq/L (3.5-5.1); Sodium 136 mEq/L (136-145); eGFR For African Americans > 60 (> 60); eGFR For Non-African Americans > 60 (> 60)
[2021-11-23] MEDS: Vitamin B Complex/Vit C/Vit E 1 EACH TABLET PO SCH (10:08)
[2021-11-23] MEDS: Thiamine (B-1) 100 MG TABLET PO SCH (10:08)
[2021-11-23] MEDS: predniSONE 20 MG TABLET PO SCH (10:08)
[2021-11-23] MEDS: Divalproex (12 HR) 500 MG TABLET PO SCH (10:08)
[2021-11-23] MEDS: Folic Acid 1 MG TABLET PO SCH (10:08)
[2021-11-23] MEDS: Apixaban 5 MG TABLET PO SCH ×2 (10:09→19:42)
[2021-11-23] MEDS: traZODone 50 MG TABLET PO SCH (19:42)
[2021-11-23] MEDS ORDERED: traZODone 50 MG TABLET PO ONE (19:52)
[2021-11-24] MEDS: Ipratropium/Albuterol Neb 3 ML IH SCH ×6 (04:05→23:38)
[2021-11-24 07:10] LABS: Basophils % 0.1 %; Eosinophils % 0.3 %; Hematocrit 34.7 % (37.5-50.1); Hemoglobin 10.7 g/dL (12.9-16.9); Immature Granulocytes % 0.5 % (0-4); Lymphocytes % 20.5 %; Mean Corpuscular HGB Conc 30.8 g/dL (31.6-35.5); Mean Corpuscular Volume 84.2 fL (83.0-100.0); Mean Platelet Volume 9.9 fL (9.4-12.4); Monocytes # 0.6 K/mcL (0.0-1.3); Monocytes % 4.1 %; Platelet Count 218 K/mcL (140-400); Red Blood Count 4.12 M/mcL (4.19-5.50); Red Cell Distribution Width 15.5 % (11.5-14.5); Segmented Neutrophils % 74.5 %; White Blood Count 14.7 K/mcL (4.3-11.1)
[2021-11-24] MEDS: Piperacillin/Tazobactam 3.375 GM in 0.9 % Sodium Chloride Mini Bag 100 ML IVPB SCH ×2 (07:12→16:25)
[2021-11-24] MEDS: predniSONE 20 MG TABLET PO SCH (07:13)
[2021-11-24] MEDS: Folic Acid 1 MG TABLET PO SCH (07:13)
[2021-11-24] MEDS: Thiamine (B-1) 100 MG TABLET PO SCH (07:13)
[2021-11-24] MEDS: Vitamin B Complex/Vit C/Vit E 1 EACH TABLET PO SCH (07:13)
[2021-11-24] MEDS: Apixaban 5 MG TABLET PO SCH ×2 (07:13→19:53)
[2021-11-24] MEDS: Divalproex (12 HR) 500 MG TABLET PO SCH (07:15)
[2021-11-24 07:17] LABS: Magnesium 1.7 mg/dL (1.6-2.6); Phosphorous 1.9 mg/dL (2.7-4.5)
[2021-11-24 07:18] LABS: BUN/Creatinine Ratio 33 (6-26); Blood Urea Nitrogen 16 mg/dL (8-23); Carbon Dioxide 28 mEq/L (23-29); Chloride 102 mEq/L (98-107); Glucose 116 mg/dL (70-105); Osmolality,Calculated 282 (280-300); Potassium 3.2 mEq/L (3.5-5.1); Sodium 135 mEq/L (136-145); eGFR For African Americans > 60 (> 60); eGFR For Non-African Americans > 60 (> 60)
[2021-11-24] MEDS ORDERED: Potassium Phosphate 44 MEQ in 0.9 % Sodium Chloride 250 ML IVPB ONE (09:00)
[2021-11-24] MEDS: traZODone 50 MG TABLET PO SCH (21:11)
[2021-11-24] MEDS ORDERED: traZODone 50 MG TABLET PO ONE (21:24)
[2021-11-25] MEDS: Piperacillin/Tazobactam 3.375 GM in 0.9 % Sodium Chloride Mini Bag 100 ML IVPB SCH ×2 (00:51→08:50)
[2021-11-25] MEDS: Ipratropium/Albuterol Neb 3 ML IH SCH ×3 (04:25→11:14)
[2021-11-25 05:51] LABS: Basophils % 0.3 %; Eosinophils # 0.2 K/mcL (0.0-0.6); Eosinophils % 1.5 %; Hematocrit 36.5 % (37.5-50.1); Hemoglobin 11.5 g/dL (12.9-16.9); Immature Granulocytes % 0.3 % (0-4); Lymphocytes # 2.9 K/mcL (0.6-4.6); Lymphocytes % 25.1 %; Mean Corpuscular HGB Conc 31.5 g/dL (31.6-35.5); Mean Corpuscular Hemoglobin 26.1 pg (28.0-33.3); Mean Platelet Volume 9.7 fL (9.4-12.4); Monocytes # 0.6 K/mcL (0.0-1.3); Monocytes % 4.7 %; Neutrophils # 7.9 K/mcL (1.6-8.9); Platelet Count 273 K/mcL (140-400); Red Cell Distribution Width 15.5 % (11.5-14.5); Segmented Neutrophils % 68.1 %; White Blood Count 11.6 K/mcL (4.3-11.1)
[2021-11-25 06:12] LABS: BUN/Creatinine Ratio 26 (6-26); Blood Urea Nitrogen 14 mg/dL (8-23); Carbon Dioxide 28 mEq/L (23-29); Chloride 103 mEq/L (98-107); Glucose 84 mg/dL (70-105); Osmolality,Calculated 286 (280-300); Potassium 3.4 mEq/L (3.5-5.1); Sodium 138 mEq/L (136-145); eGFR For African Americans > 60 (> 60); eGFR For Non-African Americans > 60 (> 60)
[2021-11-25 07:07] VITALS: BP 120/81; PULSE 79; TEMP 98.1
[2021-11-25] MEDS: Folic Acid 1 MG TABLET PO SCH (08:49)
[2021-11-25] MEDS: Apixaban 5 MG TABLET PO SCH (08:49)
[2021-11-25] MEDS: Thiamine (B-1) 100 MG TABLET PO SCH (08:49)
[2021-11-25] MEDS: Divalproex (12 HR) 500 MG TABLET PO SCH (08:49)
[2021-11-25] MEDS: predniSONE 20 MG TABLET PO SCH (08:49)
[2021-11-25] MEDS: Vitamin B Complex/Vit C/Vit E 1 EACH TABLET PO SCH (08:49)
[2021-11-25 11:21] VITALS: O2SAT 97
== END 2021-11-25 12:57 | disposition home health service (06) | DRG 177 ==
LOC: 3NENU → SUATTDRO 11-22 02:58
PROVIDERS: ADMIT Internal Medicine; ATTEND Internal Medicine